=== PATIENT | male | born 1955 | race Caucasian/White ===

== ENCOUNTER 2020-12-17 12:17 | Outpatient (REF) | payer OTHER, SELFPAY ==
[2020-12-17 12:49] LABS: MANUAL DIFF FLAG NO
[2020-12-17 12:51] LABS: Basophils Absolute Auto 0.1 X10*3/uL (0.0-0.2); Basophils Percent Auto 0.9 % (0-2); Eosinophils Absolute Auto 0.5 X10*3/uL (0.0-0.4); Eosinophils Percent Auto 6.2 % (0-4); Hematocrit 41.4 % (42-52); Hemoglobin 13.4 g/dl (14.0-18.0); Imm Gran Abs Auto 0.04 X10*3/uL (0.00-0.03); Imm Gran Pct Auto 0.5 % (0.0-0.4); Lymphocytes Absolute Auto 2.3 X10*3/uL (1.2-4.9); Lymphocytes Percent Auto 26.7 % (20-40); Mean Corpuscular HGB Conc 32.4 g/dl (31.0-36.0); Mean Corpuscular Hemoglobin 29.8 pg (27.0-33.0); Mean Corpuscular Volume 92.2 fL (80-98); Mean Platelet Volume 10.5 fL (9.4-12.4); Monocytes Absolute Auto 0.6 X10*3/uL (0.1-1.2); Monocytes Percent Auto 6.4 % (2-11); Neutrophils Absolute Auto 5.1 X10*3/uL (2.0-8.3); Neutrophils Percent Auto 59.3 % (45-73); Platelet Count 321 X10*3/uL (160-400); Red Blood Count 4.49 X10*6/uL (4.60-5.80); Red Cell Distribution Width 12.7 % (11.0-16.0); White Blood Count 8.6 X10*3/uL (4.8-10.8)
[2020-12-17 13:43] LABS: Albumin Level 4.4 g/dL (3.5-5.0); Anion Gap 15 (12-20); Blood Urea Nitrogen 20 mg/dL (9-16); Calcium 9.4 mg/dL (8.4-10.2); Carbon Dioxide 26 mmol/L (22-29); Chloride 103 mmol/L (96-108); Estimated Glomerular Filt Rate 46; Magnesium 1.7 mg/dL (1.6-2.6); Phosphorus 3.4 mg/dL (2.7-4.5); Potassium 4.4 mmol/L (3.3-5.1); Sodium 140 mmol/L (135-145)
[2020-12-18 22:11] LABS: Prot Elec - Alpha1 0.3 g/dL (0.2-0.3); Prot Elec - Beta 1 0.5 g/dL (0.4-0.6); Prot Elec - Beta 2 0.4 g/dL (0.2-0.5); Prot Elec - Gamma 0.9 g/dL (0.8-1.7)
[2020-12-19 11:42] LABS: PEU-Protein Creat Ratio Rand 1.197 (0.022-0.128); PEU-Rand. Prot/Creat Ratio 1197 mg/g creat (22-128); PEU-Random Ur. Gamma Globulin 12 %; PEU-Random Urine A1 Globulin 4 %; PEU-Random Urine A2 Globulin 6 %; PEU-Random Urine Albumin 66 %; PEU-Random Urine Beta Globulin 12 %; PEU-Random Urine Creatinine 127 mg/dL (20-320); PEU-Random Urine Protein 152 mg/dL (5-25)
[2020-12-19 12:01] LABS: Calcium (PTHI) 9.9 mg/dL (8.6-10.3); PTHI 45 pg/mL (14-64)
== END 2020-12-17 12:18 | disposition home or self-care (01) ==
LOC: HO.LAB 12:17
PROVIDERS: PCP Family Medicine; Visit Provider Internal Medicine Hypertension Specialist
DX: I13.10 Hypertensive heart and chronic kidney disease without heart failure, with stage 1 through stage 4 chronic kidney disease, or unspecified chronic kidney disease (principal); N18.2 Chronic kidney disease, stage 2 (mild); E83.52 Hypercalcemia
CPT/HCPCS: 80051; 82040; 82310; 82565; 82570; 83735; 83970; 84100; 84155; 84156; 84165; 84166; 84520; 85025

== ENCOUNTER 2021-01-15 13:17 | Emergency (ER) | payer OTHER, SELFPAY ==
--- NOTE | ~2021-01-15 | XR_ITS ---
EXAMINATION: XR CHEST CLINICAL INFORMATION: Chest pain COMPARISON: None TECHNIQUE: Frontal view of the chest was obtained. FINDINGS: No significant abnormality is noted involving the heart, lungs, mediastinum, bony thorax or soft tissues. XR/XR chest 1V IMPRESSION: Unremarkable chest examination.
[2021-01-15 14:31] VITALS: BP 133/70; PULSE 64; RESP 14; TEMP 536.9; TEMP 998.5; O2SAT 97; BMI 37.1
--- NOTE | 2021-01-15 20:57 | ECG_ITS ---
Test Reason : ABD PAIN Blood Pressure : / mmHG Vent. Rate : 053 BPM Atrial Rate : 053 BPM P-R Int : 176 ms QRS Dur : 138 ms QT Int : 450 ms P-R-T Axes : 036 -12 050 degrees QTc Int : 422 ms Sinus bradycardia Left ventricular hypertrophy with QRS widening and repolarization abnormality Abnormal ECG When compared to the previous EKG of QRS has widened now. Referred By: Roslyn Rose Electronically Signed By:Hugo Robbins
--- NOTE | 2021-01-15 21:00 | ED_ITS ---
HPI - Abdominal Pain General Chief Complaint: Abdominal Pain Stated Complaint: EPIGATRIC PAIN Time Seen by Provider: 01/15/21 20:13 History of Present Illness HPI narrative: Patient is a 65-year-old male presents today with having abdominal pain in the epigastric area. The pain is dull in nature. It is burning. It has been ongoing for about a month is fairly constant. It is worse with eating. Patient denies any chest pain shortness of breath diaphoresis. No vomiting. No nausea. No diarrhea. No abdominal surgery in the past. Patient went to urgent care had an EKG done subsequently was sent to the emergency department for further evaluation. Denies any coughing congestion upper respiratory symptoms. Denies any change in diet. No recent NSAID use. Patient from home. Patient has a history of diabetes. No history of hypertension. No history of high cholesterol, smoking, mi. Related Data Previous Rx's Medication Instructions Recorded omeprazole magnesium [Prilosec OTC] 20 mg PO DAILY #14 tab 01/16/21 Allergies Allergy/AdvReac Type Severity Reaction Status Date / Time No Known Allergies Allergy Unverified 07/04/20 15:59 [No Known Allergies*] Review of Systems Review of Systems Constitutional: No Weight loss, No Fever, No Chills, No Night Sweats, No Fatigue, No Malaise ENT/Mouth: No Hearing loss, No Ear Pain, No Nasal Congestion, No Sinus Pain, No Hoarseness, No sore throat, No Rhinorrhea, No Swallowing Difficulty Eyes: No Eye Pain, No Swelling, No Redness, No Foreign Body, No Discharge, No Vision Changes Cardiovascular: No Chest Pain, No SOB, No Dyspnea on Exertion, No Orthopnea, No Edema, No Palpitations Respiratory: No Cough, No Sputum, No Wheezing, No Smoke Exposure, No Dyspnea Gastrointestinal: No Nausea, No Vomiting, No Diarrhea, No Constipation, positive abdominal Pain, No Hematochezia, No Melena Genitourinary: no irregular bleeding, No Dysuria, No Urinary Frequency, No Hematuria, No Urinary Incontinence, No Urgency, No Flank Pain, No Urinary Flow Changes, No Hesitancy Musculoskeletal: No joint pain, No Myalgias, No Joint Swelling Skin: No Skin Lesions, No rash Neuro: No Weakness, No Numbness, No Paresthesias, No Loss of Consciousness, No Dizziness, No Headache Psych: No Anxiety/Panic, No Depression, No SI/HI/AH/VH, No Social Issues, Heme/Lymph: No Bruising, No Bleeding,No Lymphadenopathy Endocrine: No Polyuria, No Polydipsia, No Temperature Intolerance Physical Exam Vital Signs: Vital Signs: Last Vital Signs Temp 998.5 F H 01/15/21 14:31 Pulse 56 01/15/21 23:14 Resp 16 01/15/21 23:14 BP 146/73 H 01/15/21 23:14 Pulse Ox 96 01/15/21 23:14 Body Mass Index 37.1 Appearance: Alert. Oriented X3. No acute distress. Eyes: Pupils equal, round and reactive to light. ENT: Pharynx normal. Neck: Normal inspection. Neck supple. No lymph nodes noted. No crepitus CVS: Normal heart rate and rhythm. Pulses normal. Normal S1 and S2 Respiratory: No respiratory distress. Breath sounds normal. No Wheezing. No rales Abdomen: Soft and nontender. No rigidity. No distention. good BS x4 Skin: Skin warm and dry. Normal skin color. Normal skin turgor. Extremities: No lower extremity edema. Neurovascular intact to all extremities. No Lacerations. No Rash Neuro: Oriented X 3. No motor deficit. No sensory deficit. Moving all extermities. No slurred speech MDM - Abdominal Pain MDM Narrative Medical decision making narrative: Patient had epigastric pain atypical for ACS. Creatinine is minimally elevated which is also chronic. Patient's liver function tests are normal. Less likely biliary. Lipase is normal no evidence for pancreatitis. Pain has been persistent. Likely secondary to gastritis. However patient's EKG showed a new left bundle-branch block. The EKG was c ompared to an old EKG from 2017. Patient's case discussed with cardiology. Will get 2 sets of cardiac enzymes. If they are negative will have patient follow up closely with Cardiology. Currently in stable condition. Will start patient on PPI. Differential Diagnosis Differential diagnosis: Likely abdominal pain, acute appendicitis, bowel perforation, constipation, diverticulitis, endometriosis, gastritis, pa ncreatitis, peptic ulcer disease, renal colic and small bowel obstruction Lab Data Result diagrams: 01/15/21 21:19 01/15/21 21:19 Labs: Lab Results 01/15/21 01/15/21 01/15/21 Range/Units 21:19 21:19 21:19 WBC 11.6 H (4.8-10.8) X10*3/uL RBC 4.43 L (4.60-5.80) X10*6/uL Hgb 13.4 L (14.0-18.0) g/dl Hct 41.2 L (42-52) % MCV 93.0 (80-98) fL MCH 30.2 (27.0-33.0) pg MCHC 32.5 (31.0-36.0) g/dl RDW 13.2 (11.0-16.0) % Plt Count 325 (160-400) X10*3/uL MPV 10.1 (9.4-12.4) fL Immature Gran % (Auto) 0.4 (0.0-0.4) % Neut % (Auto) 64.1 (45-73) % Lymph % (Auto) 25.5 (20-40) % [place] % (Auto) 6.2 (2-11) % Eos % (Auto) 3.3 (0-4) % Baso % (Auto) 0.5 (0-2) % Lymph # (Auto) 2.9 (1.2-4.9) X10*3/uL Brewster # (Auto) 0.7 (0.1-1.2) X10*3/uL Eos # (Auto) 0.4 (0.0-0.4) X10*3/uL Baso # (Auto) 0.1 (0.0-0.2) X10*3/uL Abs Immat Gran (auto) 0.05 H (0.00-0.03) X10*3/uL Absolute Neuts (auto) 7.4 (2.0-8.3) X10*3/uL Absolute Nucleated RBC 0.000 (0.0-0.012) X10*3/uL Nucleated RBC % (auto) 0.0 (0.0-0.2) /100WBC Hold Blue Top SEE NOTE Sodium 141 (135-145) mmol/L Potassium 4.1 (3.3-5.1) mmol/L Chloride 105 (96-108) mmol/L Carbon Dioxide 25 (22-29) mmol/L Anion Gap 15 (12-20) BUN 21 H (9-16) mg/dL Creatinine 1.43 H (0.5-1.4) mg/dL Estim Creat Clear Calc 57.5 Estimated GFR 49 Random Glucose 121 H (60-115) mg/dL Calcium 9.7 (8.4-10.2) mg/dL Total Bilirubin 0.5 (0.0-1.0) mg/dL AST 19 (5-37) U/L ALT 16 (0-40) U/L Alkaline Phosphatase 87 (39-117) U/L Troponin I High Sens (<3.5-35.0) ng/L Total Protein 7.9 (6.5-8.0) g/dL Albumin 4.8 (3.5-5.0) g/dL Lipase 50 (8-78) U/L Urine Color Urine Appearance Urine pH (5.0-8.0) Ur Specific [place] (1.005-1.025) Urine Protein (NEG-TRACE) MG/DL Urine Glucose (UA) (NEG) MG/DL Urine Ketones (NEG) MG/DL Urine Blood (NEG) Urine Nitrite (NEG) Ur Leukocyte Esterase (NEG) Urine RBC (0) /HPF Urine WBC (0-4) /HPF Ur Squamous Epith Cells /LPF Urine Bacteria /LPF Urine Mucus /LPF 01/15/21 01/15/21 01/15/21 Range/Units 21:19 22:42 23:14 WBC (4.8-10.8) X10*3/uL RBC (4.60-5.80) X10*6/uL Hgb (14.0-18.0) g/dl Hct (42-52) % MCV (80-98) fL MCH (27.0-33.0) pg MCHC (31.0-36.0) g/dl RDW (11.0-16.0) % Plt Count (160-400) X10*3/uL MPV (9.4-12.4) fL Immature Gran % (Auto) (0.0-0.4) % Neut % (Auto) (45-73) % Lymph % (Auto) (20-40) % [place] % (Auto) (2-11) % Eos % (Auto) (0-4) % Baso % (Auto) (0-2) % Lymph # (Auto) (1.2-4.9) X10*3/uL [place] # (Auto) (0.1-1.2) X10*3/uL Eos # (Auto) (0.0-0.4) X10*3/uL Baso # (Auto) (0.0-0.2) X10*3/uL Abs Immat Gran (auto) (0.00-0.03) X10*3/uL Absolute Neuts (auto) (2.0-8.3) X10*3/uL Absolute Nucleated RBC (0.0-0.012) X10*3/uL Nucleated RBC % (auto) (0.0-0.2) /100WBC Hold Blue Top Sodium (135-145) mmol/L Potassium (3.3-5.1) mmol/L Chloride (96-108) mmol/L Carbon Dioxide (22-29) mmol/L Anion Gap (12-20) BUN (9-16) mg/dL Creatinine (0.5-1.4) mg/dL Estim Creat Clear Calc Estimated GFR Random Glucose (60-115) mg/dL Calcium (8.4-10.2) mg/dL Total Bilirubin (0.0-1.0) mg/dL AST (5-37) U/L ALT (0-40) U/L Alkaline Phosphatase (39-117) U/L Troponin I High Sens 9.7 11.9 (<3.5-35.0) ng/L Total Protein (6.5-8.0) g/dL Albumin (3.5-5.0) g/dL Lipase (8-78) U/L Urine Color YELLOW Urine Appearance CLEAR Urine pH 5.5 (5.0-8.0) Ur Specific [place] >= 1.030 H (1.005-1.025) Urine Protein 2+ H (NEG-TRACE) MG/DL Urine Glucose (UA) NEG (NEG) MG/DL Urine Ketones NEG (NEG) MG/DL Urine Blood TRACE (NEG) Urine Nitrite NEG (NEG) Ur Leukocyte Esterase NEG (NEG) Urine RBC 0-2 (0) /HPF Urine WBC 0-2 (0-4) /HPF Ur Squamous Epith Cells 1+ /LPF Urine Bacteria NONE /LPF Urine Mucus TRACE /LPF ECG Data Interpretation: Heart rate is 70 with significant left bundle-branch block which is new. Discharge Plan Discharge Clinical Impression: Gastritis, Chest pain Patient Disposition: Home, Self-Care Instructions: Chest Pain (ED), Gastritis (ED) Prescriptions: New omeprazole magnesium [Prilosec OTC] 20 mg tablet,delayed release (DR/EC) 20 mg PO DAILY Qty: 14 RF: 0 Referrals: Winifred Herrera MD [Primary Care Provider] - 2 days PMF Past Medical History Attestation statement: The following information was validated with the patient. Medical History HTN (hypertension) IDDM (insulin dependent diabetes mellitus) Social History Social History Advance Directives: No Advance Directives Information Provided: No
[2021-01-15] MEDS: Magnesium Hydrox/Alum Hydrox 30 ML ORAL.SUSP PO (21:20)
[2021-01-15] MEDS: ondansetron HCL 4 MG/2 ML VIAL IVPUSH (21:21)
[2021-01-15] MEDS: PHENobarb/Hyoscy/Atropine/Scop 10 ML ELIXIR PO (21:21)
[2021-01-15] MEDS: 0.9 % Sodium Chloride 1,000 ML 999 ML IV (21:21)
[2021-01-15] MEDS: Lidocaine HCl Viscous 2 % 15 ML SOLUTION MUCOUS MEM (21:21)
[2021-01-15 21:29] LABS: MANUAL DIFF FLAG NO
[2021-01-15 21:31] LABS: Basophils Absolute Auto 0.1 X10*3/uL (0.0-0.2); Basophils Percent Auto 0.5 % (0-2); Eosinophils Absolute Auto 0.4 X10*3/uL (0.0-0.4); Eosinophils Percent Auto 3.3 % (0-4); Hematocrit 41.2 % (42-52); Hemoglobin 13.4 g/dl (14.0-18.0); Imm Gran Abs Auto 0.05 X10*3/uL (0.00-0.03); Imm Gran Pct Auto 0.4 % (0.0-0.4); Lymphocytes Absolute Auto 2.9 X10*3/uL (1.2-4.9); Lymphocytes Percent Auto 25.5 % (20-40); Mean Corpuscular HGB Conc 32.5 g/dl (31.0-36.0); Mean Corpuscular Hemoglobin 30.2 pg (27.0-33.0); Mean Platelet Volume 10.1 fL (9.4-12.4); Monocytes Absolute Auto 0.7 X10*3/uL (0.1-1.2); Monocytes Percent Auto 6.2 % (2-11); Neutrophils Absolute Auto 7.4 X10*3/uL (2.0-8.3); Neutrophils Percent Auto 64.1 % (45-73); Platelet Count 325 X10*3/uL (160-400); Red Blood Count 4.43 X10*6/uL (4.60-5.80); Red Cell Distribution Width 13.2 % (11.0-16.0); White Blood Count 11.6 X10*3/uL (4.8-10.8)
[2021-01-15 21:52] LABS: Alanine Aminotransferase 16 U/L (0-40); Albumin Level 4.8 g/dL (3.5-5.0); Alkaline Phosphatase 87 U/L (39-117); Anion Gap 15 (12-20); Aspartate Amino Transferase 19 U/L (5-37); Bilirubin Total 0.5 mg/dL (0.0-1.0); Blood Urea Nitrogen 21 mg/dL (9-16); Calcium 9.7 mg/dL (8.4-10.2); Carbon Dioxide 25 mmol/L (22-29); Chloride 105 mmol/L (96-108); Creatinine Clr Calc Pharmacy 57.5; Estimated Glomerular Filt Rate 49; Glucose Random 121 mg/dL (60-115); Lipase 50 U/L (8-78); Potassium 4.1 mmol/L (3.3-5.1); Sodium 141 mmol/L (135-145); Total Protein 7.9 g/dL (6.5-8.0)
[2021-01-15 21:55] LABS: Troponin-I High Sensitivity 9.7 ng/L (<3.5-35.0)
[2021-01-15 22:50] LABS: Glucose Urine UA NEG (NEG); Leukocyte Esterase Urine NEG (NEG); Nitrite Urine NEG (NEG); PH 5.5 (5.0-8.0); Specific Gravity - Urine >= 1.030 (1.005-1.025); Urine Blood TRACE (NEG); Urine Ketones NEG (NEG); Urine Protein 2+ MG/DL (NEG-TRACE)
[2021-01-15 22:51] LABS: Appearance Urine CLEAR; Color Urine YELLOW
[2021-01-15 22:57] LABS: Mucus Urine TRACE /LPF; RBC Urine 0-2 /HPF (0); Squamous Epithelial Cell Urine 1+ /LPF; WBC Urine 0-2 /HPF (0-4)
[2021-01-15 23:14] VITALS: BP 146/73; PULSE 56; RESP 16; O2SAT 96
--- NOTE | 2021-01-15 23:15 | PC.NURSE ---
This RN assuming care of this pt. Pt sitting upright n bed CAOx4, speaking full sentences, denies pain/discomfort. Repeat Troponin obtained and sent. VSS. Awaiting lab results. Pt resting in bed watching TV, continue to monitor.
[2021-01-16 01:06] LABS: Troponin-I High Sensitivity 11.3 ng/L (<3.5-35.0)
== END 2021-01-16 01:00 | disposition home or self-care (01) ==
PROVIDERS: Emergency Provider Emergency Medicine Emergency Medical Services; PCP Family Medicine
DX: K29.70 Gastritis, unspecified, without bleeding (principal); R10.13 Epigastric pain; I10 Essential (primary) hypertension; E11.9 Type 2 diabetes mellitus without complications; Z79.899 Other long term (current) drug therapy
CPT/HCPCS: 36415; 71045; 80053; 81001; 83690; 84484; 85025; 93005; 96365; 96375; 99284; J2405

== ENCOUNTER → 2021-05-29 09:43 | Outpatient (REF) | payer OTHER, SELFPAY ==
--- NOTE | ~2021-05-29 | NM_ITS ---
Lexiscan Myocardial perfusion study Indication: Left bundle branch block, abnormal EKG, assess for coronary disease and ischemia Technique: The patient was brought in for a Lexiscan perfusion study on 05/29/2021 and was injected 0.4 mg of Lexiscan intravenously. Within a minute of this injection 40 mCi of sestamibi was given intravenously. Images were obtained using the SPECT gamma camera interlaced with the gating device. Images were obtained in supine position. Resting perfusion study was performed on 06/02/2021. Patient was administered 40 mCi of sestamibi intravenously at rest. Images were then obtained in supine position. Total DLP 116mGy-cm. Images were processed with the software and compared side to side in short axis, horizontal long axis and vertical long axis views. Findings: Raw acquisition was reviewed. The stress perfusion study showed diminished tracer uptake along the basal to mid septum, inferior wall and inferior septum. No significant change with CT attenuation correction. The gated study shows mildly diminished LV systolic function with calculated LVEF of 49%. LV cavity is normal in size. The gated study shows diminished wall thickening and contractility in the basal to mid inferior wall and inferior septum. Resting study shows mildly improved tracer uptake in the above areas compared to stress acquisition. Gating at rest reveals LVEF 61%. Reduced contractility in the basal to mid septum, inferior septum. The findings are consistent with perfusion defect in the basal to mid septum, inferior septum and inferior wall with reversible and fixed components. NM/NM antonette perf SPECT rest & str Impression: 1. Myocardial perfusion imaging study shows possible ischemia in the basal to mid septum, inferior septum and inferior wall. Left bundle branch block may play some role as well. 2. Gated LVEF is 49% during stress and 61% during rest. Correlate with echocardiogram. 3. Transient ischemic dilatation not present. EKG component of the test reported separately.
--- NOTE | 2021-05-29 09:47 | CA_ITS ---
Acquisition Time: 2021-05-29 10:00:58 Total Exercise Time: 00:02:00 Test Indications: Abnormal ECG Medications: FLUOXETINE LIPITOR OMEPRAZOLE LISINOPRIL ASA METFORMIN AMLODIPINE Protocol: LEXISCAN Max HR: 087 BPM 56% of Pred: 154 BPM Max BP: 140/078 mmHG Max Work Load: 1.0 METS Pharmacological stress test with Lexiscan injecition, while sitting, without anginal symptoms, without arrythmia, with normotensive response to injection, with nondiagnostic EKG for ischemia. Nuclear images pending. Test reviewed with Dr Cai. Referred By: Chapo Napoles Overread By: KAREN MARTINEZ
== END ==
LOC: HO.CARD 09:43
PROVIDERS: Visit Provider Internal Medicine Cardiovascular Disease
DX: R94.31 Abnormal electrocardiogram [ECG] [EKG] (principal); I44.7 Left bundle-branch block, unspecified
CPT/HCPCS: 78452; 93017; A9500; J0280; J2785

== ENCOUNTER 2021-12-17 11:47 | Outpatient (REF) | payer MEDICARE, SELFPAY ==
--- NOTE | ~2021-12-17 | XR_ITS ---
EXAMINATION: XR BILATERAL KNEES CLINICAL INFORMATION: Pain in bilateral knees. COMPARISON: None TECHNIQUE: 3 views of each knee. FINDINGS: RIGHT KNEE: There is loss of medial compartment joint space. The lateral and patellofemoral compartment joint spaces are normal. There is mild superior patellar spurring. No loose bodies or bony erosive changes. There is small inferior patellar enthesophyte. The soft tissues are normal. There is moderate suprapatellar joint effusion seen. LEFT KNEE: There is loss of patellofemoral and medial compartment joint space. No visible acute fracture, dislocation or subluxation seen. There is moderate suprapatellar joint effusion. There is a small enthesophyte along the superior and lateral aspect of the patella. 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 There is a moderate enthesophyte along the superior and lateral left patella. No visible acute fracture or dislocation seen.
--- NOTE | ~2021-12-17 | XR_ITS ---
EXAMINATION: XR BILATERAL KNEES CLINICAL INFORMATION: Pain in bilateral knees. COMPARISON: None TECHNIQUE: 3 views of each knee. FINDINGS: RIGHT KNEE: There is loss of medial compartment joint space. The lateral and patellofemoral compartment joint spaces are normal. There is mild superior patellar spurring. No loose bodies or bony erosive changes. There is small inferior patellar enthesophyte. The soft tissues are normal. There is moderate suprapatellar joint effusion seen. LEFT KNEE: There is loss of patellofemoral and medial compartment joint space. No visible acute fracture, dislocation or subluxation seen. There is moderate suprapatellar joint effusion. There is a small enthesophyte along the superior and lateral aspect of the patella. 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 There is a moderate enthesophyte along the superior and lateral left patella. No visible acute fracture or dislocation seen.
== END 2021-12-17 11:48 | disposition home or self-care (01) ==
LOC: HO.XRAY 11:47
PROVIDERS: Visit Provider Family Medicine
DX: M25.561 Pain in right knee (principal); M25.562 Pain in left knee
CPT/HCPCS: 73562

== ENCOUNTER 2022-01-22 16:10 | Outpatient (REF) | payer MEDICARE, MEDICAID, SELFPAY ==
[2022-01-22 16:22] LABS: MANUAL DIFF FLAG NO
[2022-01-22 16:38] LABS: Basophils Absolute Auto 0.1 X10*3/uL (0.0-0.2); Basophils Percent Auto 0.6 % (0-2); Eosinophils Absolute Auto 0.6 X10*3/uL (0.0-0.4); Eosinophils Percent Auto 5.7 % (0-4); Hematocrit 40.3 % (42.0-52.0); Imm Gran Abs Auto 0.05 X10*3/uL (0.00-0.03); Imm Gran Pct Auto 0.5 % (0.0-0.4); Lymphocytes Absolute Auto 2.6 X10*3/uL (1.2-4.9); Lymphocytes Percent Auto 24.1 % (20-40); Mean Corpuscular HGB Conc 32.3 g/dl (31.0-36.0); Mean Corpuscular Hemoglobin 29.9 pg (27.0-33.0); Mean Corpuscular Volume 92.6 fL (80.0-98.0); Mean Platelet Volume 10.3 fL (9.4-12.4); Monocytes Percent Auto 9.4 % (2-11); Neutrophils Absolute Auto 6.4 x10*3/uL (2.0-8.3); Neutrophils Percent Auto 59.7 % (45-73); Platelet Count 333 X10*3/uL (160-400); Red Blood Count 4.35 X10*6/uL (4.60-5.80); White Blood Count 10.8 X10*3/uL (4.8-10.8)
[2022-01-22 17:02] LABS: Alanine Aminotransferase 20 U/L (0-40); Albumin Level 4.4 g/dL (3.5-5.0); Alkaline Phosphatase 84 U/L (39-117); Anion Gap 16 (12-20); Aspartate Amino Transferase 22 U/L (5-37); Bilirubin Total 0.4 mg/dL (0.0-1.0); Blood Urea Nitrogen 37 mg/dL (9-16); Calcium 10.1 mg/dL (8.4-10.2); Carbon Dioxide 26 mmol/L (22-29); Chloride 99 mmol/L (96-108); Estimated Glomerular Filt Rate 31; Glucose Random 263 mg/dL (60-115); Potassium 4.4 mmol/L (3.3-5.1); Sodium 137 mmol/L (135-145); Total Protein 7.5 g/dL (6.5-8.0)
[2022-01-22 17:03] LABS: Creatinine Urine 61.91 mg/dL; Protein/Creatinine Ratio, Ur 0.26 (<0.2); Total Protein Urine Random 16 mg/dL (<12)
== END 2022-01-22 16:11 | disposition home or self-care (01) ==
LOC: HO.LAB 16:10
PROVIDERS: PCP Family Medicine; Visit Provider Internal Medicine Hypertension Specialist
DX: N18.31 Chronic kidney disease, stage 3a (principal)
CPT/HCPCS: 36415; 80053; 84156; 85025

== ENCOUNTER 2023-03-31 15:22 | Outpatient (REF) | payer MEDICARE, MEDICAID, SELFPAY ==
--- NOTE | ~2023-03-31 | XR_ITS ---
EXAMINATION: XR WRIST, RIGHT CLINICAL INFORMATION: Persistent pain and swelling right wrist. COMPARISON: None TECHNIQUE: Right wrist is imaged in 4 views. FINDINGS: The carpal lunate appears deformed, mildly flattened and slightly rotated. There is subtle increased mineralization. The findings are suspicious for lunate osteonecrosis (Kienbock disease). The ulnar variance is neutral. There is no acute fracture or dislocation. Some mild narrowing is present at the triscaphe joint. There is extensive atherosclerotic calcification of the vasculature. 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 - Mild narrowing triscaphe joint. - Extensive atherosclerotic calcification vasculature. - No acute fracture or dislocation.
--- NOTE | ~2023-03-31 | XR_ITS ---
EXAMINATION: XR ANKLE, LEFT CLINICAL INFORMATION: Persistent pain and swelling left ankle. COMPARISON: None available. TECHNIQUE: Left ankle is imaged in 3 views. FINDINGS: There is no acute or healing fracture, dislocation, or destructive process. There is mild soft tissue swelling just distal to the malleoli, greater on the medial side. The ankle mortise is symmetric. The talar dome shows no osteochondral lesion. There is benign ossification along the distal lateral tibia in the intraosseous region. Minor spurring is present at the distal malleoli. There is moderate plantar calcaneal spur and borderline posterior calcaneal spur. The retrocalcaneal recess is preserved. The subtalar joint is not well visualized presumably related to positioning. No visible coalition on plain film. There are extensive atherosclerotic calcifications of the vasculature. XR/XR ankle LT min 3V IMPRESSION: -Mild soft tissue swelling, greater on medial side. -No fracture, dislocation, or destructive process. -Moderate plantar calcaneal spur. -Subtalar joint not well visualized presumably related to positioning. No visible coalition on plain film.
== END 2023-03-31 15:23 | disposition home or self-care (01) ==
LOC: HO.HHCX 15:22
PROVIDERS: Visit Provider Student in an Organized Health Care Education/Training Program
DX: M25.532 Pain in left wrist (principal); M25.432 Effusion, left wrist; M25.472 Effusion, left ankle
CPT/HCPCS: 73110; 73610

== ENCOUNTER → 2023-04-14 12:56 | Outpatient (BNVA) | payer MEDICARE, MEDICAID, SELFPAY | PROVIDERS: PCP Family Medicine; Visit Provider Nurse Practitioner Family | DX: G47.52 REM sleep behavior disorder (principal); R06.81 Apnea, not elsewhere classified; G47.19 Other hypersomnia; R06.83 Snoring; E66.9 Obesity, unspecified; Z68.35 Body mass index [BMI] 35.0-35.9, adult | CPT/HCPCS: 99202 ==

== ENCOUNTER → 2023-06-22 12:56 | Outpatient (BNVA) | payer MEDICARE, MEDICAID, SELFPAY | PROVIDERS: PCP Family Medicine; Visit Provider Orthopaedic Surgery ==

== ENCOUNTER 2023-07-13 11:56 | Outpatient (REF) | payer MEDICARE, MEDICAID, SELFPAY ==
[2023-07-13 13:20] LABS: Hemoglobin 15.8 g/dl (14.0-18.0); Mean Corpuscular HGB Conc 32.2 g/dl (31.0-36.0); Mean Corpuscular Hemoglobin 29.5 pg (27.0-33.0); Mean Corpuscular Volume 91.4 fL (80.0-98.0); Platelet Count 331 X10*3/uL (160-400); Red Blood Count 5.36 X10*6/uL (4.60-5.80); Red Cell Distribution Width 13.2 % (11.0-16.0); White Blood Count 8.3 X10*3/uL (4.8-10.8)
[2023-07-13 14:36] LABS: Creatinine Urine 70.29 mg/dL; Protein/Creatinine Ratio, Ur 0.36 (<0.2); Total Protein Urine Random 25 mg/dL (<12)
[2023-07-13 14:44] LABS: Anion Gap 14 (12-20); Blood Urea Nitrogen 31 mg/dL (9-16); Calcium 10.2 mg/dL (8.4-10.2); Carbon Dioxide 27 mmol/L (22-29); Chloride 104 mmol/L (96-108); Estimated Glomerular Filt Rate 39; Glucose Random 150 mg/dL (60-115); Potassium 4.1 mmol/L (3.3-5.1); Sodium 141 mmol/L (135-145)
[2023-07-15 16:19] LABS: Calcium (PTHI) 9.9 mg/dL (8.6-10.3); PTHI 19 pg/mL (16-77)
== END 2023-07-13 11:57 | disposition home or self-care (01) ==
LOC: HO.LAB 11:56
PROVIDERS: Visit Provider Internal Medicine Hypertension Specialist
DX: E11.22 Type 2 diabetes mellitus with diabetic chronic kidney disease (principal); N18.32 Chronic kidney disease, stage 3b
CPT/HCPCS: 36415; 80048; 82306; 82570; 83970; 84156; 85027

== ENCOUNTER 2023-08-16 16:15 | Outpatient (REF) | payer MEDICARE, MEDICAID, SELFPAY ==
[2023-08-16 17:11] LABS: Anion Gap 17 (12-20); Blood Urea Nitrogen 27 mg/dL (9-16); Calcium 10.4 mg/dL (8.4-10.2); Carbon Dioxide 23 mmol/L (22-29); Chloride 104 mmol/L (96-108); Estimated Glomerular Filt Rate 36; Potassium 4.1 mmol/L (3.3-5.1); Sodium 140 mmol/L (135-145)
[2023-08-16 17:46] LABS: Appearance Urine Clear; Color Urine Yellow; Glucose Urine UA >=1000 mg/dL (Negative); Leukocyte Esterase Urine Trace (Negative); Nitrite Urine Negative (Negative); PH 5.5 (5.0-9.0); Specific Gravity - Urine >= 1.030 (1.005-1.025); UMIC TRIGGER UA YES; Urine Blood Negative (Negative); Urine Ketones Negative (Negative); Urine Protein 30 (1+) mg/dL (Neg-Trace)
[2023-08-16 17:51] LABS: Bacteria Urine None Seen (None Seen); Hyaline Casts Urine 0-2 /LPF (0-2); RBC Urine 0-2 /HPF (0-2); Squamous Epithelial Cell Urine 0-2 /HPF (0-2); WBC Urine 0-5 /HPF (0-5)
[2023-08-16 18:31] LABS: Creatinine Urine 176.46 mg/dL; Microalbum/Creatinine Ratio Ur 165.4 ug/mg cr (<30); Protein/Creatinine Ratio, Ur 0.29 (<0.2); Total Protein Urine Random 51 mg/dL (<12)
== END 2023-08-16 16:16 | disposition home or self-care (01) ==
LOC: HO.LAB 16:15
PROVIDERS: Visit Provider Internal Medicine Nephrology
DX: E11.22 Type 2 diabetes mellitus with diabetic chronic kidney disease (principal); I12.9 Hypertensive chronic kidney disease with stage 1 through stage 4 chronic kidney disease, or unspecified chronic kidney disease; N18.32 Chronic kidney disease, stage 3b
CPT/HCPCS: 36415; 80051; 81001; 82043; 82310; 82565; 82570; 84156; 84520

== ENCOUNTER 2024-01-27 13:19 | Outpatient (REF) | payer MEDICARE, SELFPAY ==
[2024-01-27 13:39] LABS: MANUAL DIFF FLAG NO
[2024-01-27 13:52] LABS: Basophils Absolute Auto 0.1 X10*3/uL (0.0-0.2); Basophils Percent Auto 0.9 % (0-2); Eosinophils Absolute Auto 0.7 X10*3/uL (0.0-0.4); Eosinophils Percent Auto 8.4 % (0-4); Hematocrit 46.8 % (42.0-52.0); Hemoglobin 15.4 g/dl (14.0-18.0); Imm Gran Abs Auto 0.07 X10*3/uL (0.00-0.03); Imm Gran Pct Auto 0.8 % (0.0-0.4); Lymphocytes Absolute Auto 2.3 X10*3/uL (1.2-4.9); Lymphocytes Percent Auto 26.2 % (20-40); Mean Corpuscular HGB Conc 32.9 g/dl (31.0-36.0); Mean Corpuscular Volume 91.2 fL (80.0-98.0); Mean Platelet Volume 10.1 fL (9.4-12.4); Monocytes Absolute Auto 0.7 X10*3/uL (0.1-1.2); Monocytes Percent Auto 7.8 % (2-11); Neutrophils Absolute Auto 4.9 x10*3/uL (2.0-8.3); Neutrophils Percent Auto 55.9 % (45-73); Platelet Count 287 X10*3/uL (160-400); Red Blood Count 5.13 X10*6/uL (4.60-5.80); Red Cell Distribution Width 13.3 % (11.0-16.0); White Blood Count 8.7 X10*3/uL (4.8-10.8)
[2024-01-27 14:44] LABS: Parathyroid Hormone Intact 43.6 pg/mL (8.7-77.1)
[2024-01-27 14:47] LABS: Albumin Level 4.2 g/dL (3.5-5.0); Anion Gap 12 (12-20); Blood Urea Nitrogen 30 mg/dL (9-16); Calcium 9.8 mg/dL (8.4-10.2); Carbon Dioxide 24 mmol/L (22-29); Chloride 106 mmol/L (96-108); Estimated Glomerular Filt Rate 41; Magnesium 1.9 mg/dL (1.6-2.6); Potassium 4.2 mmol/L (3.3-5.1); Sodium 138 mmol/L (135-145)
[2024-01-27 14:56] LABS: Appearance Urine Clear; Color Urine Yellow; Glucose Urine UA >=1000 mg/dL (Negative); Leukocyte Esterase Urine Negative (Negative); Nitrite Urine Negative (Negative); Specific Gravity - Urine 1.025 (1.005-1.025); UMIC TRIGGER UA YES; Urine Blood Negative (Negative); Urine Ketones Negative (Negative); Urine Protein Trace mg/dL (Neg-Trace)
[2024-01-27 14:56] LABS: Vitamin D 25-OH Total 38.5 ng/mL (>30)
[2024-01-27 15:13] LABS: Bacteria Urine None Seen (None Seen); Hyaline Casts Urine 0-2 /LPF (0-2); RBC Urine 0-2 /HPF (0-2); Squamous Epithelial Cell Urine 0-2 /HPF (0-2); WBC Urine 0-5 /HPF (0-5)
[2024-01-27 15:39] LABS: Creatinine Urine 46.88 mg/dL; Microalbum/Creatinine Ratio Ur 243.1 ug/mg cr (<30); Protein/Creatinine Ratio, Ur 0.45 (<0.2); Total Protein Urine Random 21 mg/dL (<12)
== END 2024-01-27 13:20 | disposition home or self-care (01) ==
LOC: HO.LAB 13:19
PROVIDERS: Visit Provider Internal Medicine Nephrology
DX: E11.22 Type 2 diabetes mellitus with diabetic chronic kidney disease (principal); I10 Essential (primary) hypertension; N18.32 Chronic kidney disease, stage 3b
CPT/HCPCS: 36415; 80051; 81001; 82040; 82043; 82306; 82310; 82565; 82570; 83735; 83970; 84100; 84156; 84520; 85025

== ENCOUNTER 2024-07-26 10:12 | Outpatient (REF) | payer MEDICARE, SELFPAY ==
[2024-07-26 12:11] LABS: Estimated Average Glucose 194 mg/dL; Hemoglobin A1C 257.7512 umol/L; Hemoglobin A1c % 8.4 % (<6.0)
[2024-07-26 12:13] LABS: Alanine Aminotransferase 23 U/L (0-40); Albumin Level 4.2 g/dL (3.5-5.0); Alkaline Phosphatase 88 U/L (39-117); Anion Gap 10 (12-20); Aspartate Amino Transferase 27 U/L (5-37); Bilirubin Direct 0.2 mg/dL (0.0-0.5); Bilirubin Total 0.5 mg/dL (0.0-1.0); Blood Urea Nitrogen 27 mg/dL (9-16); Calcium 9.2 mg/dL (8.4-10.2); Carbon Dioxide 26 mmol/L (22-29); Chloride 110 mmol/L (96-108); Cholesterol 98 mg/dL (<200); Estimated Glomerular Filt Rate 48; Glucose Random 122 mg/dL (60-115); HDL Cholesterol 42 mg/dL (>40); LDL Cholesterol Calculated 42 mg/dL (<100); Sodium 142 mmol/L (135-145); Total Protein 7.4 g/dL (6.5-8.0); Triglycerides 74 mg/dL (<150)
[2024-07-26 12:13] LABS: Creatinine Urine 118.14 mg/dL
[2024-07-26 12:29] LABS: Microalbum/Creatinine Ratio Ur 528.1 ug/mg cr (<30)
== END 2024-07-26 10:13 | disposition home or self-care (01) ==
LOC: HO.HHCL 10:12
PROVIDERS: Visit Provider Family Medicine
DX: E11.22 Type 2 diabetes mellitus with diabetic chronic kidney disease (principal); N18.30 Chronic kidney disease, stage 3 unspecified; Z79.4 Long term (current) use of insulin
CPT/HCPCS: 36415; 80048; 80061; 80076; 82043; 82570; 83036

== ENCOUNTER 2025-01-03 14:20 | Outpatient (REF) | payer MEDICARE, SELFPAY ==
[2025-01-03 16:30] LABS: Anion Gap 11 (12-20); Blood Urea Nitrogen 28 mg/dL (9-16); Calcium 9.5 mg/dL (8.4-10.2); Carbon Dioxide 23 mmol/L (22-29); Chloride 110 mmol/L (96-108); Estimated Glomerular Filt Rate 49; Glucose Random 177 mg/dL (60-115); Potassium 4.2 mmol/L (3.3-5.1); Sodium 140 mmol/L (135-145)
--- OUTSIDE RECORDS SUMMARY | 2025-01-03 16:40 | XMS_ITS | Encounter Summary ---
Author Organization [employer] Address [address] [facility] [address] [place] [address] Care Team Providers Care Machine Tool Operator Name Role Phone Winifred Herrera MD Primary Care Provider Kyleigh Hyman PharmD Unavailable Maged Ricardo MD Unavailable [phone] Teodoro Chayo OD Unavailable [phone] Melvin Palma Unavailable Encounter Details Date Type Department Care Team (Late st Contact Info) Description 01/03/2025 Orders Only [facility] MEDICINE [address] [place], [place] [phone] Winifred Herrera MD [address] [place], [place] [phone] Social History Tobacco Use Types Packs/Day Years Used Date Smoking Tobacco: Never Passive Smoke Exposure: Never Smokeless Tobacco: Never Depression Answer Date Recorded Patient Health Questionnaire-9 Score 0 06/28/2024 Patient Health Questionnaire-9 Score 0 06/28/2024 Last PHQ-9: Questionnaire Data Not on file 0 06/28/2024 Housing Stability Answer Date Recorded What is your housing situation today? I have marcnella mehta 06/28/[address] you li ve. Do you have problems with any of the following? None of the above 06/28/2024 Food Insecurity Answer Date Recorded Within the past 12 months, y ou worried that your food would run out before you got money to buy more: Never True 06/28/2024 Within the past 12 months,th e food you bought just didn't last and you didn't have enough money to get more: Never True 08/2024 Transportation Answer Date Recorded In the past 12 months, has l ack of transportation kept you from medical appts, meetings, work or from getting things needed for daily living? No 06/28/2024 Utilities Answer Date Recorded In the past 12 months, has t he electric, gas, oil or water company threatened to shut off services in your home? No 06/28/2024 Depression Answer Date Recorded Patient Health Questionnaire-2 Score 0 06/28/2024 Internet Access Answer Date Recorded Internet Access Q1 Yes 06/28/2024 Internet Access Q2 Not on file 06/28/2024 Sex and Gender Information Value Date Recorded Sex Assigned at Male 08/17/2022 10:15 AM EDT Legal Sex Male 10:15 AM EDT Gender Identity Male 08/17/2022 10:15 AM EDT Sexual Orientation Straight 08/17/2022 10 :15 AM EDT documented as of this encounter Plan of Treatment Upcoming Encounters Date Type Department Care Team (Late st Contact Info) Description 02/02/2025 1:00 PM EDT Medication Management [facility] MEDICINE [address] [place] [address] RandysKyleigh Alvarenga, PharmD [address] [place] [address] documented as of this encounter Goals Goal Patient Goal Type Associated Problems Recent Progress Patient-Stated? Author Blood Pressure < 140/90 Blood Pressure 130/70(2024 10:32 AM EDT) No Randys-Darlin Masonsa, PharmD Hemoglobin A1c < 7 Result Component 8.2( 10:11 AM EDT) No RandysKyleigh Link, PharmD documented as of this encounter Procedures Procedure Name Priority Date/Time Associated Diagnosis Comments BASIC METABOLIC PANEL Routine 01/03/2025 2:23 PM EDT documented in this encounter Results * (ABNORMAL) Basic Metabolic Panel (01/03/2025 2:23 PM EDT) Sodium 140 135 - 145 mmol/L [facility] Potassium 4.2 3.3 - 5.1 mmol/L [facility] Chloride 110(H) 96 - 108 mmol/L [facility] Carbon Dioxide 23 22 - 29 mmol/L [facility] Anion Gap 11(L) 12 - 20 [facility] Urea Nitrogen (BUN) 28(H) 9 - 16 mg/dL [facility] Creatinine, Serum 1.42(H) 0.5 - 1.4 mg/dL [facility] Estimated Glomerular Filt Rate 49 [facility] Comment:Chronic Kidney Disea se: Estimated GFR < 60 mL/min/[id number] Kidney Disease: Estimated GFR < 15 mL/min/1.73m2 Glucose 177(H) 60 - 115 mg/dL [facility] Calcium 9.5 8.4 - 10.2 mg/dL [facility] 01/03/2025 2:23 PM EDT 01/03/2025 4:08 PM EDT Winifred Herrera MD LAB BLOOD ORDERABLES Final Result [facility] [address] [place] [phone] documented in this encounter Visit Diagnoses Not on filedocumented in this encounter Additional Health Concerns Assessment Noted Time PHQ-9 Depression Total Score: 0 06/28/20 24 3:55 PM EDT documented as of this encounter Care Teams Machine Tool Operator Relationship Specialty Start Date End Date Winifred Herrera MD [address] [place] [address] PCP - General Family Medicine 10/18/18 Kyleigh Hyman PharmD [address] [place] [address] Pharmacist Internal Medicine 02/15/23 Maged Ricardo MD [address] [facility] [address] [place] [phone] Nephrology 12/19/24 Chayo Valerio OD [address] [place] [id number] Optometry 12/19/24 Melvin Palma [address] [place] [address] Ophthalmology 01/01/25 documented as of this encounter
--- OUTSIDE RECORDS SUMMARY | 2025-01-03 16:40 | XMS_ITS | Encounter Summary ---
Author Organization [employer] Address [address] [facility] [address] [place] [address] Care Team Providers Care Fabrication Machine Operator Name Role Phone Winifred Herrera MD Primary Care Provider [phone] Kyleigh Hyman PharmD Unavailable Maged Ricardo MD Unavailable [phone] Chayo Valerio OD Unavailable Encounter Details Date Type Department Care Team (Late st Contact Info) Description 12/19/2024 Orders Only [facility] MEDICINE [address] [place] [address] Winifred Herrera MD [address] [place], [place] [phone] Social History Tobacco Use Types Packs/Day Years [...] Description 02/02/2025 1:00 PM EDT Medication Management [facility] MEDICINE [address] [place] [address] Kyleigh Hyman, PharmD [address] [place] [address] documented as of this encounter Goals Goal Patient Goal Type Associated Problems Recent Progress Patient-Stated? Author Blood Pressure < 140/90 Blood Pressure 130/70(2024 10:32 AM EDT) No Piers-Gambl e, Kyleigh, PharmD Hemoglobin A1c < 7 Result Component 8.2( 10:11 AM EDT) No Piers-Gambl e, Kyleigh, PharmD documented as of this encounter Visit Diagnoses Not on filedocumented in this encounter Additional Health Concerns Assessment Noted Time PHQ-9 Depression Total Score: 0 06/28/20 24 3:55 PM EDT documented as of this encounter Care Teams Fabrication Machine Operator Relationship Specialty Start Date End Date Winifred Herrera MD [address] [place] [address] PCP - General Family Medicine 10/18/18 RandysKyleigh Alvarenga, PharmD [address] [place] [address] Pharmacist Internal Medicine 02/15/23 Maged Ricardo MD [address] [facility] [address] [place] [address] Nephrology 12/19/24 Chayo Valerio OD [address] [place] [id number] Optometry 12/19/24 documented as of this encounter
--- OUTSIDE RECORDS SUMMARY | 2025-01-03 16:40 | XMS_ITS | Encounter Summary ---
Author Organization [employer] Address [address] [facility] [address] [place] [address] Care Team Providers Care Poultry Farmworker Name Role Phone SharonWinifred ni MD Primary Care Provider +- [phone] Kyleigh Hyman PharmD Unavailable Maged Ricardo MD Unavailable [phone] Teodoro Chayo OD Unavailable [phone] Encounter Details Date Type Department Care Team (Latest Contact Info) Description 12/27/2024 Travel Social History Tobacco Use Types Packs/Day Years [...] Description 02/02/2025 1:00 PM EDT Medication Management [facility] [address] [place] [address] [phone] Kyleigh Hyman, PharmD [address] [place] [phone] documented as of this encounter Goals Goal Patient Goal Type Associated Problems Recent Progress Patient-Stated? Author Blood Pressure < 140/90 Blood Pressure 130/70(2024 10:32 AM EDT) No Randys-Darlin Masonsa, PharmD Hemoglobin A1c < 7 Result Component 8.2( 10:11 AM EDT) No Randys-Kyleigh Mason, PharmD documented as of this encounter Visit Diagnoses Not on filedocumented in this encounter Additional Health Concerns Assessment Noted Time PHQ-9 Depression Total Score: 0 06/28/20 24 3:55 PM EDT documented as of this encounter Care Teams Poultry Farmworker Relationship Specialty Start Date End Date Winifred Herrera MD [address] [place] [address] [phone] PCP - General Family Medicine 10/18/18 Kyleigh Hyman, PharmD [address] [place] [phone] Pharmacist Internal Medicine 02/15/23 Maged Ricardo MD [address] [place] [address] Nephrology 12/19/24 Chayo Valerio OD [address] [place] [phone] Optometry 12/19/24 documented as of this encounter
--- OUTSIDE RECORDS SUMMARY | 2025-01-03 16:40 | XMS_ITS | Encounter Summary ---
Author Organization [employer] Address 75 [facility] 7t [place] [address] Care Team Providers Care Equipment Service Technician Name Role Phone Winifred Herrera MD Primary Care Provider [phone] Kyleigh Hyman PharmD Unavailable [phone]- [phone] Reason for Visit * Reason Comments Pre-visit Planning Pre-visit planning - LVM Encounter Details Date Type Department Care Team ([facility] st Contact Info) Description 12/15/2024 Patient Outreach [facility] [address] [place], [place] [phone] Winifred Herrera MD [address] [place], [place] [phone] Pre-visit Planning (Pre-visit planning - LVM ) Social History Tobacco Use Types Packs/Day Years Used Date Smoking Tobacco: Never Passive Smoke Exposure: Never Smokeless Tobacco: Never Depression Answer Date Recorded Patient Health Questionnaire-9 Score 0 06/28/2024 Patient Health Questionnaire-9 Score 0 06/28/2024 Last PHQ-9: Questionnaire Data Not on file 0 06/28/2024 Housing Stability Answer Date Recorded What is your housing situation today? I have marc mehta 06/28/[address] you [...] AM EDT documented as of this encounter Progress Notes * Renuka Moran - 12/15/2024 11:44 AM EST CUONG Ordaz placed outbound call to patient to complete pre-visit planning. No answer at this time. Patient name and were not confirmed. CC left voicemail requesting return call. Direct contact information provided. documented in this encounter Plan of Treatment Upcoming Encounters Date Type Department Care Team (Late st Contact Info) Description 02/02/2025 1:00 PM EDT Medication Management [facility] [address] [place] [address] Kyleigh yHman, PharmD [address] [place] [address] documented as of this encounter Goals Goal Patient Goal Type Associated Problems Recent Progress Patient-Stated? Author Blood Pressure < 140/90 Blood Pressure 130/70(2024 10:32 AM EDT) No Randys-Gambl e, Kyleigh, PharmD Hemoglobin A1c < 7 Result Component 8.2( 10:11 AM EDT) No RandysNellyl Kyleigh john, PharmD documented as of this encounter Visit Diagnoses Not on filedocumented in this encounter Additional Health Concerns Assessment Noted Time PHQ-9 Depression Total Score: 0 06/28/20 24 3:55 PM EDT documented as of this encounter Care Teams Equipment Service Technician Relationship Specialty Start Date End Date Winifred Herrera MD [address] [place] [address] PCP - General Family Medicine 10/18/18 Kyleigh Hyman, Fredy [address] [place] [address] Pharmacist Internal Medicine 02/15/23 documented as of this encounter
--- OUTSIDE RECORDS SUMMARY | 2025-01-03 16:40 | XMS_ITS | Encounter Summary ---
Author Organization [employer] Address 75 [facility] 7t [place] [address] Care Team Providers Care Counter Checker Name Role Phone Winifred Herrera MD Primary Care Provider Kyleigh Hyman PharmD Unavailable Maged Ricardo MD Unavailable Teodoro Chayo OD Unavailable Reason for Referral * Imaging (Routine) - Authorized Specialty Diagnoses / Procedures Referred By Contac t Referred To Contact Cardiology Diagnoses Decreased cardiac ejection fraction Procedures Transthoracic Echo (TTE) Complete Winifred Herrera MD [address] [place] [address] Phone: tel: fax: [address] Phone: tel: fax: Referral ID Status Reason Start Date Expiration Date Visits Requested Visits Authorized [id number] Authorized Perform Procedure 12/27/2024 12/27/2025 1 1 Reason for Visit * Reason Comments follow up A1c Encounter Details Date Type Department Care Team (Late st Contact Info) Description 12/27/2024 10:15 AM EDT Office Visit [facility] [address] [place], [place] [phone] Winifred Herrera MD [address] [place], [place] [phone] Other specified health status (Primary Dx); Type 2 diabetes mellitus with stage 3 chronic kidney disease, with long-term current use of insulin, unspecified whether stage 3a or 3b CKD (CMS/HCC); Primary hypertension; Recurrent major depressive episodes, moderate (CMS/HCC); Class 2 severe obesity due to excess calories with serious comorbidity and body mass index (BMI) of 38.0 to 38.9 in adult (CMS/HCC); Exercise counseling; Dietary counseling; Stage 3b chronic kidney disease (CMS/HCC); Encounter for immunization; Decreased cardiac ejection fraction Social History Tobacco Use Types Packs/Day Years [...] the past 12 months, has t he [employer], gas, oil or water [employer] threatened to shut off services in your [...] AM EDT documented as of this encounter Last Filed Vital Signs Vital Sign Reading Time Taken Comments Blood Pressure 130/70 12/27/2024 10:32 AM EDT Pulse 97 12/27/2024 10:07 AM EDT Temperature 36.2 ??C (97.1 ??F) 12/27/2024 10:07 AM E DT Respiratory Rate 20 12/27/2024 10:07 AM EDT Oxygen Saturation 98% 12/27/2024 10:07 AM EDT Inhaled Oxygen Concentration - - Weight 111 kg (245 lb) 12/27/2024 10:07 AM EDT Height 168.3 cm (5' 6.25 ) 12/27/2024 10:07 AM E DT Body Mass Index 39.25 12/27/2024 10:07 AM EDT documented in this encounter Progress Notes * Winifred Herrera MD - 12/27/2024 10:15 AM EDT Josefina Soliman is a 69 y.o. male with past medical history of hypertension, type 2 diabetes, Left bundle branch block, and CKD who presents to the office today for chronic medical conditions and comprehensive annual evaluation. No concerns today. Doing well. Denies suicidial or homacidial ideation. Date of Surgery: 02/16/2025 Surgical procedure being done: Cataract Surgery Type of anesthesia: MAC Lab needed: No EKG: No Surgeon's name: Dr. Melvin Palma MD Facility name: [facility] Surgeon's office number: [phone] Surgeon's office fax number: [phone] Contact name (person you spoke with): Rocio Last office note from surgeon requested: No Social History Tobacco: denied Drugs: none Alcohol: No Sexuality: Denies current sexual activity Suicide/Depression: The patient denies any present symptoms of depression or anxiety. Review of Systems Current Outpatient Medications: Alcohol Swabs (Alcohol Prep) 70 % pads, USE DIRECTED FIVE TIMES DAILY, Disp: 100 each, Rfl: 11 amLODIPine (Norvasc) 5 MG tablet, Take 1 tablet (5 mg) by mouth Once per day. Dose decreased 06/28/24, Disp: 30 tablet, Rfl: 11 atorvastatin (Lipitor) 40 MG tablet, TAKE 1 TABLET BY MOUTH AT BEDTIME, Disp: 90 tablet, Rfl: 3 Continuous Glucose Body And Fender Mechanic (FreeStyle Russell 3 Artemus) device, 1 each Once per day. Use as directedfor CGM, Disp: 1 each, Rfl: 0 Continuous Glucose Sensor (FreeStyle Russell 3 Plus Sensor) misc, Apply 1 every 15 days as directed for CGM, Disp: 2 each, Rfl: 11 D3 Super Strength 50 MCG (2000 UT) capsule, TAKE 1 CAPSULE BY MOUTH EVERY MORNING, Disp: 90 capsule, Rfl: 3 Diclofenac Sodium 1 % gel, APPLY TOPICALLY TO THE AFFECTED AREA(S) ONCE OR TWICE DAILY NEEDED FOR PAIN, Disp: 100 g, Rfl: 3 Dulaglutide (Trulicity) 1.5 MG/0.5ML solution auto-injector, Inject 1.5 mg under the skin 1 (one) time per week., Disp: 2 mL, Rfl: 3 empagliflozin (Jardiance) 25 MG, TAKE 1 TABLET BY MOUTH EVERY MORNING, Disp: 90 tablet, Rfl: 3 fluticasone (Flonase) 50 MCG/ACT nasal spray, USE 1-2 SPRAYS IN EACH NOSTRIL ONCE DAILY NEEDED, Disp: 16 g, Rfl: 11 glucose 4 g chewable tablet, Chew 4 tablets (16 g) if needed for low blood sugar., Disp: 50 tablet,Rfl: 11 glucose blood (FreeStyle Precision Jese Test) test strip, Use to test blood sugar 3 times daily in case of CGM failure or extremes of BG, Disp: 100 each, Rfl: 11 insulin glargine (Lantus SoloStar) 100 UNIT/ML pen, Inject 38 units subcutaneously once daily increased 06/28/24, Disp: 15 mL, Rfl: 3 insulin lispro (HumaLOG) 100 UNIT/ML injection, Inject subcutaneously twice daily 14 units before lunch and 16 units before dinner. Do not use if skipping meal., Disp: 15 mL, Rfl: 3 Lancets (OneTouch Delica Plus Ulwhfy89P) misc, TEST BLOOD SUGAR 3 OR 4 TIMES PER DAY, Disp: 100 each, Rfl: 11 lisinopril 40 MG tablet, TAKE 1 TABLET BY MOUTH EVERY MORNING, Disp: 90 tablet, Rfl: 3 PARoxetine (Paxil) 10 MG tablet, TAKE 1 TABLET BY MOUTH EVERY MORNING, Disp: 30 tablet, Rfl: 11 Pentips 32G X 4 MM misc, USE DIRECTED WITH LANTUS AND HUMALOG, Disp: 100 each, Rfl: 11 No Known Allergies Past Medical History: Diagnosis Date Diabetes mellitus ([facility]) Gastroesophageal reflux disease 06/27/2012 History of small bowel obstruction HLD (hyperlipidemia) Hypertension Hypertensive disorder 06/27/2012 -BP at goal -continue lisinopril 40 mg qd -decrease amlodipine to 5 mg qd. - Importance of low-sodium diet and regular moderate physical activity discussed. Hypertensive heart disease without heart failure 12/26/2020 LBBB (left bundle branch block) Left bundle branch block 10/16/2022 Noted incidentally during EKG. Not present in 2017 EKG. Pt is asymptomatic. Is now followed by cardiology -Echocardiogram had an EF 45-50% Obstructive sleep apnea of adult 12/16/2021 Distant Hx of Dx of TARA but has never tolerated C-PAP. Sleep medicine recommended sleep study 04/14/2023. TARA (obstructive sleep apnea) Recurrent major depressive episodes, moderate ([facility]) 10/16/2022 Stage 3a chronic kidney disease (CKD) ([facility]) Stage 3b chronic kidney disease ([facility]) 12/26/2020 Increasing Cr in setting of diabetes and HTN. His Cr was stable at 1.4 with EGFR of 50 on 01/05/2020. Highest Cr was 1.7 in 06/2019 Cr bumped to 2.19 12/15/2021 eGFR 30mL/min [place]/Cr ration 174 mcg/mg Cr 12/15/2021 (improved from 386mcg/mg Cr 2020 Seen by nephrology 04/05/2023. -continue linopril 40mg daily -congntinue jardiance 10mg daily -Avoid nephrotoxic agents including NSAIDS. -improve BS Type 2 diabetes mellitus with diabetic chronic kidney disease ([facility]) 10/18/2003 Re-enrolled in [facility] 07/14/24 Lab Results Component Value Date HGBA1C 8.4 (H) 07/26/2024 HGBA1C 10.0 (A) 06/28/2024 HGBA1C 9.2 (A) 02/22/2024 Lab Results Component Value Date MICROALBUR 624.0 07/26/2024 CREATININE 1.46 (H) 07/26/2024 -Clem/Arb: lisinopril 40mg -Statin the Past Surgical History: Procedure Laterality Date APPENDECTOMY Family History Problem Relation Name Age of Onset Diabetes Father's Brother Objective Visit Vitals BP 130/70 Pulse 97 Temp 97.1 ??F (36.2 ??C) (Temporal) Resp 20 Ht 5' 6.25 (1.683 m) Wt 245 lb (111 kg) SpO2 98% BMI 39.25 kg/m?? Smoking Status Never BSA 2.28 m?? Physical Exam Constitutional: Appearance: Normal appearance. HENT: Right Ear: Tympanic membrane normal. Left Ear: Tympanic membrane normal. Nose: Nose normal. Mouth/Throat: Pharynx: Oropharynx is clear. Comments: dentures Eyes: Extraocular Movements: Extraocular movements intact. Pupils: Pupils are equal, round, and reactive to light. Cardiovascular: Rate and Rhythm: Normal rate and regular rhythm. Pulses: Dorsalis pedis pulses are 2+ on the right side and 2+ on the left side. Heart sounds: Normal heart sounds. Pulmonary: Effort: Pulmonary effort is normal. Breath sounds: Normal breath sounds. No wheezing. Abdominal: General: Abdomen is flat. Palpations: Abdomen is soft. Tenderness: There is no abdominal tenderness. Musculoskeletal: General: Normal range of motion. Right foot: No deformity or Charcot foot. Left foot: No deformity or Charcot foot. Feet: Right foot: Protective Sensation: 5 sites tested. 5 sites sensed. Skin integrity: Skin integrity normal. Toenail Condition: Right toenails are normal. Left foot: Protective Sensation: 5 sites tested. 5 sites sensed. Skin integrity: Skin integrity normal. Toenail Condition: Left toenails are normal. Skin: General: Skin is warm and dry. Neurological: General: No focal deficit present. Mental Status: He is alert. Psychiatric: Mood and Affect: Mood normal. Behavior: Behavior normal. 69 y.o. male annual evaluation. Problem List Items Addressed This Visit Other specified health status - Primary Type 2 diabetes mellitus with diabetic chronic kidney disease (CMS/HCC) Re-enrolled in [facility] 07/14/24 Lab Results Component Value Date HGBA1C 8.2 (A) 12/27/2024 HGBA1C 8.0 (A) 12/15/2024 HGBA1C 8.4 (H) 07/26/2024 Lab Results Component Value Date MICROALBUR 624.0 07/26/2024 CREATININE 1.46 (H) 07/26/2024 -Clem/Arb: lisinopril 40mg -Statin therapy: atorvastatin 40mg -Diabetic eye exam: Seen by [facility] eye care last done 12/2021. Referral done 04/14/2023. -Diabetic foot exam: Done12/27/24 -Continue lifestyle modifications -metformin discontinued due to CKD in past -Lantus and Humalog titrated by CDTM Relevant Orders POCT glucose manually resulted (Completed) POCT glycosylated hemoglobin (Hgb A1c) (Completed) Hypertensive disorder -BP at goal -continue lisinopril 40 mg qd -decrease amlodipine to 5 mg qd. -Importance of low-sodium diet and regular moderate physical activity discussed. Recurrent major depressive episodes, moderate ([facility]) Denies suicidial or homacidial ideation. Therapist and psychiatrist offered. Stage 3b chronic kidney disease ([facility]) Lab Results Component Value Date CREATININE 1.46 (H) 07/26/2024 EGFR 48 07/26/2024 MICROALBCREU 528.1 (H) 07/26/2024 LDLCHOLCAL 42 07/26/2024 Increasing Cr in setting of diabetes and HTN. His Cr was stable at 1.4 with EGFR of 50 on 01/05/2020. Highest Cr was 1.7 in 06/2019 Cr bumped to 2.19 12/15/2021 eGFR 30mL/min [place]/Cr ration 174 mcg/mg Cr 12/15/2021 (improved from 386mcg/mg Cr 2020 Most recently: Seen Nephrology 07/10/24. -get repeat labs today to track K and renal func;; avoid NSAIDs, track renal func and Uprot; check PTH/vit D Other Visit Diagnoses Class 2 severe obesity due to excess calories with serious comorbidity and body mass index (BMI) of38.0 to 38.9 in adult ([facility]) Exercise counseling Dietary counseling Encounter for immunization Relevant Orders COVID-19 VACCINE (Pfizer) 4885-7440 12 yrs + (Completed) Decreased cardiac ejection fraction Relevant Orders Transthoracic Echo (TTE) Complete Annual Evaluation -Normal growth and development. -Anticipatory guidance discussed. -Preventative care / harm reduction discussed. Follow up in about 2 months (around 02/26/2025) for preop for eye surgery sheduled for march. Triston, Liss Marie, am serving as a scribe to document services personally performed by Dr. Massey, based on the patient's response to questions by provider and providers statements to me. documented in this encounter Miscellaneous Notes * Assessment & Plan Note - Winifred Herrera MD - 12/27/2024 1:20 PM EDT Associated Problem(s): Recurrent major depressive episodes, moderate (CMS/HCC) Denies suicidial or homacidial ideation. Therapist and psychiatrist offered. * Assessment & Plan Note - Winifred Herrera MD - 12/27/2024 1:19 PM EDT Associated Problem(s): Type 2 diabetes mellitus with diabetic chronic kidney disease (CMS/HCC) Re-enrolled in [facility] 07/14/24 Lab Results Component Value Date HGBA1C 8.2 (A) 12/27/2024 HGBA1C 8.0 (A) 12/15/2024 HGBA1C 8.4 (H) 07/26/2024 Lab Results Component Value Date MICROALBUR 624.0 07/26/2024 CREATININE 1.46 (H) 07/26/2024 -Clem/Arb: lisinopril 40mg -Statin therapy: atorvastatin 40mg -Diabetic eye exam: Seen by [facility] eye care last done 12/2021. Referral done 04/14/2023. -Diabetic foot exam: Done12/27/24 -Continue lifestyle modifications -metformin discontinued due to CKD in past -Lantus and Humalog titrated by CD * Assessment & Plan Note - Winifred Herrera MD - 12/27/2024 1:18 PM EDT Associated Problem(s): Stage 3b chronic kidney disease (CMS/HCC) Lab Results Component Value Date CREATININE 1.46 (H) 07/26/2024 EGFR 48 07/26/2024 MICROALBCREU 528.1 (H) 07/26/2024 LDLCHOLCAL 42 07/26/2024 Increasing Cr in setting of diabetes and HTN. His Cr was stable at 1.4 with EGFR of 50 on 01/05/2020. Highest Cr was 1.7 in 06/2019 Cr bumped to 2.19 12/15/2021 eGFR 30mL/min [place]/Cr ration 174 mcg/mg Cr 12/15/2021 (improved from 386mcg/mg Cr 2020 Most recently: Seen Nephrology 07/10/24. -get repeat labs today to track K and renal func;; avoid NSAIDs, track renal func and Uprot; check PTH/vit D * Assessment & Plan Note - Winifred Herrera MD - 12/27/2024 1:18 PM EDT Associated Problem(s): Hypertensive disorder -BP at goal -continue lisinopril 40 mg qd -decrease amlodipine to 5 mg qd. -Importance of low-sodium diet and regular moderate physical activity discussed. documented in this encounter Plan of Treatment Upcoming Encounters Date Type Department Care Team (Late st Contact Info) Description 02/02/2025 1:00 PM EDT Medication Management [facility] [address] [place] [address] Kyleigh Hyman PharmD [address] [place] [address] Scheduled Orders Name Type Priority Associated Diagnoses Order Schedule Transthoracic Echo (TTE) Complete Echocardiography Routine Decreased cardiac ejection fraction Expected: 12/27/2024 (Approximate), Expires: 12/27/2026 documented as of this encounter Goals Goal Patient Goal Type Associated Problems Recent Progress Patient-Stated? Author Blood Pressure < 140/90 Blood Pressure 130/70(2024 10:32 AM EDT) No Kyleigh Ramos, PharmD Hemoglobin A1c < 7 Result Component 8.2( 10:11 AM EDT) No Kyleigh Ramos PharmD documented as of this encounter Procedures Procedure Name Priority Date/Time Associated Diagnosis Comments POCT GLUCOSE Routine 12/27/2024 10:12 AM EDT Type 2 diabetes mellitus with stage 3 chronic kidney disease, with long-term current use of insulin, unspecified whether stage 3a or 3b CKD ([facility]) POCT GLYCOSYLATED HEMOGLOBIN (HGB A1C) Routine 12/27/2024 10:11 AM EDT Type 2 diabetes mellitus with stage 3 chronic kidney disease, with long-term current use of insulin, unspecified whether stage 3a or 3b CKD ([facility]) documented in this encounter Results * POCT glucose manually resulted (12/27/2024 10:12 AM EDT) Glucose Blood, POC 175 60 - 200 mg/dL QC Media Lot # [id number] Lot# Expiration Date 826,225 Blood Capillary blood specimen / Unknown 12/27/2024 10:12 AM EDT Winifred Herrera MD POINT OF CARE TEST ENTER/E DIT ORDERABLES Final Result * (ABNORMAL) POCT glycosylated hemoglobin (Hgb A1c) (12/27/2024 10:11 AM EDT) Hemoglobin A1C 8.2(A) 4.0 - 6.0 % QC Media Lot # [id number] Lot# Expiration Date ,210 Blood Capillary blood specimen / Unknown 12/27/2024 10:11 AM EDT us Winifred Herrera MD POINT OF CARE TEST ENTER/E DIT ORDERABLES Final Result documented in this encounter Visit Diagnoses Diagnosis Other specified health status- Primary Type 2 diabetes mellitus with stage 3 chronic kidney disease, with long-term current use of insulin, unspecified whether stage 3a or 3b CKD ([facility]/HCC) Primary hypertension Unspecified essential hypertension Recurrent major depressive episodes, moderate ([facility]) Major depressive disorder, recurrent episode, moderate Class 2 severe obesity due to excess calories with serious comorbidity and body mass index (BMI) of 38.0 to 38.9 in adult ([facility]) Exercise counseling Dietary counseling Dietary surveillance and counseling Stage 3b chronic kidney disease ([facility]) Encounter for immunization Decreased cardiac ejection fraction documented in this encounter Additional Health Concerns Assessment Noted Time PHQ-9 Depression Total Score: 0 06/28/20 24 3:55 PM EDT documented as of this encounter Care Teams Counter Checker Relationship Specialty Start Date End Date Winifred Herrera MD [address] [place] [address] PCP - General Family Medicine 10/18/18 Kyleigh Hyman, BradenD [address] [place] [address] Pharmacist Internal Medicine 02/15/23 Maged Ricardo MD [address] [facility] [address] [place] [phone] Nephrology 12/19/24 Chayo Valerio OD [address] [place] [address] [id number] Optometry 12/19/24 documented as of this encounter
--- OUTSIDE RECORDS SUMMARY | 2025-01-03 16:40 | XMS_ITS | Encounter Summary ---
Author Organization [employer] Address [address] [facility] 7t [place] [address] Care Team Providers Care Intelligence Applications Name Role Phone Winifred Herrera MD Primary Care Provider + [phone] Kyleigh Hyman PharmD Unavailable Maged Ricardo MD Unavailable [phone] Chayo Valerio OD Unavailable [phone] Melvin Palma Unavailable Reason for Visit * Reason Onset Date Comments Appointment Request 12/29/2024 Encounter Details Date Type Department Care Team (Late st Contact Info) Description 12/29/2024 Telephone [facility] [address] [place], [place] [phone] Winifred Herrera MD [address] [place], [place] [phone] Appointment Request Social History Tobacco Use Types Packs/Day Years [...] AM EDT documented as of this encounter Miscellaneous Notes * Telephone Encounter - Monie Qurioz - 01/01/2025 10:42 AM EDT Called Patient left vm no answer. Advised to call back to schedule pre op. * Telephone Encounter - Monie Quiroz - 12/29/2024 9:33 AM EDT Called Patient left vm, advised to call back and schedule Pre op. Patient needs pre op for upcomingsurgery in March. If Patient calls back please schedule. documented in this encounter Plan of Treatment Upcoming Encounters Date Type Department Care Team (Late st Contact Info) Description 02/02/2025 1:00 PM EDT Medication Management [facility] [address] [place], [place] [phone] Kyleigh Hyman, PharmD [address] [place] [address] documented as of this encounter Goals Goal Patient Goal Type Associated Problems Recent Progress Patient-Stated? Author Blood Pressure < 140/90 Blood Pressure 130/70(2024 10:32 AM EDT) No Kyleigh Ramos PharmD Hemoglobin A1c < 7 Result Component 8.2( 10:11 AM EDT) No Kyleigh Ramos PharmD documented as of this encounter Visit Diagnoses Not on filedocumented in this encounter Additional Health Concerns Assessment Noted Time PHQ-9 Depression Total Score: 0 06/28/20 24 3:55 PM EDT documented as of this encounter Care Teams Intelligence Applications Relationship Specialty Start Date End Date Winifred Herrera MD [address] [place] [address] PCP - General Family Medicine 10/18/18 Kyleigh Hyman PharmD [address] [place] [address] Pharmacist Internal Medicine 02/15/23 Maged Ricardo MD [address] [phone] Nephrology 12/19/24 Chayo Valerio OD [address] [place] [address] Optometry 12/19/24 Melvin Palma [address] [place] [address] Ophthalmology 01/01/25 documented as of this encounter
--- OUTSIDE RECORDS SUMMARY | 2025-01-03 16:40 | XMS_ITS | Encounter Summary ---
Author Organization [employer] Address [address] [facility] [address] 7[address] [place] [address] Care Team Providers Care Shellfish Processing Machine Tender Name Role Phone Sharon, Winifred ADAME Primary Care Provider +- [phone] Kyleigh Hyman PharmD Unavailable [phone] Encounter Details Date Type Department Care Team (Latest Contact Info) Description 12/15/2024 Travel Social History Tobacco Use Types Packs/Day [...] Description 02/02/2025 1:00 PM EDT Medication Management [facility] 230 [place] [address] RandysKyleigh Alvarenga, PharmD [address] [place] [address] documented as of this encounter Goals Goal Patient Goal Type Associated Problems Recent Progress Patient-Stated? Author Blood Pressure < 140/90 Blood Pressure 130/70(2024 10:32 AM EDT) No Randys-Darlin Masonsa, PharmD Hemoglobin A1c < 7 Result Component 8.2( 10:11 AM EDT) No Piers-Ronl e, Kyleigh, PharmD documented as of this encounter Visit Diagnoses Not on filedocumented in this encounter Additional Health Concerns Assessment Noted Time PHQ-9 Depression Total Score: 0 06/28/20 24 3:55 PM EDT documented as of this encounter Care Teams Shellfish Processing Machine Tender Relationship Specialty Start Date End Date Winifred Herrera MD [address] [place] [phone] PCP - General Family Medicine 10/18/18 RandysKyleigh Alvarenga, PharmD [address] [place] [address] Pharmacist Internal Medicine 02/15/23 documented as of this encounter
--- OUTSIDE RECORDS SUMMARY | 2025-01-03 16:40 | XMS_ITS | Encounter Summary ---
Author Organization [employer] Address [address] [facility] 7t [place] [address] Care Team Providers Care Loftsman Name Role Phone Winifred Herrera MD Primary Care Provider [phone] Kyleigh Hyman PharmD Unavailable [phone] Reason for Visit * Reason Onset Date Comments Med Refill 12/11/2024 Encounter Details Date Type Department Care Team (Late st Contact Info) Description 12/11/2024 Refill [facility] [address] [place], [place] [phone] Winifred Herrera MD [address] [place] [address] Type 2 diabetes mellitus with stage 3 chronic kidney disease, with long-term current use of insulin, unspecified whether stage 3a or 3b CKD (CMS/HCC) Social History Tobacco Use Types Packs/Day Years Used Date Smoking Tobacco: Never Passive Smoke Exposure: Never Smokeless Tobacco: Never Depression Answer Date Recorded Patient Health Questionnaire-9 Score 0 06/28/2024 Patient Health Questionnaire-9 Score 0 06/28/2024 Last PHQ-9: Questionnaire Data Not on file 0 06/28/2024 Housing Stability Answer Date Recorded What is your housing situation today? I have marc sing 06/28/[address] you li [...] Description 02/02/2025 1:00 PM EDT Medication Management [facility] 230 [place] [address] RandysKyleigh Alvarenga, PharmD [address] [place] [address] documented as of this encounter Goals Goal Patient Goal Type Associated Problems Recent Progress Patient-Stated? Author Blood Pressure < 140/90 Blood Pressure 130/70(2024 10:32 AM EDT) No Piers-Gambl alvaro, Kyleigh, PharmD Hemoglobin A1c < 7 Result Component 8.2( 10:11 AM EDT) No Piers-Gambl alvaro, Kyleigh, PharmD documented as of this encounter Visit Diagnoses Diagnosis Type 2 diabetes mellitus with stage 3 chronic kidney disease, with long-term current use of insulin, unspecified whether stage 3a or 3b CKD (CMS/HCC) documented in this encounter Additional Health Concerns Assessment Noted Time PHQ-9 Depression Total Score: 0 06/28/20 24 3:55 PM EDT documented as of this encounter Care Teams Loftsman Relationship Specialty Start Date End Date Winifred Herrera MD [address] [place] [address] PCP - General Family Medicine 10/18/18 Kyleigh Hyman, BradenD [address] [place] [address] Pharmacist Internal Medicine 02/15/23 documented as of this encounter
--- OUTSIDE RECORDS SUMMARY | 2025-01-03 16:40 | XMS_ITS | Encounter Summary ---
Author Organization [employer] Address [address] [facility] 7t [place] [address] Care Team Providers Care Manager Sql Name Role Phone Winifred Herrera MD Primary Care Provider [phone] Kyleigh Hyman PharmD Unavailable [phone] Maged Ricardo MD Unavailable Chayo Valerio OD Unavailable Reason for Visit * Reason Onset Date Comments pre-op 12/26/2024 chartprep 12/26/2024 Encounter Details Date Type Department Care Team (Late st Contact Info) Description 12/26/2024 Telephone [facility] [address] [place], [place] [phone] Winifred Herrera MD [address] [place], [place] [phone] pre-op; chartprep Social History Tobacco Use Types Packs/Day Years [...] encounter Miscellaneous Notes * Telephone Encounter - Renuka Rowe MA - 12/26/2024 1:27 PM EDT ..Chart Prep Labs: done Images: not applicable Vaccines due: Covid Due Referrals: Not Applicable Screenings: Not Applicable Overdue care gaps: A1C, Glucose, and Sbirt * Telephone Encounter - Lexx Edmonds - 12/26/2024 10:40 AM EDT Date of Surgery: 02/16/2025 Surgical procedure being done: Cataract Surgery Type of anesthesia: MAC Lab needed: No EKG: No Surgeon's name: Dr. Melvin Palma MD Facility name: [facility] Surgeon's office number: [phone] Surgeon's office fax number: [phone] Contact name (person you spoke with): Rocio Last office note from surgeon requested: No Send Message to Darlin Cherry and Jose Miranda documented in this encounter Plan of Treatment Upcoming Encounters Date Type Department Care Team (Late st Contact Info) Description 02/02/2025 1:00 PM EDT Medication Management [facility] [address] [place] [address] Kyleigh Hyman PharmD [address] [place] [address] documented as of this encounter Goals Goal [...] documented as of this encounter Care Teams Manager Sql Relationship Specialty Start Date End Date Winifred Herrera MD [address] [place] [address] PCP - General Family Medicine 10/18/18 Kyleigh Hyman PharmD [address] [place] [address] Pharmacist Internal Medicine 02/15/23 Maged Ricardo MD 100 [facility] 200 [place] [address] Nephrology 12/19/24 Chayo Valerio OD [address] [place] [address] Optometry 12/19/24 documented as of this encounter
--- OUTSIDE RECORDS SUMMARY | 2025-01-03 16:40 | XMS_ITS | Encounter Summary ---
Author Organization [employer] Address [address] [facility] 7t [place] [address] Care Team Providers Care Chief Investment Officer Name Role Phone Winifred Herrera MD Primary Care Provider [phone] Kyleigh Hyman PharmD Unavailable Maged Ricardo MD Unavailable TeodoroChayo julien OD Unavailable Reason for Visit * Reason Comments Med Refill Encounter Details Date Type Department Care Team (Late st Contact Info) Description 12/18/2024 Refill [facility] 230 [place], [place] [phone] Winifred Herrera MD 230 [place], [place] [phone] Type 2 diabetes mellitus with other diabetic kidney complication, with long-term current use of insulin ([facility]) Social History Tobacco Use Types Packs/Day Years [...] Description 02/02/2025 1:00 PM EDT Medication Management [facility] [address] [place] [phone] Kyleigh Hyman PharmD [address] [place] [address] documented as of this encounter Goals Goal Patient Goal Type Associated Problems Recent Progress Patient-Stated? Author Blood Pressure < 140/90 Blood Pressure 130/70(2024 10:32 AM EDT) No RandysKyleigh Link, PharmD Hemoglobin A1c < 7 Result Component 8.2( 10:11 AM EDT) No Kyleigh Ramos, PharmD documented as of this encounter Visit Diagnoses Diagnosis Type 2 diabetes mellitus with other diabetic kidney complication, with long-term current use of insulin ([facility]) documented in this encounter Additional Health Concerns Assessment Noted Time PHQ-9 Depression Total Score: 0 06/28/20 24 3:55 PM EDT documented as of this encounter Care Teams Chief Investment Officer Relationship Specialty Start Date End Date Winifred Herrera MD 230 [place] [address] PCP - General Family Medicine 10/18/18 Kyleigh Hyman PharmD 230 [place] [address] Pharmacist Internal Medicine 02/15/23 Maged Ricardo MD 100 [facility] 200 [place] [address] Nephrology 12/19/24 Chayo Valerio OD [address] [place] [phone] Optometry 12/19/24 documented as of this encounter
--- OUTSIDE RECORDS SUMMARY | 2025-01-03 16:40 | XMS_ITS | Encounter Summary ---
Author Organization [employer] Address [address] [facility] [address] 7[address] [place] [address] Care Team Providers Care Cane Pusher Name Role Phone SharonWinifred ni MD Primary Care Provider +- [phone] Kyleigh Hyman PharmD Unavailable Maged Ricardo MD Unavailable [phone] Teodoro Chayo OD Unavailable [phone] Encounter Details Date Type Department Care Team (Latest Contact Info) Description 12/22/2024 Travel Social History Tobacco Use Types Packs/Day [...] Description 02/02/2025 1:00 PM EDT Medication Management [facility] [address] [place] [phone] Kyleigh Hyman, PharmD [address] [place] [address] documented as of this encounter Goals Goal [...] documented as of this encounter Care Teams Cane Pusher Relationship Specialty Start Date End Date Winifred Herrera MD [address] [place] [phone] PCP - General Family Medicine 10/18/18 Kyleigh Hyman, PharmD [address] [place] [address] Pharmacist Internal Medicine 02/15/23 Maged Ricardo MD [address] [place] [address] Nephrology 12/19/24 Chayo Valerio OD [address] [place] [address] Optometry 12/19/24 documented as of this encounter
--- OUTSIDE RECORDS SUMMARY | 2025-01-03 16:40 | XMS_ITS | Clinical Summary ---
Author Organization [facility] Address [address] [facility] [address] [place] [address] Phone Care Team Providers Care Deputy Assessor Name Role Phone Winifred Herrera MD Primary Care Provider U navailable Allergies No known active allergies Medications atorvastatin (LIPITOR) 40 MG tablet Take 1 tablet by mouth 1 (one) time each day Active insulin aspart (NovoLOG FLEXPEN) 100 UNIT/ML injection Active insulin glargine (Lantus SoloStar) 100 UNIT/ML injection 38 Units Active lisinopril (PRINIVIL,ZESTR IL) 40 MG tablet Take 1 tablet by mouth 1 (one) time each day Active Acetaminophen Extra Strength 500 MG tablet Take 500 mg by mouth every 6 (six) hours if needed 12/17/2021 Active cholecalciferol (VITAMIN D-3) 50 MCG (1999 UT) capsule Take 2,000 Units by mouth 12/29/2021 Active Jardiance 10 MG tablet Take 1 tablet by mouth 12/31/2021 Active PARoxetine (PAXIL) 10 MG tablet Take 10 mg by mouth 12/17/2021 Active Insulin Lispro, 1 Unit Dial, 100 UNIT/ML solution pen-injector 10 units in the am and 14 units before dinner 02/12/2023 Active amLODIPine (NORVASC) 10 MG tablet TAKE 1 TABLET BY MOUTH EVERY EVENING 30 tablet 11 08/06/2023 Active Active Problems Problem Noted Date Diagnosed Date Stage 3b chronic kidney disease 01/03/2024 Stage 3b chronic kidney disease 08/16/2023 Type 2 diabetes mellitus wit h diabetic chronic kidney disease 08/16/2023 Patient encounter status 04/14/2023 023 Overview (08/16/2023): -next physical exam due after 07/28/2024 -eye care facilitated by [facility] next appointment in April 2023. -dental home is Last Assessment & Plan: -next physical exam due after 07/28/2024 -eye care facilitated by [facility] next appointment in April 2023. -dental home is Osteonecrosis 04/14/2023 08/16/2023 Overview (08/16/2023): Right wrist. Referred to orthopedics, pending date. Number given today 04/14/2023. Last Assessment & Plan: Right wrist. Referred to orthopedics, pending date. Number given today 04/14/2023. Dependent edema 03/02/2023 08/16/2023 Overview (08/16/2023): Encouraged to get labs today, if normal consider decreasing amlodipine. -Follow up CDTM as schdueled. Last Assessment & Plan: Encouraged to get labs today, if normal consider decreasing amlodipine. -Follow up CDTM as schdueled. Obstructive sleep apnea of adult 12/16/2021 08/16/2023 Overview (08/16/2023): Distant Hx of Dx of TARA but has never tolerated C-PAP. Sleep medicine recommended sleep study 04/14/2023. Last Assessment & Plan: Distant Hx of Dx of TARA but has never tolerated C-PAP. Sleep medicine recommended sleep study 04/14/2023. Chronic kidney disease stage 2 12/26/2020 Hypercalcemia 12/26/2020 Hypertensive disorder 12/26/2020 Hypertensive heart disease without heart failure 12/26/2020 Stage 3a chronic kidney disease 12/26/2020 08/16/2023 Overview (08/16/2023): Increasing Cr in setting of diabetes and HTN. His Cr was stable at 1.4 with EGFR of 50 on 01/05/2020. Highest Cr was 1.7 in 06/2019 Cr bumped to 2.19 12/15/2021 eGFR 30mL/min MA/Cr ration 174 mcg/mg Cr 12/15/2021 (improved from 386mcg/mg Cr 2020 Seen by nephrology 04/05/2023. -continue linopril 40mg daily -congntinue jardiance 10mg daily -Avoid nephrotoxic agents including NSAIDS. -improve BS and BP control Last Assessment & Plan: Increasing Cr in setting of diabetes and HTN. His Cr was stable at 1.4 with EGFR of 50 on 01/05/2020. Highest Cr was 1.7 in 06/2019 Cr bumped to 2.19 12/15/2021 eGFR 30mL/min MA/Cr ration 174 mcg/mg Cr 12/15/2021 (improved from 386mcg/mg Cr 2020 Seen by nephrology 04/05/2023. -continue linopril 40mg daily -congntinue jardiance 10mg daily -Avoid nephrotoxic agents including NSAIDS. -improve BS and BP control Type 2 diabetes mellitus 10/18/2003 Immunizations Name Administration Dates Next Due Hepatitis B 12/05/2014,09/03/2014,02/19/2014 Influenza Split 08/02/2013,06/27/2012 Influenza Split High Dose Pr eservative Free IM 10/26/2019 Influenza, Quadrivalent, Pre servative Free 08/29/2015 Influenza, Quadrivalent, Wit h Preservative 08/25/2018,10/01/2017,08/12/2016 Influenza, Unspecified 07/25/2021,2020,08/24/2014,07/01,07/16/2010,11/04/2006 Pfizer SARS-COV-2 04/14/2023 Pneumococcal Conjugate Pcv 20 03/08/2023 Pneumococcal Polysaccharide 09/03/2014, 7 Shingrix 06/09/2022,03/31/2022 Tdap 04/14/2023,06/27/2012,04/29/2007 Zoster 09/17/2014 Family History Relation Status Comments Father Unknown Mother Unknown Social History Tobacco Use Types Packs/Day Years Used Date Smoking Tobacco: Never Smokeless Tobacco: Never Tobacco Cessation:Counseling Given: Not Answered Sex and Gender Information Value Date Recorded Sex Assigned at Not on file Legal Sex Male 4:55 PM EST Gender Identity Not on file Sexual Orientation Not on file Last Filed Vital Signs Vital Sign Reading Time Taken Comments Blood Pressure 125/68 07/10/2024 2:06 PM EDT Pulse 74 07/10/2024 2:06 PM EDT Temperature - - Respiratory Rate - - Oxygen Saturation 98% 07/10/2024 2:06 PM EDT Inhaled Oxygen Concentration - - Weight 108 kg (237 lb 9.6 oz) 07/10/2024 2:06 PM EDT Height 167.6 cm (5' 6 ) 09/20/2020 12:00 PM EST Body Mass Index 38.35 09/20/2020 12:00 PM EST Plan of Treatment Upcoming Encounters Date Type Department Care Team (Late st Contact Info) Description 01/08/2025 2:15 PM EDT Office Visit [facility] [address] [place] [address] Maged Ricardo MD [address] [facility] [address] [place] [address] Health Maintenance Due Date Last Done Comments Colorectal Cancer Screening: Annual FOBT 2003 Colorectal Cancer Screening: Colonoscopy 2003 Colorectal Cancer Screening: Sigmoidoscopy 2003 Diabetes: Ophthalmology Exam 02/15/2023 Diabetes: Pedal Pulse Checked 02/15/2023 Diabetes: Sensory Foot Exam 02/15/2023 Diabetes: Visual Foot Exam 02/15/2023 Diabetes: Hemoglobin A1C 03/29/2025 025, 12/15/2024, 06/28/2024, Additional history exists Hepatitis B Vaccine Aged Out 12/05/2014, 09/03/2014, 02/19/2014 No longer eligible based on patient's age to complete this topic Pneumococcal Vaccine: 65+ Years Completed 03/08/2023, 09/03/2014, 11/04/2006 Influenza Vaccine Completed 06/28/2024, , 01/30/2021, Additional history exists Insurance [facility] Member Subscriber Plan / Payer ( fective 2021-Present) Name:Jourdan Macias Relation to Subscriber:Self Name:Macias Jourdan Payer ID:[id number] (NAIC) Group ID:Not on file Type:Not on file Address: [place] [id number] Care Teams Deputy Assessor Relationship Specialty Start Date End Date Cataño, Winifred Wilson MD PCP - General 10/28/20
--- OUTSIDE RECORDS SUMMARY | 2025-01-03 16:41 | XMS_ITS | Encounter Summary ---
Author Organization [employer] Address [address] [facility] 7t [place] [address] Care Team Providers Care Build Automation Engineer Name Role Phone Sharon, Winifred ADAME Primary Care Provider [phone] Kyleigh Hyman PharmD Unavailable [phone] Maged Ricardo MD Unavailable [phone] Teodoro, Chayo OD Unavailable [phone] Melvin Palma Unavailable Encounter Details Date Type Department Care Team (Late st Contact Info) Description 03/08/2023 Orders Only [facility] 230 [place], [place] [phone] Temitope Lo MD [address] [place], [place] [phone] Social History Tobacco Use Types Packs/Day Years Used Date Smoking Tobacco: Never Passive Smoke Exposure: Never Smokeless Tobacco: Never Depression Answer Date Recorded Patient Health Questionnaire-9 Score 0 02/10/2023 Depression Answer Date Recorded Patient Health Questionnaire-2 Score 0 02/10/2023 Sex and Gender Information Value Date Recorded Sex Assigned at Male 08/17/2022 10:15 AM EDT Legal Sex Male 10:15 AM EDT Gender Identity Male 08/17/2022 10:15 AM EDT Sexual Orientation Straight 08/17/2022 10 :15 AM EDT COVID-19 Exposure Response Date Recorded In the last 10 days, have yo u been in contact with someone who was confirmed or suspected to have Coronavirus/COVID-19? No / Unsure 03/08/2023 12:43 PM EDT documented as of this encounter Miscellaneous Notes * Result Encounter Note - Ruth Bland MD - 03/08/2023 5:00 PM EDT Referred to Ortho * Result Encounter Note - Ruth Bland MD - 03/08/2023 5:00 PM EDT Plantar spur seen documented in this encounter Plan of Treatment Upcoming Encounters Date Type Department Care Team (Late st Contact Info) Description 02/02/2025 1:00 PM EDT Medication Management [facility] 230 [place] [address] Kyleigh Hyman PharmD 230 [place] [address] documented as of this encounter Goals Goal Patient Goal Type Associated Problems Recent Progress Patient-Stated? Author Blood Pressure < 140/90 Blood Pressure 130/70(2024 10:32 AM EDT) No Kyleigh Ramos, PharmD Hemoglobin A1c < 7 Result Component 8.2( 10:11 AM EDT) No Kyleigh Ramos PharmD documented as of this encounter Procedures Procedure Name Priority Date/Time Associated Diagnosis Comments XR WRIST RT W SCAPHOID Routine 03/31/2023 3:44 PM EDT XR ANKLE 3+ VIEWS LEFT Routine 03/31/2023 3:44 PM EDT documented in this encounter Results * XR WRIST RT W SCAPHOID (03/31/2023 3:44 PM EDT) Anatomical Region Laterality Modality Abdomen Radiographic Tati ging 03/31/2023 3:44 PM EDT Narrative 03/31/2023 4:58 PM EDT ?[facility] [facility] ?[address] ?[place] [address] ?XRay Report ? Signed ? Patient: Macias,Jourdan ?MR#: [id number] ? : 1955 ?Acct:[id number] ? Age/Sex: 67 / M ?ADM Date: 03/31/23 ? Loc: HO.HHCX ? Attending Dr: Ruth Bland MD ? Ordering Physician: Ruth Bland MD ?? Date of Service: 03/31/23 ?? Procedure(s): XR wrist RT w scaphoid ?? Accession Number(s): [id number] ? cc: Ruth Bland MD ? EXAMINATION: ?? XR WRIST, RIGHT ? CLINICAL INFORMATION: ?? Persistent pain and swelling right wrist. ? COMPARISON: ?? None ? TECHNIQUE: ?? Right wrist is imaged in 4 views. ? FINDINGS: ?? The carpal lunate appears deformed, mildly flattened and slightly ?? rotated. There is subtle increased mineralization. The findings are ?? suspicious for lunate osteonecrosis (Kienbock disease). ? The ulnar variance is neutral. There is no acute fracture or ?? dislocation. Some mild narrowing is present at the triscaphe joint. ?? There is extensive atherosclerotic calcification of the vasculature. ? XR/XR wrist RT w scaphoid ?? IMPRESSION: ?? 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 ?? - Mild narrowing triscaphe joint. ?? - Extensive atherosclerotic calcification vasculature. ?? - No acute fracture or dislocation. ? Dictated By: ?Stepan Doyle MD ? Signed By: ?<Electronically signed by Stepan Doyle MD in OV> ?03/31/23 1655 ? DD/ 1544 ? TD/TT: ? Tree Topper: VILLEGAS ? Procedure Note Tawnya, Image - 04/14/[address] [address] XRay Report Signed Patient: Comfort Macias#: [id number] : 4Acct:[id number] Age/Sex: 67 / MADM Date: 03/31/23 Loc: HO.HHCX Attending Dr: Ruth Bland MD Ordering Physician: Ruth Bland MD Date of Service: 03/31/23 Procedure(s): XR wrist RT w scaphoid Accession Number(s): [id number] cc: Ruth Bland MD EXAMINATION: XR WRIST, RIGHT CLINICAL INFORMATION: Persistent pain and swelling right wrist. COMPARISON: None TECHNIQUE: Right wrist is imaged in 4 views. FINDINGS: The carpal lunate appears deformed, mildly flattened and slightly rotated. There is subtle increased mineralization. The findings are suspicious for lunate osteonecrosis (Kienbock disease). The ulnar variance is neutral. There is no acute fracture or dislocation. Some mild narrowing is present at the triscaphe joint. There is extensive atherosclerotic calcification of the vasculature. 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 - Mild narrowing triscaphe joint. - Extensive atherosclerotic calcification vasculature. - No acute fracture or dislocation. Dictated By: Stepan Doyle MD Signed By: <Electronically signed by Stepan Doyle MD in OV> 03/31/23 1655 DD/ 1544 TD/TT: Tree Topper: VILLEGAS [facility] External Provider IMG XR PROCEDURES Final Result * XR Ankle 3+ Views Left (03/31/2023 3:44 PM EDT) Anatomical Region Laterality Modality Lower Extremities, Ankle Left Radiogr aphic Imaging 03/31/2023 3:44 PM EDT Narrative 03/31/2023 4:51 PM EDT ?[facility] ?[address] ?[place] [address] ?XRay Report ? Signed ? Patient: Colleen,Jourdan ?MR#: [id number] ? : 1955 ?Acct:[id number] ? Age/Sex: 67 / M ?ADM Date: 06/14/23 ? Loc: HO.HHCX ? Attending Dr: Ruth Bland MD ? Ordering Physician: Ruth Bland MD ?? Date of Service: 03/31/23 ?? Procedure(s): XR ankle LT min 3V ?? Accession Number(s): [id number] ? cc: Ruth Bland MD ? EXAMINATION: ?? XR ANKLE, LEFT ? CLINICAL INFORMATION: ?? Persistent pain and swelling left ankle. ? COMPARISON: ?? None available. ? TECHNIQUE: ?? Left ankle is imaged in 3 views. ? FINDINGS: ?? There is no acute or healing fracture, dislocation, or destructive ?? process. There is mild soft tissue swelling just distal to the ?? malleoli, greater on the medial side. The ankle mortise is symmetric. ?? The talar dome shows no osteochondral lesion. ? There is benign ossification along the distal lateral tibia in the ?? intraosseous region. Minor spurring is present at the distal malleoli. ?? There is moderate plantar calcaneal spur and borderline posterior ?? calcaneal spur. The retrocalcaneal recess is preserved. ? The subtalar joint is not well visualized presumably related to ?? positioning. No visible coalition on plain film. ? There are extensive atherosclerotic calcifications of the vasculature. ? XR/XR ankle LT min 3V ?? IMPRESSION: ?? -Mild soft tissue swelling, greater on medial side. ?? -No fracture, dislocation, or destructive process. ?? -Moderate plantar calcaneal spur. ?? -Subtalar joint not well visualized presumably related to positioning. ?? No visible coalition on plain film. ? Dictated By: ?Stepan Doyle MD ? Signed By: ?<Electronically signed by Stepan Doyle MD in OV> ?03/31/23 1649 ? DD/ 1544 ? TD/TT: ? Tree Topper: VILLEGAS ? Procedure Note Tawnya, Image - 04/14/2023 [facility] [address] [place] [address] XRay Report Signed Patient: Comfort Macias#: [id number] : 4Acct:[id number] Age/Sex: 67 / MADM Date: 03/31/23 Loc: HO.HHCX Attending Dr: Ruth Bland MD Ordering Physician: Ruth Bland MD Date of Service: 03/31/23 Procedure(s): XR ankle LT min 3V Accession Number(s): [id number] cc: Ruth Bland MD EXAMINATION: XR ANKLE, LEFT CLINICAL INFORMATION: Persistent pain and swelling left ankle. COMPARISON: None available. TECHNIQUE: Left ankle is imaged in 3 views. FINDINGS: There is no acute or healing fracture, dislocation, or destructive process. There is mild soft tissue swelling just distal to the malleoli, greater on the medial side. The ankle mortise is symmetric. The talar dome shows no osteochondral lesion. There is benign ossification along the distal lateral tibia in the intraosseous region. Minor spurring is present at the distal malleoli. There is moderate plantar calcaneal spur and borderline posterior calcaneal spur. The retrocalcaneal recess is preserved. The subtalar joint is not well visualized presumably related to positioning. No visible coalition on plain film. There are extensive atherosclerotic calcifications of the vasculature. XR/XR ankle LT min 3V IMPRESSION: -Mild soft tissue swelling, greater on medial side. -No fracture, dislocation, or destructive process. -Moderate plantar calcaneal spur. -Subtalar joint not well visualized presumably related to positioning. No visible coalition on plain film. Dictated By: Stepan Doyle MD Signed By: <Electronically signed by Stepan Doyle MD in OV> 03/31/23 1649 DD/ 1544 TD/TT: Tree Topper: VILLEGAS [facility] External Provider IMG XR PROCEDURES Final Result documented in this encounter Visit Diagnoses Not on filedocumented in this encounter Additional Health Concerns Assessment Noted Time PHQ-9 Depression Total Score: 0 02/11/20 10:41 AM EDT documented as of this encounter Care Teams Build Automation Engineer Relationship Specialty Start Date End Date Winifred Herrera MD [address] [place] [address] PCP - General Family Medicine 10/18/18 Kyleigh Hyman PharmD [address] [place] [address] Pharmacist Internal Medicine 02/15/23 Maged Ricardo MD [address] [place] [address] Nephrology 12/19/24 Chayo Valerio OD [address] [place] [address] Optometry 12/19/24 Melvin Palma [address] [place] [address] Ophthalmology 01/01/25 documented as of this encounter
--- OUTSIDE RECORDS SUMMARY | 2025-01-03 16:41 | XMS_ITS | Encounter Summary ---
Author Organization [facility] Address [address] [facility] [address] [address] [facility] [address] [place] [address] Phone Care Team Providers Care Doper Name Role Phone Winifred Herrera MD Primary Care Provider U bellcarline Encounter Details Date Type Department Care Team (Late Contact Info) Description 03/17/2023 Telephone [facility] [address] [facility] [address] [place] [address] Susan Wolff Social History Tobacco Use Types Packs/Day Years Used Date Smoking Tobacco: Never Smokeless Tobacco: Never Sex and Gender Information Value Date Recorded Sex Assigned at Not on file Legal Sex Male 4:55 PM EST Gender Identity Not on file Sexual Orientation Not on file documented as of this encounter Miscellaneous Notes * Telephone Encounter - Susan Wolff - 03/17/2023 9:22 AM EDT [facility] called tot relay med changes on this mutual PT. D/C hydrochlorothiazide Insulin Lantus 28 units once a day Insulin Lispro 6 units lunch, 8 units for dinner documented in this encounter Plan of Treatment Upcoming Encounters Date Type Department Care Team (Late st Contact Info) Description 01/08/2025 2:15 PM EDT Office Visit [facility] [address] [place] [address] [place] [phone] Maged Ricardo MD [address] [facility] [address] [place] [address] documented as of this encounter Visit Diagnoses Not on filedocumented in this encounter Care Teams Doper Relationship Specialty Start Date End Date Winifred Herrera, MD PCP - General 10/28/20 documented as of this encounter
--- OUTSIDE RECORDS SUMMARY | 2025-01-03 16:41 | XMS_ITS | Encounter Summary ---
Author Organization [employer] Address [address] [facility] 7t [place] [address] Care Team Providers Care Mixer Dry Food Products Name Role Phone Winifred Herrera MD Primary Care Provider [phone] Kyleigh Hyman PharmD Unavailable Maged Ricardo MD Unavailable [phone] Chayo Valerio OD Unavailable Melvin Palma Unavailable Reason for Visit * Reason Onset Date Comments Glucose Device 02/12/2023 Appointment Confirmation 02/12/2023 Encounter Details Date Type Department Care Team (Late st Contact Info) Description 02/12/2023 Telephone [facility] [address] [place], [place] [phone] Winifred Herrera MD [address] [place], [place] [phone] Glucose Device; Appointment Confirmation Social History Tobacco Use Types Packs/Day Years Used Date Smoking Tobacco: Never Assessed Depression Answer Date Recorded Patient Health Questionnaire-9 [...] suspected to have Coronavirus/COVID-19? No / Unsure 02/12/2023 1:24 PM EDT documented as of this encounter Miscellaneous Notes * Telephone Encounter - Verónica Mckeon RN - 02/26/2023 1:29 PM EDT Telephone call to pt in regards to follow of bilateral leg swelling. Scheduled appt on 03/02 at 2:40p with Dr. Herrera. Advised pt to call back with any questions or concerns. Pt verbalizes understanding and agrees with plan. * Telephone Encounter - Tejal Kenny RN - 02/26/2023 10:47 AM EDT T/C placed to pt to book F/U with Sharon followup of bilateral leg swelling in [facility] 03/02. No answer, left V/M. Will retask to swapna kerr for second attempt * Telephone Encounter - Tejal Kenny RN - 02/26/2023 10:45 AM EDT ----- Message from Winifred Herrera MD sent at 02/23/2023 7:45 AM EDT ----- ----- Message ----- From: Jamilah Goddard RN Sent: 02/22/2023 4:49 PM EDT To: Winifred Herrera MD Please review message from [facility] provider. No available appts on the team for the next week. Please advise team nurses if pt can be scheduled with you on one of the days you are on [facility]. ----- Message ----- From: SUE Preciado Sent: 02/22/2023 3:42 PM EDT To: [facility] Team Nurses Please schedule followup of bilateral leg swelling with PCP in 1 week, ordered labs as well to assess secondary causes. Thank you * Telephone Encounter - Tejal Kenny RN - 02/23/2023 10:52 AM EDT ----- Message from Winifred Herrera MD sent at 02/23/2023 7:45 AM EDT ----- ----- Message ----- From: Jamilah Goddard RN Sent: 02/22/2023 4:49 PM EDT To: Winifred Herrera MD Please review message from [facility] provider. No available appts on the team for the next week. Please advise team nurses if pt can be scheduled with you on one of the days you are on [facility]. ----- Message ----- From: SUE Preciado Sent: 02/22/2023 3:42 PM EDT To: [facility] Team Nurses Please schedule followup of bilateral leg swelling with PCP in 1 week, ordered labs as well to assess secondary causes. Thank you * Telephone Encounter - Collins Lam - 02/12/2023 4:22 PM EDT Tc from pt requesting a new script for Continuous Blood Gluc Spectrographer (FreeStyle Russell 2 Huttig) device. Pt states that he lost previous one today after appt of CDTM. Please contact pt at [phone] documented in this encounter Plan of Treatment Upcoming Encounters Date Type Department Care Team (Late st Contact Info) Description 02/02/2025 1:00 PM EDT Medication Management [facility] [address] [place] [address] Kyleigh Hyman PharmD [address] [place] [address] documented as of this encounter Goals Goal Patient Goal Type Associated Problems Recent Progress Patient-Stated? Author Blood Pressure < 140/90 Blood Pressure 130/70(2024 10:32 AM EDT) No Kyleigh Ramos PharmD Hemoglobin A1c < 7 Result Component 8.2( 5 10:11 AM EDT) No Kyleigh Ramos PharmD documented as of this encounter Visit Diagnoses Diagnosis Type 2 diabetes mellitus with other specified complication, unspecified whether chcf insulin use ([facility]) documented in this encounter Additional Health Concerns Assessment Noted Time PHQ-9 Depression Total Score: 0 02/11/20 23 10:41 AM EDT documented as of this encounter Care Teams Mixer Dry Food Products Relationship Specialty Start Date End Date Winifred Herrera MD [address] [place] [address] PCP - General Family Medicine 10/18/18 Kyleigh Hyman PharmD [address] [place] [address] Pharmacist Internal Medicine 02/15/23 Maged Ricardo MD [address] [address] Nephrology 12/19/24 Chayo Valerio OD [address] [place] [address] Optometry 12/19/24 Melvin Palma [address] [place] [address] Ophthalmology 01/01/25 documented as of this encounter
--- OUTSIDE RECORDS SUMMARY | 2025-01-03 16:41 | XMS_ITS | Encounter Summary ---
Author Organization [employer] Address [address] [facility] 7t [place] [address] Care Team Providers Care Adzing And Boring Machine Feeder Name Role Phone Winifred Herrera MD Primary Care Provider + [phone] Kyleigh Hyman PharmD Unavailable [phone] Maged Ricardo MD Unavailable [phone] Teodoro Chayo OD Unavailable [phone] Melvin Palma Unavailable Encounter Details Date Type Department Care Team (Late st Contact Info) Description 09/17/2023 Abstract [facility] 230 [place], [place] [phone] Winifred Herrera MD [address] [place], [place] [phone] Social History Tobacco Use Types Packs/Day Years Used Date Smoking Tobacco: Never Passive Smoke Exposure: Never Smokeless Tobacco: Never Depression Answer Date Recorded Patient Health Questionnaire-9 Score 0 02/10/2023 Housing Stability Answer Date Recorded What is your housing situation today? I have marc mehta 08/05/[address] you li ve. Do you have problems with any of the following? None of the above 08/05/2023 Food Insecurity Answer Date Recorded Within the past 12 months, y ou worried that your food would run out before you got money to buy more: Never True 08/05/2023 Within the past 12 months,th e food you bought just didn't last and you didn't have enough money to get more: Never True Transportation Answer Date Recorded In the past 12 months, has l ack of transportation kept you from medical appts, meetings, work or from getting things needed for daily living? No 08/05/2023 Utilities Answer Date Recorded In the past 12 months, has t he electric, gas, oil or water company threatened to shut off services in your home? No 08/05/2023 Depression Answer Date Recorded Patient Health Questionnaire-2 [...] Description 02/02/2025 1:00 PM EDT Medication Management [facility] [address] [place] [address] Randys-Kyleigh Weiss, PharmD [address] [place] [address] documented as of this encounter Goals Goal Patient Goal Type Associated Problems Recent Progress Patient-Stated? Author Blood Pressure < 140/90 Blood Pressure 130/70(2024 10:32 AM EDT) No Piers-Gambl e, Kyleigh, PharmD Hemoglobin A1c < 7 Result Component 8.2( 10:11 AM EDT) No Piers-Gambl e, Kyleigh, PharmD documented as of this encounter Procedures Procedure Name Priority Date/Time Associated Diagnosis Comments HM DIABETES: URINE PROTEIN SCREENING Routine 08/16/2023 documented in this encounter Results * (ABNORMAL) Diabetes: Urine Protein Screening (08/16/2023) Microalbumin, Urine 292 Creatinine, Random Urine 176 Urine us Historical Provider HEALTH MAINTENANCE Final Result documented in this encounter Visit Diagnoses Not on filedocumented in this encounter Additional Health Concerns Assessment Noted Time PHQ-9 Depression Total Score: 0 02/11/20 23 10:41 AM EDT documented as of this encounter Care Teams Adzing And Boring Machine Feeder Relationship Specialty Start Date End Date Jenkins, Winifred, MD [address] [place] [address] PCP - General Family Medicine 10/18/18 Kyleigh Hyman PharmD [address] [place] [address] Pharmacist Internal Medicine 02/15/23 Maged Ricardo MD [address] [facility] [address] [place] [address] Nephrology 12/19/24 Chayo Valerio OD [address] [place] [address] Optometry 12/19/24 Melvin aPlma [address] [place] [address] Ophthalmology 01/01/25 documented as of this encounter
--- OUTSIDE RECORDS SUMMARY | 2025-01-03 16:41 | XMS_ITS | Encounter Summary ---
Author Organization [employer] Address [address] [facility] 7t [place] [address] Care Team Providers Care Dianeticist Name Role Phone Sharon, Winifred ADAME Primary Care Provider + [phone] Kyleigh Hyman PharmD Unavailable [phone] Maged Ricardo MD Unavailable [phone] Teodoro Chayo OD Unavailable [phone] Melvin Palma Unavailable Reason for Visit * Reason Comments Med Refill Encounter Details Date Type Department Care Team (Late st Contact Info) Description 07/07/2024 Refill [facility] 230 [place], [place] [phone] Kyleigh Hyman, PharmD 230 [place] [address] Social History Tobacco Use Types Packs/Day Years Used Date Smoking Tobacco: Never Passive Smoke Exposure: Never Smokeless Tobacco: Never Depression Answer Date Recorded Patient Health Questionnaire-9 Score 0 06/28/2024 Patient Health Questionnaire-9 Score 0 06/28/2024 Last PHQ-9: Questionnaire Data Not on file 0 06/28/2024 Housing Stability Answer Date Recorded What is your housing situation today? I have marc tyson 06/28/[address] you li [...] 1:00 PM EDT Medication Management [facility] [address] [place] [address] Piers-Weiss, Kyleigh, PharmD 230 [place] [address] documented as of this encounter Goals Goal [...] documented as of this encounter Care Teams Dianeticist Relationship Specialty Start Date End Date Winifred Herrera MD 230 [place] [address] PCP - General Family Medicine 10/18/18 Kyleigh Hyman PharmD 230 [place] [address] Pharmacist Internal Medicine 02/15/23 Maged Ricardo MD [address] [place] [address] Nephrology 12/19/24 Chayo Valerio OD [address] [place] [address] Optometry 12/19/24 Melvin Palma [address] [place] [address] Ophthalmology 01/01/25 documented as of this encounter
--- OUTSIDE RECORDS SUMMARY | 2025-01-03 16:41 | XMS_ITS | Clinical Summary ---
Author Organization [employer] Address [address] [facility] [facility] [address] [place] [address] Care Team Providers Care Brooch Maker Novelty Name Role Phone Sharon, Winifred ADAME Primary Care Provider + [phone] Kyleigh Hyman PharmD Unavailable [phone] Maged Ricardo MD Unavailable [phone] Chayo Valerio OD Unavailable [phone] Melvin Palma Unavailable Allergies No known active allergies Medications Diclofenac Sodium 1 % gelIndications: Chronic shoulder pain, unspecified laterality APPLY TOPICALLY TO THE AFFECTED AREA(S) ONCE OR TWICE DAILY NEEDED FOR PAIN 100 g 3 023 Active fluticasone (Flonase) 50 MCG/ACT nasal sprayIndication s:Seasonal allergies USE 1-2 SPRAYS IN EACH NOSTRIL ONCE DAILY NEEDED 16 g 11 024 Active Pentips 32G X 4 MM miscIndications :Type 2 diabetes mellitus with stage 3 chronic kidney disease, with long-term current use of insulin, unspecified whether stage 3a or 3b CKD (CMS/HCC) USE DIRECTED WITH LANTUS AND HUMALOG 100 each 11 024 Active Lancets (OneTouch Delica Plus [id number]) miscIndications :Type 2 diabetes mellitus with stage 3 chronic kidney disease, with long-term current use of insulin, unspecified whether stage 3a or 3b CKD (CMS/HCC) TEST BLOOD SUGAR 3 OR 4 TIMES PER DAY 100 each 024 Active Alcohol Swabs (Alcohol Prep) 70 % padsIndications :Type 2 diabetes mellitus with stage 3 chronic kidney disease, with long-term current use of insulin, unspecified whether stage 3a or 3b CKD ([facility]/HCC) USE DIRECTED FIVE TIMES DAILY 100 each 024 Active amLODIPine (Norvasc) 5 MG tabletIndicatio ns:Primary hypertension Take 1 tablet (5 mg) by mouth Once per day. Dose decreased 06/28/24 30 tablet 11 024 2024 Active lisinopril 40 MG tabletIndicatio ns:Primary hypertension TAKE 1 TABLET BY MOUTH EVERY MORNING 90 tablet 3 024 Active D3 Super Strength 50 MCG (1999 [place]) capsuleIndicati ons:Vitamin D deficiency TAKE 1 CAPSULE BY MOUTH EVERY MORNING 90 capsule 3 025 Active insulin lispro (HumaLOG) 100 UNIT/ML injectionIndica tions:Type 2 diabetes mellitus with stage 3 chronic kidney disease, with long-term current use of insulin, unspecified whether stage 3a or 3b CKD ([facility]) Inject subcutaneously twice daily 14 units before lunch and 16 units before dinner. Do not use if skipping meal. 15 mL 3 025 Active empagliflozin (Jardiance) 25 MGIndications:T ype 2 diabetes mellitus with stage 3 chronic kidney disease, with long-term current use of insulin, unspecified whether stage 3a or 3b CKD (CMS/HCC) TAKE 1 TABLET BY MOUTH EVERY MORNING 90 tablet 3 025 Active PARoxetine (Paxil) 10 MG tabletIndicatio ns:Depressive disorder TAKE 1 TABLET BY MOUTH EVERY MORNING 30 tablet 025 Active insulin glargine (Lantus SoloStar) 100 UNIT/ML penIndications: Type 2 diabetes mellitus with stage 3 chronic kidney disease, with long-term current use of insulin, unspecified whether stage 3a or 3b CKD ([facility]) Inject 38 units subcutaneously once daily increased 06/28/24 15 mL 3 025 Active Continuous Glucose Oil Dipper (FreeStyle Russell 3 [place]) device 1 each Once per day. Use as directed for CGM 1 each 025 Active Continuous Glucose Sensor (FreeStyle Russell 3 Plus Sensor) misc Apply 1 every 15 days as directed for CGM 2 each 025 Active glucose blood (FreeStyle Precision Jese Test) test strip Use to test blood sugar 3 times daily in case of CGM failure or extremes of BG 100 each 025 2025 Active atorvastatin (Lipitor) 40 MG tabletIndicatio ns:Type 2 diabetes mellitus with other diabetic kidney complication, with long-term current use of insulin ([facility]) TAKE 1 TABLET BY MOUTH AT BEDTIME 90 tablet 3 025 Active Dulaglutide (Trulicity) 1.5 MG/0.5ML solution auto-injectorIn dications:Type 2 diabetes mellitus with stage 3 chronic kidney disease, with long-term current use of insulin, unspecified whether stage 3a or 3b CKD ([facility]) Inject 1.5 mg under the skin 1 (one) time per week. 2 mL 025 Active glucose 4 g chewable tabletIndicatio ns:Type 2 diabetes mellitus with stage 3 chronic kidney disease, with long-term current use of insulin, unspecified whether stage 3a or 3b CKD ([facility]) Chew 4 tablets (16 g) if needed for low blood sugar. 50 tablet 025 2025 Active atorvastatin (Lipitor) 40 MG tabletIndicatio ns:Type 2 diabetes mellitus with other diabetic kidney complication, with long-term current use of insulin ([facility]) TAKE 1 TABLET BY MOUTH AT BEDTIME 90 tablet 2024 Discontinued insulin glargine (Lantus SoloStar) 100 UNIT/ML penIndications: Type 2 diabetes mellitus with stage 3 chronic kidney disease, with long-term current use of insulin, unspecified whether stage 3a or 3b CKD ([facility]) Inject 38 units subcutaneously once daily increased 06/28/24 15 mL 2024 Discontinued(R eorder (will not trigger notification to Pharmacy)) glucose blood (Accept SoftwareTouch Ultra) test stripIndication s:Type 2 diabetes mellitus with stage 3 chronic kidney disease, with long-term current use of insulin, unspecified whether stage 3a or 3b CKD (CMS/HCC) Check glucose bid 200 strip 024 2024 Discontinued(O ther) Dulaglutide (Trulicity) 0.75 MG/0.5ML solution auto-injectorIn dications:Type 2 diabetes mellitus with stage 3 chronic kidney disease, with long-term current use of insulin, unspecified whether stage 3a or 3b CKD (CMS/HCC) Inject 0.75 mg under the skin 1 (one) time per week. 2 mL 3 024 2024 Discontinued(R eorder (will not trigger notification to Pharmacy)) melatonin 3 MG tablet TAKE 1 TO 2 TABLETS BY MOUTH AT BEDTIME NEEDED FOR SLEEP 2024 Discontinued(M ed list cleanup (will not trigger notification to Pharmacy)) Continuous Glucose Sensor (Dexcom G7 Sensor) misc USE DIRECTED TO TEST BLOOD SUGAR, CHANGE EVERY 10 DAYS 024 2024 Discontinued(O ther) Dulaglutide (Trulicity) 0.75 MG/0.5ML solution auto-injectorIn dications:Type 2 diabetes mellitus with stage 3 chronic kidney disease, with long-term current use of insulin, unspecified whether stage 3a or 3b CKD (CMS/HCC) Inject 0.75 mg under the skin 1 (one) time per week. 2 mL 3 025 2024 Discontinued(D ose adjustment) Active Problems Patient Care Coordination No te Formatting of this note migh t be different from the original. Enrolled in [facility] DM and [facility] HTN clinic with Braden RuizD, [facility] Problem Noted Date Diagnosed Date Cardiac risk counseling 07/26/2024 Overview (07/26/2024): Calculated 07/26/24 The ASCVD Risk score (Selvin SMITH, et al., 2019) failed to calculate for the following reasons: The valid total cholesterol range is 130 to 320 mg/dL Lab Results Component Value Date LDLCHOL 39 01/25/2023 LDLCHOL 26 10/13/2021 -Atherosclerotic Cardiovascular Disease (ASCVD) Risk Calculator is intended for a person age 40-79 without ASCVD and with LDL-cholesterol < 190/mg/dl to assesses the chances of developing heart disease over the next 10 years. -ACC/AHA risk categories based on a person's estimated 10-year risk of CVD: ?Low - <5 percent ?Borderline risk - 5 to 7.4 percent ?Intermediate risk- 7.5 to 19.9 percent ?High risk- >=20 percent -Tobacco cessation: not applicable -Statin therapy: atorvastatin 40 -Importance of moderate physical activity and nutrition interventions discussed. Obesity, morbid 06/28/2024 Other specified health status 04/14/2023 Overview (01/01/2025): -next comprehensive annual evaluation due after 12/27/25 -eye care facilitated by [facility] and [facility], seen 12/2024 -has dentures -health care proxy 06/28/24 Assessment & Plan (06/28/2024 3:34 PM EDT): -next physical exam due after 07/28/2024 -eye care facilitated by [facility] next appointment in April 2023. -only has dentures. -health care proxy 06/28/24 Assessment & Plan (07/28/2023 3:38 PM EDT): -next physical exam due after 07/28/2024 -eye care facilitated by [facility] next appointment in April 2023. -dental home is Assessment & Plan (04/14/2023 4:09 PM EDT): -next physical exam due after -eye care facilitated by [facility] next appointment in April 2023. -dental home is Left bundle branch block 10/16/2022 Overview (12/27/2024): Noted incidentally during EKG. Not present in 2017 EKG. Pt is asymptomatic. Is now followed by cardiology -Echocardiogram had an EF 45-50% Assessment & Plan (07/28/2023 3:37 PM EDT): Noted incidentally during EKG. Not present in 2017 EKG. Pt is asymptomatic. Is now followed by cardiology -Echocardiogram had an EF 45-50% Assessment & Plan (04/14/2023 2:47 PM EDT): Noted incidentally during EKG. Not present in 2017 EKG. Pt is asymptomatic. Is now followed by cardiology -Echocardiogram had an EF 45-50% Assessment & Plan (02/09/2023 9:08 AM EDT): Noted incidentally during EKG. Not present in 2017 EKG. Pt is asymptomatic. Is now followed by cardiology -Echocardiogram had an EF 45-50% Recurrent major depressive episodes, moderate Overview (12/27/2024): Denies suicidial or homacidial ideation. Therapist and psychiatrist offered. Assessment & Plan (12/27/2024 1:20 PM EDT): Denies suicidial or homacidial ideation. Therapist and psychiatrist offered. Obstructive sleep apnea of adult 12/16/2021 Overview (04/14/2023): Distant Hx of Dx of TARA but has never tolerated C-PAP. Sleep medicine recommended sleep study 04/14/2023. Assessment & Plan (07/28/2023 3:37 PM EDT): Distant Hx of Dx of TARA but has never tolerated C-PAP. Sleep medicine recommended sleep study 04/14/2023. Assessment & Plan (04/14/2023 3:58 PM EDT): Distant Hx of Dx of TARA but has never tolerated C-PAP. Sleep medicine recommended sleep study 04/14/2023. Assessment & Plan (02/10/2023 10:48 AM EDT): Distant Hx of Dx of TARA but has never tolerated C-PAP. Hypertensive heart disease without heart failure 12/26/2020 Stage 3b chronic kidney disease 12/26/2020 Overview (12/27/2024): Lab Results Component Value Date CREATININE 1.46 [...] renal func and Uprot; check PTH/vit D Assessment & Plan (12/27/2024 1:18 PM EDT): Lab Results Component Value Date CREATININE 1.46 [...] renal func and Uprot; check PTH/vit D Assessment & Plan (07/28/2023 3:38 PM EDT): Increasing Cr in setting of diabetes and [...] including NSAIDS. -improve BS and BP control Assessment & Plan (04/14/2023 3:59 PM EDT): Increasing Cr in setting of diabetes and [...] including NSAIDS. -improve BS and BP control Assessment & Plan (02/09/2023 9:09 AM EDT): Increasing Cr in setting of diabetes and HTN. His Cr was stable at 1.4 with EGFR of 50 on 01/05/2020. Highest Cr was 1.7 in 06/2019 Cr bumped to 2.19 12/15/2021 eGFR 30mL/min MA/Cr ration 174 mcg/mg Cr 12/15/2021 (improved from 386mcg/mg Cr 2020 Referral back to nephrology 01/2022 -continue linopril 40mg daily -congntinue jardiance 10mg daily -Avoid nephrotoxic agents including NSAIDS. -improve BS and BP control Gastroesophageal reflux disease 06/27/2012 Hypertensive disorder 06/27/2012 Overview (08/11/2024): -BP at goal -continue lisinopril 40 mg qd -decrease amlodipine to 5 mg qd. -Importance of low-sodium diet and regular moderate physical activity discussed. Assessment & Plan (12/27/2024 1:18 PM EDT): -BP at goal -continue lisinopril 40 mg qd -decrease amlodipine to 5 mg qd. -Importance of low-sodium diet and regular moderate physical activity discussed. Assessment & Plan (06/28/2024 3:32 PM EDT): -BP at goal -continue lisinopril 40 mg qd -decrease amlodipine to 5 mg qd. -continue HCTZ 25 mg, monitor for hypercalcemia. -Importance of low-sodium diet and regular moderate physical activity discussed. Assessment & Plan (07/28/2023 3:37 PM EDT): - continue lisinopril 40 mg qd -continue amlodipine 10 mg qd. -continue HCTZ 25 mg, monitor for hypercalcemia. - Importance of low-sodium diet and regular moderate physical activity discussed. Assessment & Plan (04/14/2023 2:47 PM EDT): - continue lisinopril 40 mg qd -continue amlodipine 10 mg qd. -continue HCTZ 25 mg, monitor for hypercalcemia. - Importance of low-sodium diet and regular moderate physical activity discussed. Assessment & Plan (02/09/2023 9:07 AM EDT): - continue lisinopril 40 mg qd -continue amlodipine 10 mg qd. -continue HCTZ 25 mg, monitor for hypercalcemia. - Importance of low-sodium diet and regular moderate physical activity discussed. Type 2 diabetes mellitus wit h diabetic chronic kidney disease 10/18/2003 Overview (01/01/2025): Re-enrolled in [facility] 07/14/24 Lab Results Component Value Date HGBA1C 8.2 (A) 12/27/2024 HGBA1C 8.0 (A) 12/15/2024 HGBA1C 8.4 (H) 07/26/2024 Lab Results Component Value Date MICROALBUR 624.0 07/26/2024 CREATININE 1.46 (H) 07/26/2024 -Clem/Arb: lisinopril 40mg -Statin therapy: atorvastatin 40mg -Diabetic eye exam: with [facility] 12/31/24 -Diabetic foot exam: Done12/27/24 -Continue lifestyle modifications -metformin discontinued due to CKD in past -Lantus and Humalog titrated by CDTM -Jardiance increased to 25mg once daily by CDTM 08/11/24 -Trulicity increased to 1.5 mg weekly 02/23/24, Pt reports he stopped taking Trulicity approx. 2 months ago 06/28/24; requested retrial to [facility] and trulicity 0.75mg once weekly restarted 08/11/24 -SMBG via Dexcom G7 -Given lancets to test BGL 06/28/24 -Saw Collaborative Drug Therapy Managment Program with our BradenDDRU 12/22/24, Plan: - Increase trulicity to 1.5mg once weekly - Decrease lantus to 38 units once daily - Refill for glucose tablets provided - Continue focus on meal portions and healthy diet and lifestyle Assessment & Plan (12/27/2024 1:19 PM EDT): Re-enrolled in [facility] 07/14/24 Lab Results Component Value Date HGBA1C 8.2 (A) 12/27/2024 HGBA1C 8.0 (A) 12/15/2024 HGBA1C 8.4 (H) 07/26/2024 Lab Results Component Value Date MICROALBUR 624.0 07/26/2024 CREATININE 1.46 (H) 07/26/2024 -Clem/Arb: lisinopril 40mg -Statin therapy: atorvastatin 40mg -Diabetic eye exam: Seen by [facility] eye care last done 12/2021. Referral done 04/14/2023. -Diabetic foot exam: Done12/27/24 -Continue lifestyle modifications -metformin discontinued due to CKD in past -Lantus and Humalog titrated by [facility] Assessment & Plan (06/28/2024 3:44 PM EDT): Diabetes is not controlled, A1C worsened compared to last. Lab Results Component Value Date HGBA1C 10.0 (A) 06/28/2024 HGBA1C 9.2 (A) 02/22/2024 HGBA1C 10.3 (A) 07/28/2023 Lab Results Component Value Date MICROALBUR 9.4 12/15/2021 CREATININE 1.57 (H) 03/09/2023 -Clem/Arb: lisinopril 40mg -Statin therapy: atorvastatin 40mg -Diabetic eye exam: Seen by [facility] eye care last done 12/2021. Referral done 04/14/2023. -Diabetic foot exam: Done 06/28/24 -Continue lifestyle modifications -metformin discontinued due to CKD in past -Increase Lantus to 38 Units -Continue Humalog 12 units and continue 10 units before dinner 06/28/24 -Jardiance 10mg -Trulicity increased to 1.5 mg weekly 02/23/24, Pt reports he stopped taking Trulicity approx. 2 months ago 06/28/24 -Does not see a specialist or Collaborative Drug Therapy Managment Program with our DRU Daniel. -referred to Collabor[facility] Drug Therapy Managment Program with our DRU Daniel 06/28/24. -Had labs ordered that is re-ordered 06/28/24. -Given lancets to test BGL 06/28/24 Assessment & Plan (07/28/2023 3:51 PM EDT): Diabetes is controlled. -Resatrt CDTM Lab Results Component Value Date HGBA1C 11.4 (A) 02/22/2023 HGBA1C 12.3 (H) 01/25/2023 HGBA1C 9.5 (H) 03/19/2022 -No results found for: POCA1C - Lab Results Component Value Date MICROALBUR 9.4 12/15/2021 CREATININE 1.57 (H) 03/09/2023 -Changes: -Clem/Arb: lisinopril 40mg -Statin therapy: atorvastatin 40mg -Diabetic eye exam: Seen by [facility] eye care last done 12/2021. Referral done 04/14/2023. -Diabetic foot exam: Done 04/14/2023 -Continue lifestyle modifications -increased Lantus from 28 units to 32 units once a day -Humalog -Jardiance 10mg -did not toleat GLP-1 in the past Assessment & Plan (04/14/2023 3:56 PM EDT): Diabetes is not controlled but getting better. -CDTM reports doing well in CDTM Lab Results Component Value Date HGBA1C 11.4 (A) 02/22/2023 HGBA1C 12.3 (H) 01/25/2023 HGBA1C 9.5 (H) 03/19/2022 - Lab Results Component Value Date MICROALBUR 9.4 12/15/2021 CREATININE 1.57 (H) 03/09/2023 -Changes: -Clem/Arb: -Statin therapy: atorvastatin 40mg -Diabetic eye exam: Seen by [facility] eye care last done 12/2021. Referral done 04/14/2023. 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 Followed by orthopedics. Number given today 04/14/2023. Assessment & Plan (06/28/2024 3:44 PM EDT): Right wrist. Followed by orthopedics. Number given today 04/14/2023. Assessment & Plan (07/28/2023 3:39 PM EDT): Right wrist. Referred to orthopedics, pending date. Number given today 04/14/2023. Assessment & Plan (04/14/2023 4:05 PM EDT): Right wrist. Referred to orthopedics, pending date. Number given today 04/14/2023. Dependent edema 03/02/2023 06/28/2024 Overview (04/14/2023): Encouraged to get labs today, if normal consider decreasing amlodipine. -Follow up CDTM as schdueled. Assessment & Plan (07/28/2023 3:38 PM EDT): Encouraged to get labs today, if normal consider decreasing amlodipine. -Follow up CDTM as schdueled. Assessment & Plan (04/14/2023 3:46 PM EDT): Encouraged to get labs today, if normal consider decreasing amlodipine. -Follow up CDTM as schdueled. Assessment & Plan (03/02/2023 2:51 PM EDT): Encouraged to get labs today, if normal consider decreasing amlodipine. -Follow up me 6 weeks. -Follow up CDTM as schdueled. Daytime somnolence 02/10/2023 Overview (02/10/2023): Melatonin 1mg given. Assessment & Plan (02/10/2023 10:57 AM EDT): Melatonin 1mg given. Epigastric pain 10/16/2022 06/28/2024 Hypercalcemia 12/26/2020 06/28/2024 Shoulder pain 05/30/2014 12/27/2024 Depressive disorder 06/27/2012 02/11/20 23 Overview (02/09/2023): -Doing much better. -Given LBBB will given paroxetine 10mgd daily. Max dose 40 given renal insuffiency. Assessment & Plan (02/09/2023 9:08 AM EDT): -Doing much better. -Given LBBB will given paroxetine 10mgd daily. Max dose 40 given renal insuffiency. Obesity 06/27/2012 06/28/2024 Onychomycosis 06/27/2012 06/28/2024 Encounters Date Type Department Care Team Description 01/03/2025 Orders Only [facility] [address] [place] [id number] Winifred Herrera MD 12/29/[address] [address] Winifred Herrera MD Appointment Request 12/27/2024 10:15 AM EDT Office Visit [address] [address] Winifred Herrera MD Other specified health status (Primary Dx); Type 2 diabetes mellitus with stage 3 chronic kidney disease, with long-term current use of insulin, unspecified whether stage 3a or 3b CKD ([facility]/HCC); Primary hypertension; Recurrent major depressive episodes, moderate (CMS/HCC); Class 2 severe obesity due to excess calories with serious comorbidity and body mass index (BMI) of 38.0 to 38.9 in adult (CMS/HCC); Exercise counseling; Dietary counseling; Stage 3b chronic kidney disease (CMS/HCC); Encounter for immunization; Decreased cardiac ejection fraction 12/27/2024 Travel 12/26/[address] [address] Winifred Herrera MD pre-op; chartprep 12/22/2024 Travel 12/19/2024 Orders Only [facility] [address] [place] [address] Winifred Herrera MD 12/18/2024 Refill [facility] [address] [place] [address] Winifred Herrera MD Type 2 diabetes mellitus with other diabetic kidney complication, with long-term current use of insulin ([facility]) 12/15/2024 Travel 12/15/2024 Patient Outreach [facility] [address] [place] [address] Winifred Herrera MD Pre-visit Planning (Pre-visit planning - LVM ) 12/11/2024 Refill [facility] [address] [place] [address] Winifred Herrera MD Type 2 diabetes mellitus with stage 3 chronic kidney disease, with long-term current use of insulin, unspecified whether stage 3a or 3b CKD (CMS/HCC) 11/21/2024 Telephone [facility] [address] [place] [phone] Winifred Herrera MD Call Back Request 11/17/2024 Refill [facility] [address] [place] [address] Latoya Aparicio ANP Depressive disorder 11/06/2024 Refill [facility] [address] [place] [address] Kyleigh Hyman, PharmD Type 2 diabetes mellitus with stage 3 chronic kidney disease, with long-term current use of insulin, unspecified whether stage 3a or 3b CKD ([facility]) 10/27/2024 Telephone [facility] [address] [place] [address] Kyleigh Hyman, PharmD 10/26/2024 Telephone [facility] [address] [place] [address] Haroon Goddard MA December10/25/2024 Refill [facility] [address] [place] [address] Winifred Herrera MD Vitamin D deficiency from Last 3 Months Immunizations Name Administration Dates Next Due Hep B, adult 12/05/2014,09/03/2014,02/19/2014 Influenza High-dose Quadriva lent Preservative Free 07/25/2021,01/30/2021 Influenza injectable quadriv alent IIV4 with preservative 08/25/2018,10/01/2017,08/12/2016 Influenza injectable quadriv alent preservative free 08/29/2015 Influenza, High Dose Seasona l, Preservative Free 06/28/2024,10/26/2019 Influenza, IIV3, injectable 08/24/2014,0 07/01/2011,07/16/2010,11/04 Influenza, Split (incl. jeff fied surface antigen) 08/02/2013,06/27/2012 Influenza, Unspecified 07/25/2021,2020,08/24/2014,07/01,07/16/2010,11/04/2006 Pfizer Covid-19 Vaccine 12+ 12/27/2024 Pfizer Covid-19 Vaccine 12+ Bivalent 04/14/2023 Pneumococcal Conjugate PCV 20 03/08/2023 Pneumococcal Polysaccharide PPSV23 09/03/2014, RSV Bivalent 07/14/2024 Tdap 04/14/2023,06/27/2012,04/29/2007 Zoster, Recombinant 06/09/2022,,03/31/2022,03/31 Zoster, live 09/17/2014 Family History Medical History Relation Name Comments Diabetes Father's Brother Relation Name Status Comments Father's Brother Social History Tobacco Use Types Packs/Day Years Used Date Smoking Tobacco: Never Passive Smoke Exposure: Never Smokeless Tobacco: Never Tobacco Cessation:Counseling Given: Not Answered Depression Answer Date Recorded Patient Health Questionnaire-9 [...] Orientation Straight 08/17/2022 10 :15 AM EDT Last Filed Vital Signs Vital Sign Reading [...] Mass Index 39.25 12/27/2024 10:07 AM EDT Plan of Treatment Upcoming Encounters Date Type Department Care Team (Late st Contact Info) Description 02/02/2025 1:00 PM EDT Medication Management [facility] [address] [place] [address] Kyleigh Hyman, PharmD [address] [place] [address] Health Maintenance Due Date Last Done Comments CT Colonography 1954 FIT DNA/Cologuard 1955 FIT 1955 FOBT 1955 Sigmoidoscopy 1955 Diabetes: Hemoglobin A1C 03/29/2025 025, 12/15/2024, 07/26/2024, Additional history exists Depression Screening 06/28/2025 06/28/2024, 06/28/20 24 SDOH Screening 06/28/2025 06/28/2024 Lipid Panel 07/26/2025 07/26/2024, 01/16, 10/13/2021, Additional history exists Eye Exam 09/01/2025 09/01/2024, 08/18, 09/01/2024, Additional history exists Alcohol/Substance Use Screening 12/27/2025 12/27/2024 Diabetes: Foot Exam 12/27/2025 12/27/2024, 12/27/2024, 12/27/2024, Additional history exists Tobacco Screening 12/27/2025 12/27/2024 Colonoscopy 08/12/2027 08/12/2017 Colorectal Cancer Screening 08/12/2027 DTaP/Tdap/Td Vaccines (4 - Td or Tdap) 04/14/2033 04/14/2023, 06/27/2012, 04/29/2007 Hepatitis B Vaccines Completed 12/05/2014, 09/03/2014, 02/19/2014 Zoster Vaccines Completed 06/09/2022, 05/19, 03/31/2022, Additional history exists Hepatitis C Screening Completed 03/02/2023 Pneumococcal Vaccine: 50+ Years Completed 03/08/2023, 09/03/2014, 11/04/2006 Influenza Vaccine Completed 06/28/2024, , 07/25/2021, Additional history exists RSV Patients and Patients Aged 60 years or older Completed 07/14/2024 COVID-19 Vaccine Completed 12/27/2024, , 03/12/2022, Additional history exists HIB Vaccines Aged Out No longer eligi ble based on patient's age to complete this topic HPV Vaccines Aged Out No longer eligi ble based on patient's age to complete this topic Hepatitis A Vaccines Aged Out No long er eligible based on patient's age to complete this topic IPV Vaccines Aged Out No longer eligi ble based on patient's age to complete this topic Meningococcal Vaccine Aged Out No jackson angela eligible based on patient's age to complete this topic RSV under 20 months Aged Out No longe r eligible based on patient's age to complete this topic Rotavirus Vaccines Aged Out No longer eligible based on patient's age to complete this topic Goals Goal Patient Goal Type Associated Problems Recent Progress Patient-Stated? Author Blood Pressure < 140/90 Blood Pressure 130/70(2024 10:32 AM EDT) No Kyleigh Ramos PharmD Hemoglobin A1c < 7 Result Component 8.2( 10:11 AM EDT) No Kyleigh Ramos PharmD Procedures Procedure Name Priority Date/Time Associated Diagnosis Comments BASIC METABOLIC PANEL Routine 01/03/2025 2:23 PM EDT POCT GLUCOSE Routine 12/27/2024 10:12 AM EDT Type 2 diabetes mellitus with stage 3 chronic kidney disease, with long-term current use of insulin, unspecified whether stage 3a or 3b CKD ([facility]) POCT GLYCOSYLATED HEMOGLOBIN (HGB A1C) Routine 12/27/2024 10:11 AM EDT Type 2 diabetes mellitus with stage 3 chronic kidney disease, with long-term current use of insulin, unspecified whether stage 3a or 3b CKD (CMS/HCC) POCT GLYCATED HEMOGLOBIN, TOTAL Routine 12/15/2024 3:32 PM EST Type 2 diabetes mellitus with stage 3 chronic kidney disease, with long-term current use of insulin, unspecified whether stage 3a or 3b CKD (CMS/HCC) LIPID PANEL, STANDARD Routine 07/26/2024 10:13 AM EDT Type 2 diabetes mellitus with stage 3 chronic kidney disease, with long-term current use of insulin, unspecified whether stage 3a or 3b CKD (CMS/HCC) HEPATITIS C AB W/REFL TO HCV RNA, QN, PCR Routine 03/02/2023 3:17 PM EDT HM COLONOSCOPY Routine 08/12/2017 from Last 3 Months or Most Recently Relevant to Health Maintenance Results * (ABNORMAL) Basic Metabolic Panel (01/03/2025 2:23 PM EDT) Sodium 140 135 - 145 mmol/L [facility] Potassium 4.2 3.3 - 5.1 mmol/L [facility] Chloride 110(H) 96 - 108 mmol/L [facility] Carbon Dioxide 23 22 - 29 mmol/L [facility] Anion Gap 11(L) 12 - 20 [facility] Urea Nitrogen (BUN) 28(H) 9 - 16 mg/dL [facility] Creatinine, Serum 1.42(H) 0.5 - 1.4 mg/dL [facility] Estimated Glomerular Filt Rate 49 [facility] Comment:Chronic Kidney Disea se: Estimated GFR < 60 mL/min/1.93y0Smpvnj Kidney Disease: Estimated GFR < 15 mL/min/1.73m2 Glucose 177(H) 60 - 115 mg/dL [facility] Calcium 9.5 8.4 - 10.2 mg/dL [facility] 01/03/2025 2:23 PM EDT 01/03/2025 4:08 PM EDT us Winifred Herrera MD LAB BLOOD ORDERABLES Final Result [facility] [address] [place], [place] [phone] * POCT glucose manually resulted (12/27/2024 10:12 AM EDT) Glucose Blood, POC 175 60 - 200 mg/dL QC Media Lot # [id number] Lot# Expiration Date [id number] Blood Capillary blood specimen / Unknown 12/27/2024 10:12 AM EDT us Winifred Herrera MD POINT OF CARE TEST ENTER/E DIT ORDERABLES Final Result * (ABNORMAL) POCT glycosylated hemoglobin (Hgb A1c) (12/27/2024 10:11 AM EDT) Hemoglobin A1C 8.2(A) 4.0 - 6.0 % QC Media Lot # [id number] Lot# Expiration Date Blood Capillary blood specimen / Unknown 12/27/2024 10:11 AM EDT us Winifred Herrera MD POINT OF CARE TEST ENTER/E DIT ORDERABLES Final Result * (ABNORMAL) POCT A1C (12/15/2024 3:32 PM EST) Hemoglobin A1C 8.0(A) 4.0 - 6.0 % QC Media Lot # [id number] Lot# Expiration Date Blood 12/15/2024 3:32 PM EST us Winifred Herrera MD POINT OF CARE TEST ENTER/E DIT ORDERABLES Final Result * Lipid Panel, Standard (07/26/2024 10:13 AM EDT) Triglycerides 74 <150 mg/dL [facility] Comment:Desirable Triglyceri de: less than 150 mg/dLBorderline High Triglyceride 150-199 mg/dLHigh Triglyceride: 200-499 mg/dLVery High Triglyceride: greater than or equal to 5OO mg/dL Cholesterol 98 <200 mg/dL [facility] Comment:Desirable Cholestero l: less than 200 mg/dLBorderline High Cholesterol: 200-239 mg/dLHigh Cholesterol: greater than 239 mg/dL LDL Cholesterol Calculated 42 <100 mg/dL [facility] Comment:Desirable LDL: less than 100 mg/dLNear Optimal/Above Optimal LDL: 110- 129 mg/dLBorderline High LDL: 130-159 mg/dLHigh LDL: 160-189 mg/dLVery High LDL: greater than or equal to 190 mg/dL HDL Cholesterol 42 >40 mg/dL [facility] Comment:Desirable HDL: great er than 40 mg/dL Note: This HDL assay may give artificially low results in patients with liver disease. Blood Venous blood specimen / Unknown 07/26/2024 10:13 AM EDT 07/26/2024 11:34 AM EDT Winifred Herrera MD LAB BLOOD ORDERABLES Final Result Performing Organization Address City/[facility]/ZIP Co de Phone Number [facility] [address] [place] [phone] * Hepatitis C Antibody with Reflex to HCV, RNA, Quantitative, Real-Time PCR (03/02/2023 3:17 PM EDT) [facility] Hepatitis C Antibody NON-REACT PHILIPP NON-REACT PHILIPP [facility] [place] Index 0.16 <1.00 [facility] Comment: HCV antibody was non-reactive. There is no laboratory evidence of HCV infection. In most cases, no further action is required. However, if recent HCV exposure is suspected, a test for HCV RNA (test code 74397) is suggested. For additional information please refer to http://education.DebtFolio/faq/XOI95b1 (This link is being provided for informational/ educational purposes only.) 03/02/2023 3:17 PM EDT 03/02/2023 3:17 PM EDT Narrative [facility] - 03/03/2023 8:57 AM EDT FASTING:NO FASTING: NO Winifred Herrera MD LAB BLOOD ORDERABLES Final Result Performing Organization Address City/[facility]/ZIP Co de Phone Number [facility] [address], [place] [address] [facility] [place] [address] [place] [phone] * Hm Colonoscopy (08/12/2017) Colonoscopy hyperplastic plyp Dr. 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
--- OUTSIDE RECORDS SUMMARY | 2025-01-03 16:41 | XMS_ITS | Encounter Summary ---
Author Organization [employer] Address 75 [facility] 7t h Floor [place] [phone] Care Team Providers Care Stock Trader Name Role Phone Winifred Herrera MD Primary Care Provider [phone] Kyleigh Hyman PharmD Unavailable Maged Ricardo MD Unavailable [phone] Chayo Valerio OD Unavailable Melvin Palma Unavailable Encounter Details Date Type Department Care Team (Late st Contact Info) Description 11/02/2022 Abstract [facility] [address] [place] [address] Winifred Herrera MD [address] [place], [place] [phone] Social History Tobacco Use Types Packs/Day Years Used Date Smoking Tobacco: Never Assessed Sex and Gender Information Value Date Recorded Sex Assigned at Male 08/17/2022 10:15 AM EDT Legal Sex Male 10:15 AM EDT Gender Identity Male 08/17/2022 10:15 AM EDT Sexual Orientation Straight 08/17/2022 10 :15 AM EDT documented as of this encounter Plan of Treatment Upcoming Encounters Date Type Department Care Team (Late st Contact Info) Description 02/02/2025 1:00 PM EDT Medication Management [facility] [address] [place] [address] Kyleigh Hyman, PharmD [address] [place] [address] documented as of this encounter Procedures Procedure Name Priority Date/Time Associated Diagnosis Comments COLONOSCOPY Routine 08/12/2017 documented in this encounter Results * Colonoscopy (08/12/2017) Colonoscopy hyperplastic plyp Dr. Navarrete us Historical Provider HEALTH MAINTENANCE Final Result documented in this encounter Visit Diagnoses Not on filedocumented in this encounter Care Teams Stock Trader Relationship Specialty Start Date End Date Winifred Herrera MD [address] [place] [address] PCP - General Family Medicine 10/18/18 Kyleigh Hyman PharmD [address] [place] [address] Pharmacist Internal Medicine 02/15/23 Maged Ricardo MD 100 [facility] [place] [address] [address] Nephrology 12/19/24 Chayo Valerio OD [address] [place] [address] Optometry 12/19/24 Melvin Palma [address] [place] [address] Ophthalmology 01/01/25 documented as of this encounter
--- OUTSIDE RECORDS SUMMARY | 2025-01-03 16:41 | XMS_ITS | Encounter Summary ---
Author Organization [facility] Address [address] [facility] 200 [place] [address] Phone Care Team Providers Care Talent Acquisition Specialist Name Role Phone Winifred Herrera MD Primary Care Provider [facility] horn Encounter Details Date Type Department Care Team (Late st Contact Info) Description 01/08/2021 Orders Only [facility] [address] [facility] [address] [place] [address] ProviderJoe MD [address] [place] [phone] Social History Tobacco Use Types Packs/Day Years Used Date Smoking Tobacco: Never Smokeless Tobacco: Never Sex and Gender Information Value Date Recorded Sex Assigned at Not on file Legal Sex Male 4:55 PM EST Gender Identity Not on file Sexual Orientation Not on file documented as of this encounter Plan of Treatment Upcoming Encounters Date Type Department Care Team (Late st Contact Info) Description 01/08/2025 2:15 PM EDT Office Visit [facility] [address] [place] [phone] Maged Ricardo MD 1476 [facility] [address] [place] [phone] documented as of this encounter Procedures Procedure Name Priority Date/Time Associated Diagnosis Comments EXT RESULT ENTRY Routine 01/08/2021 documented in this encounter Results * EXT RESULT ENTRY (01/08/2021) us Historical Provider LAB BLOOD ORDERABLES Martha l Result documented in this encounter Visit Diagnoses Not on filedocumented in this encounter Care Teams Talent Acquisition Specialist Relationship Specialty Start Date End Date Sharon, Winifred Wilson MD PCP - General 10/28/20 documented as of this encounter
[2025-01-03 17:20] LABS: Creatinine Urine 79.71 mg/dL; Microalbum/Creatinine Ratio Ur 535.6 ug/mg cr (<30)
== END 2025-01-03 14:21 | disposition home or self-care (01) ==
LOC: HO.HHCL 14:20
PROVIDERS: Visit Provider Family Medicine
DX: E11.22 Type 2 diabetes mellitus with diabetic chronic kidney disease (principal); N18.30 Chronic kidney disease, stage 3 unspecified; Z79.4 Long term (current) use of insulin
CPT/HCPCS: 36415; 80048; 82043; 82570

== ENCOUNTER → 2025-01-16 13:53 | Outpatient (REF) | payer MEDICARE, SELFPAY ==
--- NOTE | 2025-01-16 13:56 | CA_ITS ---
Transthoracic Echocardiogram Patient (Last, First, Middle): Jourdan Macias, Gender: Male Date of : 1955 Age: 69 Procedure Date: 01/16/2025 Procedure Type: Transthoracic Echocardiogram Location: OP Height: 167.64 cm Weight: 107.96 kg BSA: 2.15 m2 Heart Rate: bpm BP: 110 / 68 mmHg Major Assembler: VIVIANE Referring MD: Winifred Herrera MD Symptoms: R93.1 ABN.FINDINGS ONF DIAGNOSTIC IMAGING OF HEART AND CORONARY Study Quality: Fair, contrast ECG Rhythm: Sinus Conclusions: - The left ventricular systolic function is mildly decreased. The visually estimated ejection fraction is between 45-50%. - No obvious valvular pathology seen on this study. Findings Left Ventricle Normal left ventricular cavity size. There is normal left ventricular wall thickness. The left ventricular systolic function is mildly decreased. The visually estimated ejection fraction is between 45-50%. Diastolic function is normal for age. Right Ventricle Normal right ventricular cavity size and systolic function. Atria Both atria are normal in size. Aortic Valve There is a normal trileaflet aortic valve. There is no aortic valve stenosis. There is no aortic valve regurgitation. Mitral Valve There is mild mitral annular calcification. There is no mitral valve regurgitation. There is no mitral valve stenosis. Pulmonic Valve The pulmonic valve is likely normal. Tricuspid Valve There is trace tricuspid valve regurgitation. Tricuspid regurgitation envelope is inadequate for calculation of right ventricular systolic pressure. Great Vessels The asc aorta is normal in size. Venous The inferior vena cava was not well visualized. Pericardium/Pleural There is no evidence of pericardial effusion. Prior Study Comparison No prior study available for comparison. Recommendations, Care & Conclusions No obvious valvular pathology seen on this study. Measurements 2D Linear Measurements IVSd: 0.95 0.6-0.9/0.6-1.0 cm LVIDd: 4.73 3.9-5.3/4.2-5.9 cm LVIDd Index: 2.20 2.4-3.2/2.2-3.1 cm/m2 LVIDs: 3.41 2.0-3.6 cm LVPWd: 0.93 0.7-1.1 cm LA Diam: 3.60 2.7-3.8/3.0-4.0 cm LAIDs Index: 1.67 1.5-2.3 cm/m2 LV Mass: 190.44 67-162/88-224 g LV Mass Index: 88.58 43-95/49-115 g/m2 LVOT Diam: 2.40 3.0+(-)1.3 cm 2D Systolic Function EF 4C: 52.30 >55% EF 2C: 60.10 >55% EF BiP: 57.20 >55% Mitral Valve MV Pk E: 0.56 MV PK A: 0.95 MV Decel Time: 357.00 E/A: 0.60 E'Lateral: 8.49 E'Medial: 6.09 E/E' Med: 9.10 E/E' Lat: 6.60 PHT: 104.00 MVA PHT: 2.12 Decel Carlton: 1.56 Aortic Valve AoV Pk Leroy: 1.32 AoV Mn Leroy: 0.82 AoV VTI: 0.24 AoV Pk Grad: 7.00 Aov Mn Grad: 3.00 LAXMI Cont.VTI: 3.17 LVOT LVOT Pk Leroy: 0.88 LVOT Mn Leroy: 0.60 LVOT VTI: 0.17 LVOT Pk Grad: 3.00 LVOT Mn Grad: 2.00 LVOT Diam: 2.40 LVOT Area: 4.52 Diastolic Function MV Pk E: 0.56 MV Pk A: 0.95 E/A: 0.60 E'Medial: 6.09 E/E' Med: 9.10 E' Laterial: 8.49 E/E' Lat: 6.60 Right Ventricle TAPSE (mm): 23.40 TVS' Leroy: 10.20 Tricuspid Valve TR Pk Leroy: 1.80 TR Pk Grad: 13.00 Great Vessels Aorta Sinus of Valsalva: 3.30 2.0-3.[address] Ridge: 2.58 1.7-3.4 cm Ao Asc: 3.50 2.1-3.4 cm Updated in Other Vendor System with Status of Final Bryant Rome MD electronically signed on 01/17/2025 3:27:26 PM with status of Final
--- OUTSIDE RECORDS SUMMARY | 2025-01-16 16:32 | XMS_ITS | Encounter Summary ---
Author Organization [facility] Address [address] [facility] 200 [place] [address] Phone Care Team Providers Care Director Child Name Role Phone Winifred Herrera MD Primary Care Provider [facility] horn Encounter Details Date Type Department Care Team (Late st Contact Info) Description 03/17/2023 Telephone [facility] [address] [facility] [address] [place] [address] Susan Wolff Social History Tobacco [...] Susan Wolff - 03/17/2023 9:22 AM EDT [facility] called tot relay med changes on this mutual PT. D/C hydrochlorothiazide Insulin Lantus 28 units once a day Insulin Lispro 6 units lunch, 8 units for dinner documented in this encounter Plan of Treatment Upcoming Encounters Date Type Department Care Team (Late st Contact Info) Description 02/05/2025 Orders Only [facility] [address] [place] [phone] Maged Ricardo MD 0983 [facility] [address] [place] [address] Stage 3b chronic kidney disease (HCC); Type 2 diabetes mellitus with diabetic chronic kidney disease (HCC); Hypertensive disorder 03/26/2025 3:30 PM EDT Office Visit [facility] [address] [place] [address] Maged Ricardo MD 7[address] [facility] [address] [place] [phone] documented as of this encounter Visit Diagnoses Not on filedocumented in this encounter Care Teams Director Child Relationship Specialty Start Date End Date Winifred Herrera MD PCP - General 10/28/20 documented as of this encounter
--- OUTSIDE RECORDS SUMMARY | 2025-01-16 16:32 | XMS_ITS | Encounter Summary ---
Author Organization [employer] Address 75 [facility] 7t [place] [address] Care Team Providers Care Managing Principal Name Role Phone Sharon, Winifred ADAME Primary Care Provider [phone] Kyleigh Hyman PharmD Unavailable Maged Ricardo MD Unavailable [phone] Teodoro, Chayo OD Unavailable [phone] Melvin Palma Unavailable Encounter Details Date Type Department Care Team (Late st Contact Info) Description 03/08/2023 Orders Only [facility] 230 [place], [place] [phone] Temitope Lo MD [address] [place], [place] [phone] Social History Tobacco Use Types Packs/Day Years [...] Care Team (Late st Contact Info) Description 01/18/2025 10:45 AM EDT Office Visit [facility] [address] [place] [address] Winifred Herrera MD [address] [place] [address] 02/02/2025 1:00 PM EDT Medication Management [facility] [address] [place] [address] Piers-Darlin Weisssa, PharmD [address] [place] [address] documented as of this encounter Goals Goal Patient Goal Type Associated Problems Recent Progress Patient-Stated? Author Blood Pressure < 140/90 Blood Pressure 130/70(2024 10:32 AM EDT) No Piers-Gambl e, Kyleigh, PharmD Hemoglobin A1c < 7 Result Component 8.2( 10:11 AM EDT) No Randys-Gambl e, Kyleigh, PharmD documented as of this [...] PM EDT Narrative 03/31/2023 4:58 PM EDT ?[facility] ?[address] ?[place] [address] ?XRay Report ? Signed ? Patient: Jourdan Macias ?MR#: [id number] ? : 1955 ?Acct:[id number] ? Age/Sex: 67 / M ?ADM Date: 03/31/23 ? Loc: HO.HHCX ? Attending Dr: Ruth Bland MD ? Ordering Physician: Ruth Bland MD ?? Date of Service: 03/31/23 ?? Procedure(s): XR wrist RT w scaphoid ?? Accession Number(s): [id number] ? cc: Ruth Bland MD ? EXAMINATION: [...] signed by Stepan Doyle MD in OV> ?03/31/235 ? DD/ 1544 ? TD/TT: ? Ironer Or Presser: VILLEGAS ? Procedure Note Tawnya, Adrian - 04/14/2023 [facility] [address] [facility] [place] [address] XRay Report Signed Patient: Jourdan MaciasMR#: [id number] : 4Acct:[id number] Age/Sex: 67 / MADM Date: 03/31/23 Loc: HO.HHCX Attending Dr: Ruth Bland MD Ordering Physician: Ruth Bland MD Date of Service: 03/31/23 Procedure(s): XR wrist RT w scaphoid Accession Number(s): [id number] cc: Ruth Bland MD EXAMINATION: XR WRIST, [...] in OV> 03/31/23 1655 DD/ 1544 TD/TT: Ironer Or Presser: VILLEGAS [facility] External Provider IMG XR PROCEDURES Final Result * XR Ankle 3+ Views Left (03/31/2023 3:44 PM EDT) Anatomical Region Laterality Modality Lower Extremities, Ankle Left Radiogr aphic Imaging 03/31/2023 3:44 PM EDT Narrative 03/31/2023 4:51 PM EDT ?[facility] ?[address] ?[place] [address] ?XRay Report ? Signed ? Patient: Macias,Jourdan ?MR#: [id number] ? : 1955 ?Acct:[id number] ? Age/Sex: 67 / M ?ADM Date: 06/14/23 ? Loc: HO.HHCX ? Attending Dr: Ruth Bland MD ? Ordering Physician: Ruth Bland MD ?? Date of Service: 03/31/23 ?? Procedure(s): XR ankle LT min 3V ?? Accession Number(s): [id number] ? cc: Ruth Bland MD ? EXAMINATION: [...] 1649 ? DD/ 1544 ? TD/TT: ? Ironer Or Presser: VILLEGAS ? Procedure Note Adrian Bowling - 04/14/2023 [facility] [address] [place] [address] XRay Report Signed Patient: Jourdan Macias#: [id number] : 4Acct:[id number] Age/Sex: 67 / MADM Date: 03/31/23 Loc: HO.HHCX Attending Dr: Ruth Bland MD Ordering Physician: Ruth Bland MD Date of Service: 03/31/23 Procedure(s): XR ankle LT min 3V Accession Number(s): [id number] cc: Ruth Bland MD EXAMINATION: XR ANKLE, [...] in OV> 03/31/23 1649 DD/ 1544 TD/TT: Ironer Or Presser: VILLEGAS [facility] External Provider IMG XR PROCEDURES Final Result documented in this encounter Visit Diagnoses Not on filedocumented in this encounter Additional Health Concerns Assessment Noted Time PHQ-9 Depression Total Score: 0 02/11/20 10:41 AM EDT documented as of this encounter Care Teams Managing Principal Relationship Specialty Start Date End Date Sharon, MD Winifred [address] [place] [address] PCP - General Family Medicine 10/18/18 Kyleigh Hyman PharmD [address] [place] [address] Pharmacist Internal Medicine 02/15/23 Maged Ricardo MD [address] [facility] 200 [place] [address] Nephrology 12/19/24 Chayo Valerio OD [address] [place] [address] Optometry 12/19/24 Melvin Palma [address] [place] [address] Ophthalmology 01/01/25 documented as of this encounter
--- OUTSIDE RECORDS SUMMARY | 2025-01-16 16:32 | XMS_ITS | Encounter Summary ---
Author Organization [facility] Address [address] [facility] [address] [facility] 200 [place] [address] Phone Care Team Providers Care Detention Sergeant Name Role Phone [place], Winifred Wilson MD Primary Care Provider [facility] [email or web address] Encounter Details Date Type Department Care Team (Late st Contact Info) Description 01/08/2021 Orders Only [facility] [address] [facility] [facility] 200 [place] [address] ProviderJoe MD [address] [place] [address] Social History Tobacco Use Types Packs/Day Years [...] Only [facility] [address] [place] [phone] Maged Ricardo MD [address] [address] Stage 3b chronic kidney disease (HCC); Type 2 diabetes mellitus with diabetic chronic kidney disease (HCC); Hypertensive disorder 03/26/2025 3:30 PM EDT Office Visit [facility] [address] [place] [phone] Maged Ricardo MD [address] [address] documented as of this encounter Procedures Procedure Name Priority Date/Time Associated Diagnosis Comments EXT RESULT ENTRY Routine 01/08/2021 documented in this encounter Results * EXT RESULT ENTRY (01/08/2021) us Historical Provider LAB BLOOD ORDERABLES Martha l Result documented in this encounter Visit Diagnoses Not on filedocumented in this encounter Care Teams Detention Sergeant Relationship Specialty Start Date End Date Sharon, Winifred Wilson MD PCP - General 10/28/20 documented as of this encounter
--- OUTSIDE RECORDS SUMMARY | 2025-01-16 16:32 | XMS_ITS | Encounter Summary ---
Author Organization [employer] Address [address] [facility] 7t [place] [address] Care Team Providers Care Enrollment Services Vice President Name Role Phone Winifred Herrera MD Primary Care Provider Kyleigh Hyman PharmD Unavailable Maged Ricardo MD Unavailable [phone] Chayo Valerio OD Unavailable [phone] Melvin Palma Unavailable Reason for Visit * Reason Onset Date Comments pre-op 12/26/2024 chartprep 12/26/2024 Encounter Details Date Type Department Care Team (Late st Contact Info) Description 12/26/2024 Telephone [facility] MEDICINE [address] [place], [place] [phone] Winifred Herrera MD [address] [place], [place] [phone] pre-op; chartprep Social History Tobacco Use Types [...] encounter Miscellaneous Notes * Telephone Encounter - Jose Miranda - 01/16/2025 1:42 PM EDT TC placed to pt agreed to pre-op on 01/[address] Sharon Yanes Detailed Vm with facility * Telephone Encounter - Renuka Roew MA - 12/26/2024 1:27 PM EDT ..Chart [...] name: Dr. Melvin Palma MD Facility name: [facility] Surgeon's office number: [phone] Surgeon's office fax number: [phone] Contact name (person you spoke with): Rocio Last office note from surgeon requested: No Send Message to Darlin Cherry and Jose Miranda documented in this encounter Plan of Treatment Upcoming Encounters Date Type Department Care Team (Late st Contact Info) Description 01/18/2025 10:45 AM EDT Office Visit [facility] MEDICINE [address] [place] [phone] Winifred Herrera MD [address] [place] [phone] 02/02/2025 1:00 PM EDT Medication Management [facility] [address] [place] [phone] Kyleigh Hyman PharmD [address] [place] [phone] documented as of this encounter Goals Goal Patient Goal Type Associated Problems Recent Progress Patient-Stated? Author Blood Pressure < 140/90 Blood Pressure 130/70(2024 10:32 AM EDT) No Ranyds-Gambl e, Kyleigh, PharmD Hemoglobin A1c < 7 Result Component 8.2( 10:11 AM EDT) No Randys-Kyleigh Mason, PharmD documented as of this encounter Visit Diagnoses Not on filedocumented in this encounter Additional Health Concerns Assessment Noted Time PHQ-9 Depression Total Score: 0 06/28/20 24 3:55 PM EDT documented as of this encounter Care Teams Enrollment Services Vice President Relationship Specialty Start Date End Date Winifred Herrera MD [address] [place] [address] [phone] PCP - General Family Medicine 10/18/18 Kyleigh Hyman, PharmD [address] [place] [address] Pharmacist Internal Medicine 02/15/23 Maged Ricardo MD [address] [place] [address] Nephrology 12/19/24 Chayo Valerio OD [address] [place] [address] Optometry 12/19/24 Melvin Palma [address] [place] [address] Ophthalmology 01/01/25 documented as of this encounter
--- OUTSIDE RECORDS SUMMARY | 2025-01-16 16:32 | XMS_ITS | Encounter Summary ---
Author Organization [employer] Address [address] [facility] [address] [place] [address] Care Team Providers Care Photogrammetric Engineer Name Role Phone Winifred Herrera MD Primary Care Provider [phone] Kyleigh Hyman PharmD Unavailable [phone] Maged Ricardo MD Unavailable [phone] Chayo Valerio OD Unavailable Melvin Palma Unavailable Reason for Visit * Reason Onset Date Comments Glucose Device 02/12/2023 Appointment Confirmation 02/12/2023 Encounter Details Date Type Department Care Team (Late st Contact Info) Description 02/12/2023 Telephone [facility] MEDICINE [address] [place], [place] [phone] Winifred Herrera MD [address] [place], [place] [phone] Glucose Device; Appointment Confirmation Social History Tobacco [...] Sharon followup of bilateral leg swelling in [facility] 03/02. No answer, left V/M. Will retask to swapna kerr for second attempt * Telephone Encounter - Tejal Kenny RN - 02/26/2023 10:45 AM EDT ----- Message from Winifred Herrera MD sent at 02/23/2023 7:45 AM EDT ----- ----- Message ----- From: Jamilah Goddard RN Sent: 02/22/2023 4:49 PM EDT To: Winifred Herrera MD Please review message from [facility] provider. No available appts on the team for the next week. Please advise team nurses if pt can be scheduled with you on one of the days you are on [facility]. ----- Message ----- From: SUE Preciado Sent: 02/22/2023 3:42 PM EDT To: [place] [facility] Team Nurses Please schedule followup [...] Winifred Herrera MD Please review message from [facility] provider. No available appts on the team for the next week. Please advise team nurses if pt can be scheduled with you on one of the days you are on [facility]. ----- Message ----- From: SUE Preciado Sent: 02/22/2023 3:42 PM EDT To: [facility] [facility] [place] Team Nurses Please schedule followup of bilateral leg swelling with PCP in 1 week, ordered labs as well to assess secondary causes. Thank you * Telephone Encounter - Collins Lam - 02/12/2023 4:22 PM EDT Tc from pt requesting a new script for Continuous Blood Gluc Compilation Clerk (FreeStyle [place] [address] [place]) device. Pt states that he lost previous one today after appt of CD[facility]. Please contact pt at [phone] documented in this encounter Plan of Treatment Upcoming Encounters Date Type Department Care Team (Late st Contact Info) Description 01/18/2025 10:45 AM EDT Office Visit [address] [address] Winifred Herrera MD [address] [place] [phone] 02/02/2025 1:00 PM EDT Medication Management [address] [address] Kyleigh Hyman, PharmD [address] [place] [address] documented as of this encounter Goals Goal Patient Goal Type Associated Problems Recent Progress Patient-Stated? Author Blood Pressure < 140/90 Blood Pressure 130/70(2024 10:32 AM EDT) No Kyleigh Ramos PharmD Hemoglobin A1c < 7 Result Component 8.2( 10:11 AM EDT) No Kyleigh Ramos PharmD documented as of this encounter Visit Diagnoses Diagnosis Type 2 diabetes mellitus with other specified complication, unspecified whether terminal clerk insulin use ([facility]) documented in this encounter Additional Health Concerns Assessment Noted Time PHQ-9 Depression Total Score: 0 02/11/20 10:41 AM EDT documented as of this encounter Care Teams Photogrammetric Engineer Relationship Specialty Start Date End Date Winifred Herrera MD [address] [place] [address] PCP - General Family Medicine 10/18/18 Kyleigh Hyman, PharmD [address] [place] [address] Pharmacist Internal Medicine 02/15/23 Maged Ricardo MD [address] [facility] [address] [facility] [address] [place] [address] Nephrology 12/19/24 Chayo Valerio OD [address] [place] [phone] Optometry 12/19/24 Melvin Palma [address] [place] [address] Ophthalmology 01/01/25 documented as of this encounter
--- OUTSIDE RECORDS SUMMARY | 2025-01-16 16:32 | XMS_ITS | Clinical Summary ---
Author Organization [facility] Address [address] [place] [address] [place] [address] Phone Care Team Providers Care Change Control Analyst Name Role Phone Winifred Herrera MD Primary [...] EVERY EVENING 30 tablet 11 08/06/2023 Active Finerenone (Kerendia) 10 MG tablet Take 10 mg by mouth 1 (one) time each day 90 tablet 01/08/2025 5 Active Active Problems Problem Noted Date Diagnosed Date Stage 3b chronic kidney disease 01/03/2024 Stage 3b chronic kidney disease 08/16/2023 Type 2 diabetes mellitus wit h diabetic chronic kidney disease 08/16/2023 Patient encounter status 04/14/2023 023 Overview (08/16/2023): -next physical exam due after 07/28/2024 -eye care facilitated by [facility] next appointment in April 2023. -dental home is Last Assessment & Plan: -next physical exam due after 07/28/2024 -eye care facilitated by [facility] next appointment in April 2023. -dental [...] BP control Type 2 diabetes mellitus 10/18/2003 Encounters Date Type Department Care Team Description 01/08/2025 2:15 PM EDT Office Visit [facility] [address] [place] [address] Maged Ricardo MD Stage 3b chronic kidney disease (HCC) (Primary Dx); Type 2 diabetes mellitus with diabetic chronic kidney disease (HCC); Hypertensive disorder from Last 3 Months Immunizations Name Administration Dates Next Due Hepatitis [...] Sign Reading Time Taken Comments Blood Pressure 140/82 01/08/2025 2:18 PM EDT Pulse 78 01/08/2025 2:18 PM EDT Temperature - - Respiratory Rate - - Oxygen Saturation 99% 01/08/2025 2:18 PM EDT Inhaled Oxygen Concentration - - Weight 110 kg (243 lb) 01/08/2025 2:18 PM EDT Height 167.6 cm (5' 6 ) 09/20/2020 12:00 PM EST Body Mass Index 39.22 09/20/2020 12:00 PM EST Plan of Treatment Upcoming Encounters Date Type Department Care Team (Late st Contact Info) Description 02/05/2025 Orders Only [facility] [address] [place] [address] Maged Ricardo MD [address] [facility] [address] [place] [address] Stage 3b chronic kidney disease (HCC); Type 2 diabetes mellitus with diabetic chronic kidney disease (HCC); Hypertensive disorder 03/26/2025 3:30 PM EDT Office Visit [facility] [address] [place] [address] Maged Ricardo MD [address] [address] Health Maintenance Due Date Last Done Comments [...] 06/28/2024, , 01/30/2021, Additional history exists Insurance [facility] Care Teams Change Control Analyst Relationship Specialty Start Date End Date [place], Winifred Wilson MD PCP - General 10/28/20
--- OUTSIDE RECORDS SUMMARY | 2025-01-16 16:32 | XMS_ITS | Clinical Summary ---
Author Organization [employer] Address [address] [facility] 7t [place] [address] Care Team Providers Care Food Trades Assistants Name Role Phone Sharon, Winifred ADAME Primary Care Provider + [phone] Kyleigh Hyman PharmD Unavailable [phone] Maged Ricardo MD Unavailable [phone] Chayo Valerio OD Unavailable [phone] Melvin Palma Unavailable Allergies No known [...] 11 024 Active Lancets (OneTouch Delica Plus [id number]) miscIndications :Type 2 diabetes mellitus with stage [...] unspecified whether stage 3a or 3b CKD ([facility]/HCC) USE DIRECTED FIVE TIMES DAILY 100 each [...] unspecified whether stage 3a or 3b CKD ([facility]) Inject subcutaneously twice daily 14 units before [...] unspecified whether stage 3a or 3b CKD (CMS/[facility]) Inject 38 units subcutaneously once daily increased 06/28/24 15 mL 3 025 Active Continuous Glucose Driver License Reviewing Officer (FreeStyle Russell 3 Presho) device 1 each Once per day. Use [...] failure or extremes of BG 100 each 11 025 2025 Active atorvastatin (Lipitor) 40 MG tabletIndicatio ns:Type 2 diabetes mellitus with other diabetic kidney complication, with long-term current use of insulin (CMS/HCC) TAKE 1 TABLET BY MOUTH AT BEDTIME 90 tablet 3 025 Active Dulaglutide (Trulicity) 1.5 MG/0.5ML solution auto-injectorIn dications:Type 2 diabetes mellitus with stage 3 chronic kidney disease, with long-term current use of insulin, unspecified whether stage 3a or 3b CKD (CMS/HCC) Inject 1.5 mg under the skin 1 (one) time per week. 2 mL 3 025 Active glucose 4 g chewable tabletIndicatio ns:Type 2 diabetes mellitus with stage 3 chronic kidney disease, with long-term current use of insulin, unspecified whether stage 3a or 3b CKD (CMS/HCC) Chew 4 tablets (16 g) if needed for low blood sugar. 50 tablet 11 025 2025 Active atorvastatin (Lipitor) 40 MG tabletIndicatio ns:Type 2 diabetes mellitus with other diabetic kidney complication, with long-term current use of insulin (CMS/HCC) TAKE 1 TABLET BY MOUTH AT BEDTIME 90 tablet 3 024 2024 Discontinued melatonin 3 MG tablet TAKE 1 TO 2 TABLETS BY MOUTH AT BEDTIME NEEDED FOR SLEEP 024 2024 Discontinued(M ed list cleanup (will not trigger notification to Pharmacy)) Dulaglutide (Trulicity) 0.75 MG/0.5ML solution auto-injectorIn dications:Type [...] be different from the original. Enrolled in [facility] DM and [facility] HTN clinic with Kyliegh Hyman, BradenD, [facility] Problem Noted Date Diagnosed Date Cardiac risk [...] due after 12/27/25 -eye care facilitated by [facility] and Eye and [facility], seen 12/2024 -has dentures -health care proxy 06/28/24 Assessment & Plan (06/28/2024 3:34 PM EDT): -next physical exam due after 07/28/2024 -eye care facilitated by [facility] next appointment in April 2023. -only has dentures. -health care proxy 06/28/24 Assessment & Plan (07/28/2023 3:38 PM EDT): -next physical exam due after 07/28/2024 -eye care facilitated by [facility] next appointment in April 2023. -dental home is Assessment & Plan (04/14/2023 4:09 PM EDT): -next physical exam due after -eye care facilitated by [facility] next appointment in April 2023. -dental [...] kidney disease 10/18/2003 Overview (01/01/2025): Re-enrolled in [facility] 07/14/24 Lab Results Component Value Date HGBA1C [...] 2 months ago 06/28/24; requested retrial to CD RP and trulicity 0.75mg once weekly restarted 08/11/24 -SMBG via Dexcom G7 -Given lancets to test BGL 06/28/24 -Saw [facility] Program with our PharmD, DRU 12/22/24, Plan: - Increase trulicity to 1.5mg once weekly - Decrease lantus to 38 units once daily - Refill for glucose tablets provided - Continue focus on meal portions and healthy diet and lifestyle Assessment & Plan (12/27/2024 1:19 PM EDT): Re-enrolled in [facility] 07/14/24 Lab Results Component Value Date HGBA1C 8.2 (A) 12/27/2024 HGBA1C 8.0 (A) 12/15/2024 HGBA1C 8.4 (H) 07/26/2024 Lab Results Component Value Date MICROALBUR 624.0 07/26/2024 CREATININE 1.46 (H) 07/26/2024 -Clem/Arb: lisinopril 40mg -Statin therapy: atorvastatin 40mg -Diabetic eye exam: Seen by [facility] eye care last done 12/2021. Referral done 04/14/2023. -Diabetic foot exam: Done12/27/24 -Continue lifestyle modifications -metformin discontinued due to CKD in past -Lantus and Humalog titrated by CD Assessment & Plan (06/28/2024 3:44 PM EDT): Diabetes is not controlled, A1C worsened compared to last. Lab Results Component Value Date HGBA1C 10.0 (A) 06/28/2024 HGBA1C 9.2 (A) 02/22/2024 HGBA1C 10.3 (A) 07/28/2023 Lab Results Component Value Date MICROALBUR 9.4 12/15/2021 CREATININE 1.57 (H) 03/09/2023 -Clem/Arb: lisinopril 40mg -Statin therapy: atorvastatin 40mg -Diabetic eye exam: Seen by [facility] eye care last done 12/2021. Referral done [...] atorvastatin 40mg -Diabetic eye exam: Seen by [facility] eye care last done 12/2021. Referral done [...] atorvastatin 40mg -Diabetic eye exam: Seen by [facility] eye care last done 12/2021. Referral done [...] up CDTM as schdueled. Daytime somnolence 02/10/2023 3 Overview (02/10/2023): Melatonin 1mg given. Assessment & [...] Encounters Date Type Department Care Team Description 01/15/[address] [facility] MEDICINE [address] [place] [phone] Winifred Herrera MD Pre-op Exam 01/03/2025 Orders Only [facility] MEDICINE [address] [place] [phone] Winifred Herrera MD 12/29/[address] [address] Winifred Herrera MD Appointment Request 12/27/2024 10:15 AM EDT Office Visit [address] [address] Winifred Herrera MD Other specified health status (Primary Dx); Type 2 diabetes mellitus with stage 3 chronic kidney disease, with long-term current use of insulin, unspecified whether stage 3a or 3b CKD (CMS/HCC); Primary hypertension; Recurrent major depressive episodes, moderate (CMS/[facility]); Class 2 severe obesity due to excess calories with serious comorbidity and body mass index (BMI) of 38.0 to 38.9 in adult ([facility]); Exercise counseling; Dietary counseling; Stage 3b chronic kidney disease (CMS/[facility]); Encounter for immunization; Decreased cardiac ejection fraction 12/27/2024 Travel 12/26/[address] [address] Winifred Herrera MD pre-op; chartprep 12/22/2024 Travel 12/19/2024 Orders Only [address] [address] Winifred Herrera MD 12/18/[address] [address] Winifred Herrera MD Type 2 diabetes mellitus with other diabetic kidney complication, with long-term current use of insulin ([facility]) 12/15/2024 Travel 12/15/2024 Patient Outreach [address] [address] Winifred Herrera MD Pre-visit Planning (Pre-visit planning - LVM ) 12/11/2024 Refill [facility] [address] [place] [address] Winifred Herrera MD Type 2 diabetes mellitus with stage 3 chronic kidney disease, with long-term current use of insulin, unspecified whether stage 3a or 3b CKD (CMS/HCC) 11/21/[address] [address] Winifred Herrera MD Call Back Request 11/17/[address] [facility] MEDICINE [address] [place], [place] [phone] Latoya Aparicio ANP Depressive disorder 11/06/[address] [facility] MED[facility]INE [address] [place] [address] Kyleigh Hyman, PharmD Type 2 diabetes mellitus with stage 3 chronic kidney disease, with long-term current use of insulin, unspecified whether stage 3a or 3b CKD ([facility]) 10/27/[address] [facility] MEDICINE [address] [place], [place] [phone] Kyleigh Hyman, PharmD 10/26/[address] [facility] MEDICINE [address] [place] [address] Haroon Goddard MA December recall 10/25/[address] [facility] MED[facility]INE [address] [place], [place] [phone] Winifred Herrera MD Vitamin D deficiency from [...] 01/18/2025 10:45 AM EDT Office Visit [facility] MEDICINE [address] [place] [address] Winifred Herrera MD [address] [place] [address] 02/02/2025 1:00 PM EDT Medication Management [facility] MEDICINE [address] [place] [phone] Kyleigh Hyman, PharmD [address] [place] [address] Health Maintenance Due Date Last Done Comments CT Colonography 1954 FIT DNA/Cologuard 1954 FIT 1954 FOBT 1955 Sigmoidoscopy 1954 Diabetes: Hemoglobin A1C 03/29/2025 025, 12/15/2024, 07/26/2024, Additional history exists Depression Screening 06/28/2025 06/28/2024, 06/28/20 24 SDOH Screening 06/28/2025 06/28/2024 Lipid Panel 07/26/2025 07/26/2024, 04/1 , 10/13/2021, Additional history exists Eye Exam 09/01/2025 [...] Procedure Name Priority Date/Time Associated Diagnosis Comments ALBUMIN, RANDOM URINE W/CREATININE Routine 01/03/2025 2:23 PM EDT BASIC METABOLIC PANEL Routine 01/03/2025 2:23 PM EDT POCT GLUCOSE Routine 12/27/2024 10:12 AM EDT Type 2 diabetes mellitus with stage 3 chronic kidney disease, with long-term current use of insulin, unspecified whether stage 3a or 3b CKD (CMS/HCC) POCT GLYCOSYLATED HEMOGLOBIN (HGB A1C) Routine 12/27/2024 [...] Relevant to Health Maintenance Results * (ABNORMAL) Albumin, Random Urine W/Creatinine (01/03/2025 2:23 PM EDT) Creatinine, Urine 79.71 mg/dL [facility] Microalbumin Urine 427.0 mg/L [facility] Microalbum Creatinine Ratio Ur 535.6(H) <30 ug/mg cr [facility] Comment:Albumin/Creatinine R atio Reference Ranges: Normal: < 30 ug/mg creatinine Microalbuminuria: 30 - 300 ug/mg creatinineClinical Albuminuria: > 300 ug/mg creatinine 01/03/2025 2:23 PM EDT 01/03/2025 4:18 PM EDT Winifred Herrera MD LAB URINE ORDERABLES Final Result Performing Organization Address [facility] de Phone Number [facility] [address] [place] [phone] * (ABNORMAL) Basic Metabolic Panel (01/03/2025 2:23 PM EDT) Sodium 140 135 - 145 mmol/L [facility] Potassium 4.2 3.3 - 5.1 mmol/L [facility] Chloride 110(H) 96 - 108 mmol/L [facility] Carbon Dioxide 23 22 - 29 mmol/L [facility] Anion Gap 11(L) 12 - 20 [facility] Urea Nitrogen (BUN) 28(H) 9 - 16 mg/dL [facility] Creatinine, Serum 1.42(H) 0.5 - 1.4 mg/dL [facility] Estimated Glomerular Filt Rate 49 [facility] Comment:Chronic Kidney Disea se: Estimated GFR < 60 mL/min/1.68t2Cvelwh Kidney Disease: Estimated GFR < 15 mL/min/1.73m2 Glucose 177(H) 60 - 115 mg/dL [facility] Calcium 9.5 8.4 - 10.2 mg/dL [facility] 01/03/2025 2:23 PM EDT 01/03/2025 4:08 PM EDT Winifred Herrera MD LAB BLOOD ORDERABLES Final Result Performing Organization Address [facility] Co de Phone Number [facility] [address] [place] [phone] * POCT glucose manually resulted (12/27/2024 10:12 AM EDT) Glucose Blood, POC 175 60 - 200 mg/dL QC Media Lot # [id number] Lot# Expiration Date [id number] Blood Capillary blood specimen / Unknown 12/27/2024 10:12 AM EDT Winifred Herrera MD POINT OF CARE TEST ENTER/E DIT ORDERABLES Final Result * (ABNORMAL) POCT glycosylated hemoglobin (Hgb A1c) (12/27/2024 10:11 AM EDT) Pathologist [facility] Hemoglobin A1C 8.2(A) 4.0 - 6.0 % QC Media Lot # [id number] Lot# Expiration Date Blood Capillary blood specimen / Unknown 12/27/2024 10:11 AM EDT Winifred Herrera MD POINT OF CARE TEST ENTER/E DIT ORDERABLES Final Result * (ABNORMAL) POCT A1C (12/15/2024 3:32 PM EST) Pathologist [facility] Hemoglobin A1C 8.0(A) 4.0 - 6.0 % QC Media Lot # [id number] Lot# Expiration Date Blood 12/15/2024 3:32 PM EST Winifred Herrera MD POINT OF CARE TEST ENTER/E DIT ORDERABLES Final Result * Lipid Panel, Standard (07/26/2024 10:13 AM EDT) Triglycerides 74 <150 mg/dL [facility] Comment:Desirable Triglyceri de: less than 150 mg/dLBorderline High Triglyceride 150-199 mg/dLHigh Triglyceride: 200-499 mg/dLVery High Triglyceride: greater than or equal to 5OO mg/dL Cholesterol 98 <200 mg/dL [facility] Comment:Desirable Cholestero l: less than 200 mg/dLBorderline High Cholesterol: 200-239 mg/dLHigh Cholesterol: greater than 239 mg/dL LDL Cholesterol Calculated 42 <100 mg/dL [facility] Comment:Desirable LDL: less than 100 mg/dLNear Optimal/Above Optimal LDL: 110- 129 mg/dLBorderline High LDL: 130-159 mg/dLHigh LDL: 160-189 mg/dLVery High LDL: greater than or equal to 190 mg/dL HDL Cholesterol 42 >40 mg/dL [facility] Comment:Desirable HDL: great er than 40 mg/dL Note: This HDL assay may give artificially low results in patients with liver disease. Blood Venous blood specimen / Unknown 07/26/2024 10:13 AM EDT 07/26/2024 11:34 AM EDT Winifred Herrera MD LAB BLOOD ORDERABLES Final Result Performing Organization Address City/[facility]/ZIP Co de Phone Number [facility] [address] [place] [phone] * Hepatitis C Antibody with Reflex to HCV, RNA, Quantitative, Real-Time PCR (03/02/2023 3:17 PM EDT) Hepatitis C Antibody NON-REACT PHILIPP NON-REACT PHILIPP [employer] [facility]Lynx[facility] Solutionst Index 0.16 <1.00 [employer] [place] [facility] Comment: HCV antibody was non-reactive. There is no laboratory evidence of HCV infection. In most cases, no further action is required. However, if recent HCV exposure is suspected, a test for HCV RNA (test code 55372) is suggested. For additional information please refer to http://education.TicketForEvent.Aseptia/faq/FQI30r3 (This link is being provided for informational/ educational purposes only.) 03/02/2023 3:17 PM EDT 03/02/2023 3:17 PM EDT Narrative [facility] - 03/03/2023 8:57 AM EDT FASTING:NO FASTING: NO Winifred Herrera MD LAB BLOOD ORDERABLES Final Result [facility] [address] [facility], [place] [address] [employer] [place] [facility] [address] [place] [address] * Hm Colonoscopy (08/12/2017) Colonoscopy hyperplastic plyp Dr. Navarrete us Historical Provider MD HEALTH MAINTENANCE Final Result from Last 3 Months or Most Recently Relevant to Health Maintenance Insurance [facility] STANDARD * Guarantor: Jourdan Macias Account Type Relation to Patient Date of Phone Billing Address Personal/Family Self [address] [place] Advance Directives Documents on File Type Date Recorded Patient Night Filler Expl anation Advance Directives and Living Will 06/28/2024 Health Care Proxy 06/28/24 Care Teams Food Trades Assistants Relationship Specialty Start Date End Date Winifred Herrera MD [address] [place] [address] PCP - General Family Medicine 10/18/18 Kyleigh Hyman, BradenD [address] [place] [address] Pharmacist Internal Medicine 02/15/23 Maged Ricardo MD [address] [facility] [address] [phone] Nephrology 12/19/24 Chayo Valerio OD [address] [place] [address] Optometry 12/19/24 Melvin Palma [address] [place] [address] Ophthalmology 01/01/25
--- OUTSIDE RECORDS SUMMARY | 2025-01-16 16:32 | XMS_ITS | Encounter Summary ---
Author Organization [employer] Address [address] [facility] 7t [place] [address] Care Team Providers Care Air Traffic Control Equipment Repairer Name Role Phone Winifred Herrera MD Primary Care Provider + [phone] Kyleigh Hyman PharmD Unavailable Maged Ricardo MD Unavailable [phone] Chayo Valerio OD Unavailable [phone] Melvin Palma Unavailable Reason for Visit * Reason Onset Date Comments Pre-op Exam 01/15/2025 Encounter Details Date Type Department Care Team (Late st Contact Info) Description 01/15/2025 Telephone [facility] MEDICINE [address] [place], [place] [phone] Winifred Herrera MD [address] [place], [place] [phone] Pre-op Exam Social History Tobacco Use Types Packs/Day Years [...] Telephone Encounter - Jose Miranda - 01/16/2025 1:43 PM EDT Tc placed to pt agreed to pre-op on 01/[address] Herrera Detailed VM left to Facility * Telephone Encounter - Malinda Urbano - 01/15/2025 8:17 AM EDT Date of Surgery: Left Eye February 16, Right Eye March 02 Surgical procedure being done: Cataract Type of anesthesia: Topical Lab needed: No EKG: No Surgeon's name: Melvin Louie Facility name: [facility] Surgeon's office number: [phone] Ext [phone] Surgeon's office fax number: [phone] Contact name (person you spoke with): [place] Last office note from surgeon requested: Yes Send Message to Darlin Miranda documented in this encounter Plan of Treatment Upcoming Encounters Date Type Department Care Team (Late st Contact Info) Description 01/18/2025 10:45 AM EDT Office Visit [facility] MEDICINE [address] [place] [address] Winifred Herrera MD [address] [place] [address] 02/02/2025 1:00 PM EDT Medication Management [facility] [address] [place] [address] Kyleigh Hyman, PharmD [address] [place] [address] documented as of this encounter Goals Goal [...] documented as of this encounter Care Teams Air Traffic Control Equipment Repairer Relationship Specialty Start Date End Date Winifred Herrera MD [address] [place] [address] PCP - General Family Medicine 10/18/18 Kyleigh Hyman, PharmD [address] [place] [address] Pharmacist Internal Medicine 02/15/23 Maged Ricardo MD 100 [facility] [address] [place] [address] Nephrology 12/19/24 Chayo Valerio OD [address] [place] [address] Optometry 12/19/24 Melvin Palma [address] [place] [address] Ophthalmology 01/01/25 documented as of this encounter
--- OUTSIDE RECORDS SUMMARY | 2025-01-16 16:32 | XMS_ITS | Encounter Summary ---
Author Organization [employer] Address [address] [facility] 7t [place] [address] Care Team Providers Care Boomswing Operator Name Role Phone Winifred Herrera MD Primary Care Provider + [phone] Kyleigh Hyman PharmD Unavailable [phone] Maged Ricardo MD Unavailable [phone] Teodoro Chayo OD Unavailable [phone] Melvin Palma Unavailable Encounter Details Date Type Department Care Team (Late st Contact Info) Description 09/17/2023 Abstract [facility] MEDICINE [address] [place], [place] [phone] Winifred Herrera MD [address] [place], [place] [phone] Social History Tobacco Use Types Packs/Day Years [...] Description 01/18/2025 10:45 AM EDT Office Visit [facility] MEDICINE [address] [place] [phone] Winifred Herrera MD [address] [place] [address] 02/02/2025 1:00 PM EDT Medication Management [facility] MEDICINE [address] [place] [address] Kyleigh Hyman PharmD [address] [place] [phone] documented as of this encounter Goals Goal Patient Goal Type Associated Problems Recent Progress Patient-Stated? Author Blood Pressure < 140/90 Blood Pressure 130/70(2024 10:32 AM EDT) No Kyleigh Ramos, PharmD Hemoglobin A1c < 7 Result Component 8.2( 10:11 AM EDT) No Kyleigh Ramos, PharmD documented as of this encounter Procedures [...] documented as of this encounter Care Teams Boomswing Operator Relationship Specialty Start Date End Date Winifred Herrera MD [address] [place] [address] PCP - General Family Medicine 10/18/18 Kyleigh Hyman, BradenD [address] [place] [address] Pharmacist Internal Medicine 02/15/23 Maged Ricardo MD 100 [facility] 200 [place] [address] Nephrology 12/19/24 Chayo Valerio OD [address] [place] [address] Optometry 12/19/24 Melvin Palma [address] [place] [address] Ophthalmology 01/01/25 documented as of this encounter
--- OUTSIDE RECORDS SUMMARY | 2025-01-16 16:32 | XMS_ITS | Encounter Summary ---
Author Organization [employer] Address [address] [facility] 7t [place] [address] Care Team Providers Care Forging Machine Hand Name Role Phone Winifred Herrera MD Primary Care Provider [phone] Kyleigh Hyman PharmD Unavailable Maged Ricardo MD Unavailable Chayo Valerio OD Unavailable Melvin Palma Unavailable Encounter Details Date Type Department Care Team (Late st Contact Info) Description 11/02/2022 Abstract [facility] MEDICINE [address] [place] [phone] Winifred Herrera MD [address] [place] [address] [phone] Social History Tobacco Use Types Packs/Day Years [...] Description 01/18/2025 10:45 AM EDT Office Visit [facility]INE [address] [place] [phone] Winifred Herrera MD [address] [place] [address] 02/02/2025 1:00 PM EDT Medication Management [facility] [address] [place] [address] Kyleigh Hyman PharmD [address] [place] [address] documented as of this encounter Procedures Procedure Name Priority Date/Time Associated Diagnosis Comments COLONOSCOPY Routine 08/12/2017 documented in this encounter Results * Hm Colonoscopy (08/12/2017) Colonoscopy hyperplastic plyp Dr. Navarrete us Historical Provider HEALTH MAINTENANCE Final Result documented in this encounter Visit Diagnoses Not on filedocumented in this encounter Care Teams Forging Machine Hand Relationship Specialty Start Date End Date Winifred Herrera MD [address] [place] [address] PCP - General Family Medicine 10/18/18 Kyleigh Hyman PharmD [address] [place] [address] Pharmacist Internal Medicine 02/15/23 Maged Ricardo MD [address] [phone] Nephrology 12/19/24 Chayo Valerio OD [address] [place] [address] Optometry 12/19/24 Melvin Palma [address] [place] [address] Ophthalmology 01/01/25 documented as of this encounter
--- OUTSIDE RECORDS SUMMARY | 2025-01-16 16:32 | XMS_ITS | Encounter Summary ---
Author Organization [employer] Address [address] [place] [address] Care Team Providers Care Central Office Trouble Shooter Name Role Phone Solen, Winifred ADAME Primary Care Provider + [phone] Kyleigh Hyman PharmD Unavailable [phone] Maged Ricardo MD Unavailable [phone] Teodoro Chayo OD Unavailable [phone] Melvin Palma Unavailable Reason for Visit * Reason Comments Med Refill Encounter Details Date Type Department Care Team (Late st Contact Info) Description 07/07/2024 Refill [facility] [address] [place], [place] [phone] Kyleigh Hyman, PharmD [address] [place] [address] Social History Tobacco Use Types Packs/Day Years [...] Description 01/18/2025 10:45 AM EDT Office Visit [facility] [address] [place] [phone] Winifred Herrera MD [address] [place] [phone] 02/02/2025 1:00 PM EDT Medication Management [facility] [address] [place] [phone] Kyleigh Hyman PharmD [address] [place] [phone] documented as of this encounter Goals Goal Patient Goal Type Associated Problems Recent Progress Patient-Stated? Author Blood Pressure < 140/90 Blood Pressure 130/70(2024 10:32 AM EDT) No Randys-Kip john, Kyleigh, PharmD Hemoglobin A1c < 7 Result Component 8.2( 10:11 AM EDT) No Randys-Ronl Kyleigh john, PharmD documented as of this encounter Visit Diagnoses Not on filedocumented in this encounter Additional Health Concerns Assessment Noted Time PHQ-9 Depression Total Score: 0 06/28/20 24 3:55 PM EDT documented as of this encounter Care Teams Central Office Trouble Shooter Relationship Specialty Start Date End Date Winifred Herrera MD [address] [place] [address] PCP - General Family Medicine 10/18/18 Kyleigh Hyman, BradenD [address] [place] [address] Pharmacist Internal Medicine 02/15/23 Maged Ricardo MD [address] [phone] Nephrology 12/19/24 Chayo Valerio OD [address] [place] [phone] Optometry 12/19/24 Melvin Palma [address] [place] [address] Ophthalmology 01/01/25 documented as of this encounter
== END ==
LOC: HO.CARD 13:53
PROVIDERS: PCP Family Medicine; Visit Provider Family Medicine
DX: R93.1 Abnormal findings on diagnostic imaging of heart and coronary circulation (principal)
CPT/HCPCS: 93306; Q9957

== ENCOUNTER → 2025-01-16 13:56 | Outpatient (BNV) | payer MEDICARE, SELFPAY | PROVIDERS: PCP Family Medicine; Visit Provider Internal Medicine | DX: I34.81 Nonrheumatic mitral (valve) annulus calcification (principal) | CPT/HCPCS: 93306 ==

== ENCOUNTER 2025-03-06 15:03 | Outpatient (REF) | payer MEDICARE, SELFPAY ==
--- OUTSIDE RECORDS SUMMARY | 2025-03-06 16:09 | XMS_ITS | Clinical Summary ---
Author Organization [facility] Address [address] [place] [address] [place] [address] Phone Care Team Providers Care Disbursing Officer Name Role Phone Winifred Herrera MD [...] (one) time each day 90 tablet 01/08/2025 Active Dulaglutide (Trulicity) 3 MG/0.5ML solution auto-injector Inject 3 mg under the skin once a week 02/02/2025 Active Active Problems Problem Noted Date Diagnosed Date Stage 3b chronic kidney disease 01/03/2024 Stage 3b chronic kidney disease 08/16/2023 Type 2 diabetes mellitus wit h diabetic chronic kidney disease 08/16/2023 Patient encounter status 04/14/2023 023 Overview (08/16/2023): -next physical exam due after 07/28/2024 -eye care facilitated by [facility] next appointment in April 2023. -dental home is Last Assessment & Plan: -next physical exam due after 07/28/2024 -eye care facilitated by [facility] next appointment in April 2023. [...] Encounters Date Type Department Care Team Description 02/12/2025 Orders Only [facility] [address] [place] [address] [address] [place] [address] Barb Smith MA 02/05/2025 Orders Only [facility] [address] [place] [address] Maged Ricardo MD Stage 3b chronic kidney disease (HCC); Type 2 diabetes mellitus with diabetic chronic kidney disease (HCC); Hypertensive disorder 01/08/2025 2:15 PM EDT Office Visit [facility] [address] [place], [place] [phone] Maged Ricardo MD Stage 3b chronic kidney disease (HCC) (Primary Dx); Type 2 diabetes mellitus with diabetic chronic kidney disease (HCC); Hypertensive disorder from Last 3 Months Immunizations Immunization Administration Dates Next Due Hepatitis B 12/05/2014,09/03/2014,02/19/2014 [...] Care Team (Late st Contact Info) Description 03/26/2025 3:30 PM EDT Office Visit [facility] [address] [place] [phone] Maged Ricardo MD [address] [facility] [address] [place] [address] Health Maintenance Due Date Last Done Comments [...] age to complete this topic Pneumococcal Vaccine: 50+ Years Completed 03/08/2023, 09/03/2014, 11/04/2006 Pneumococcal Vaccine: Peds (0 to 5 Years) and At-Risk Patients (6 to 49 Years) Discontinued 03/08/2023, 09/03/2014, 11/04/2006 Influenza Vaccine Completed 06/28/2024, , 01/30/2021, Additional history exists Insurance [facility] Care Teams Disbursing Officer Relationship Specialty Start Date End Date Caroline, Winifred Wilson MD PCP - General 10/28/20
--- OUTSIDE RECORDS SUMMARY | 2025-03-06 16:09 | XMS_ITS | Clinical Summary ---
Author Organization [employer] Address [address] [facility] [address] [place] [address] Care Team Providers Care Fagoter Name Role Phone Winifred Herrera MD Primary Care Provider + [phone] Kyleigh Hyman PharmD Unavailable Maged Ricardo MD Unavailable [phone] TeodoroChayo julien OD Unavailable [phone] Melvin Palma Unavailable Allergies No known active allergies Medications Diclofenac Sodium 1 % gelIndications:C hronic shoulder pain, unspecified laterality APPLY TOPICALLY TO THE AFFECTED AREA(S) ONCE OR TWICE DAILY NEEDED FOR PAIN 100 g 3 09/01/20 23 Active fluticasone (Flonase) 50 MCG/ACT nasal sprayIndications :Seasonal allergies USE 1-2 SPRAYS IN EACH NOSTRIL ONCE DAILY NEEDED 16 g 11 02/28/20 24 Active Pentips 32G X 4 MM miscIndications: Type 2 diabetes mellitus with stage 3 chronic kidney disease, with long-term current use of insulin, unspecified whether stage 3a or 3b CKD (CMS/HCC) USE DIRECTED WITH LANTUS AND HUMALOG 100 each 11 04/26/20 24 Active Lancets (OneTouch Delica Plus Phufia32W) miscIndications: Type 2 diabetes mellitus with stage 3 chronic kidney disease, with long-term current use of insulin, unspecified whether stage 3a or 3b CKD (CMS/HCC) TEST BLOOD SUGAR 3 OR 4 TIMES PER DAY 100 each 06/28/20 24 Active Alcohol Swabs (Alcohol Prep) 70 % padsIndications: Type 2 diabetes mellitus with stage 3 chronic kidney disease, with long-term current use of insulin, unspecified whether stage 3a or 3b CKD ([facility]) USE DIRECTED FIVE TIMES DAILY 100 each 06/28/20 24 Active amLODIPine (Norvasc) 5 MG tabletIndication s:Primary hypertension Take 1 tablet (5 mg) by mouth Once per day. Dose decreased 06/28/24 30 tablet 11 06/28/20 24 025 Active lisinopril 40 MG tabletIndication s:Primary hypertension TAKE 1 TABLET BY MOUTH EVERY MORNING 90 tablet 3 09/18/20 24 Active D3 Super Strength 50 MCG (1999) capsuleIndicatio ns:Vitamin D deficiency TAKE 1 CAPSULE BY MOUTH EVERY MORNING 90 capsule 3 10/26/19 25 Active empagliflozin (Jardiance) 25 MGIndications:Ty pe 2 diabetes mellitus with stage 3 chronic kidney disease, with long-term current use of insulin, unspecified whether stage 3a or 3b CKD ([facility]) TAKE 1 TABLET BY MOUTH EVERY MORNING 90 tablet 3 11/08/19 25 Active PARoxetine (Paxil) 10 MG tabletIndication s:Depressive disorder TAKE 1 TABLET BY MOUTH EVERY MORNING 30 tablet 11 11/17/19 25 Active insulin glargine (Lantus SoloStar) 100 UNIT/ML penIndications:T ype 2 diabetes mellitus with stage 3 chronic kidney disease, with long-term current use of insulin, unspecified whether stage 3a or 3b CKD ([facility]) Inject 38 units subcutaneously once daily increased 06/28/24 15 mL 3 12/11/19 25 Active Continuous Glucose Bushel Worker (FreeStyle Russell 3 [place]) device 1 each Once per day. Use as directed for CGM 1 each 12/15/19 25 Active Continuous Glucose Sensor (FreeStyle Russell 3 Plus Sensor) [facility] Apply 1 every 15 days as directed for CGM 2 each 12/15/19 25 Active glucose blood (FreeStyle Precision Jese Test) test strip Use to test blood sugar 3 times daily in case of CGM failure or extremes of BG 100 each 12/15/19 25 026 Active atorvastatin (Lipitor) 40 MG tabletIndication s:Type 2 diabetes mellitus with other diabetic kidney complication, with long-term current use of insulin ([facility]) TAKE 1 TABLET BY MOUTH AT BEDTIME 90 tablet 3 12/20/19 25 Active glucose 4 g chewable tabletIndication s:Type 2 diabetes mellitus with stage 3 chronic kidney disease, with long-term current use of insulin, unspecified whether stage 3a or 3b CKD (CMS/HCC) Chew 4 tablets (16 g) if needed for low blood sugar. 50 tablet 11 12/23/19 25 026 Active Dulaglutide (Trulicity) 3 MG/0.5ML solution auto-injectorInd ications:Type 2 diabetes mellitus with other specified complication, unspecified whether long-term insulin use (CMS/HCC) Inject 3 mg under the skin every 7 (seven) days. 2 mL 3 02/03/20 25 Active Kerendia 10 MG tablet Take 10 mg by mouth Once per day. 01/09/20 25 025 Active ketorolac (Acular) 0.5 % ophthalmic solution PLACE 1 DROP IN THE AFFECTED EYE THREE TIMES DAILY STARTING 2 DAYS BEFORE YOUR PROCEDURE, THEN CONTINUE DIRECTED 01/25/20 25 Active melatonin 3 MG tablet TAKE 1 TO 2 TABLETS BY MOUTH AT BEDTIME NEEDED FOR SLEEP 12/27/19 25 Active insulin lispro (HumaLOG) 100 UNIT/ML injectionIndicat ions:Type 2 diabetes mellitus with stage 3 chronic kidney disease, with long-term current use of insulin, unspecified whether stage 3a or 3b CKD (CMS/HCC) Inject subcutaneously twice daily 14 units before lunch and 18 units before dinner. Do not use if skipping meal. 02/03/20 25 Active Active Problems Patient Care Coordination No te Formatting of this note migh t be different from the original. Enrolled in [facility] DM and [facility] HTN clinic with Kyleigh Hyman, BradenD, [facility] Problem Noted Date Diagnosed Date Preop examination 01/18/2025 Overview (01/18/2025): Patient is acceptable risk for surgery. Ok to proceed to operating room without further risk stratification. Assessment & Plan (01/18/2025 11:39 AM EDT): Patient is acceptable risk for surgery. Ok to proceed to operating room without further risk stratification. Decreased cardiac ejection fraction 01/18/2025 Overview (01/18/2025): Echo 01/16/25 Conclusions: - The left ventricular systolic function is mildly decreased. The visually estimated ejection fraction is between 45-50%. - No obvious valvular pathology seen on this study. Assessment & Plan (01/18/2025 11:24 AM EDT): Echo 01/16/25 Conclusions: - The left ventricular systolic function is mildly decreased. The visually estimated ejection fraction is between 45-50%. - No obvious valvular pathology seen on this study. Class 2 severe obesity due t o excess calories with serious comorbidity and body mass index (BMI) of 39.0 to 39.9 in adult 01/18/2025 Overview (01/18/2025): -Per nephrology note 01/08/25 recommending starting GLP-1(Ozempic), will discuss with [facility] with our PharmD, DRU and pt will have sooner follow-up in the nest month with them 01/18/25 Assessment & Plan (01/18/2025 11:36 AM EDT): -Per nephrology note 01/08/25 recommending starting GLP-1(Ozempic), will discuss with [facility] with our PharmD, DRU and pt will have sooner follow-up in the nest month with them 01/18/25 Dietary counseling 01/18/2025 Assessment & Plan (01/18/2025 11:34 AM EDT): Dietary Recommendations: Fruits, vegetables, whole grains, protein foods, and fat-free or low-fat dairy products are healthy choices. Eat different types of protein foods in your diet. This can include seafood, lean meats, poultry, beans, peas, lentils, nuts, seeds, soy products, and eggs. Limit foods and beverages higher in added sugars, saturated fat, and sodium. Exercise counseling 01/18/2025 Assessment & Plan (01/18/2025 11:34 AM EDT): Exercise Recommendations: At least 150 minutes of moderate-intensity physical activity per week, or an equivalent combination of moderate- and vigorous-intensity activity. Decreased hearing 01/18/2025 Overview (01/18/2025): Reports decreased hearing, desires audiology evaluation. -referred to audiology 01/18/25 Assessment & Plan (01/18/2025 11:33 AM EDT): Reports decreased hearing, desires audiology evaluation. -referred to audiology 01/18/25 Cardiac risk counseling 07/26/2024 Overview (07/26/2024): Calculated [...] due after 12/27/25 -eye care facilitated by [facility] and [facility], seen 12/2024 -has dentures -health care proxy 06/28/24 Assessment & Plan (06/28/2024 3:34 PM EDT): -next physical exam due after 07/28/2024 -eye care facilitated by [facility] next appointment in April 2023. -only has dentures. -health care proxy 06/28/24 Assessment & Plan (07/28/2023 3:38 PM EDT): -next physical exam due after 07/28/2024 -eye care facilitated by [facility] next appointment in April 2023. -dental home is Assessment & Plan (04/14/2023 4:09 PM EDT): -next physical exam due after -eye care facilitated by [facility] next appointment in April 2023. -dental [...] Stage 3b chronic kidney disease 12/26/2020 Overview (01/18/2025): Lab Results Component Value Date CREATININE 1.46 [...] renal func and Uprot; check PTH/vit D Most recent saw Nephrology 01/08/25, plan to Cont To Maximize renal protection: - cont use SHAI-inhibitor ( CLEM or ARB) -cont SGLT2i - cont Kerendia -target LDL < 70 - cont to stress strict BP/BS control and avoid NSAIDS -look to add GLP1a ( Ozempic) -will discuss with [facility] with our PharmD, CDCES and pt will have sooner follow-up in the nest month with them 01/18/25 Assessment & Plan (01/18/2025 11:36 AM EDT): Lab Results Component Value Date CREATININE [...] renal func and Uprot; check PTH/vit D Most recent saw Nephrology 01/08/25, plan to Cont To Maximize renal protection: - cont use SHAI-inhibitor ( CLEM or ARB) -cont SGLT2i - cont Kerendia -target LDL < 70 - cont to stress strict BP/BS control and avoid NSAIDS -look to add GLP1a ( Ozempic) -will discuss with [facility] with our PharmD, CDCES and pt will have sooner follow-up in the nest month with them 01/18/25 Assessment & Plan (12/27/2024 1:18 PM EDT): [...] moderate physical activity discussed. Assessment & Plan (01/18/2025 11:33 AM EDT): -BP at goal -continue lisinopril 40 [...] h diabetic chronic kidney disease 10/18/2003 Overview (01/18/2025): Re-enrolled in [facility] 07/14/24 Lab Results Component Value Date HGBA1C [...] 2 months ago 06/28/24; requested retrial to [facility] RPH and trulicity 0.75mg once weekly restarted 08/11/24 -SMBG via Dexcom G7 -Given lancets to test BGL 06/28/24 -Saw [facility] with our DRU Daniel 12/22/24, Plan: - Increase trulicity to 1.5mg once weekly - Decrease lantus to 38 units once daily - Refill for glucose tablets provided - Continue focus on meal portions and healthy diet and lifestyle -Per nephrology note 01/08/25 recommending starting GLP-1(Ozempic), will discuss with [facility] with our PharmDRU Swain and pt will have sooner follow-up in the nest month with them 01/18/25 Assessment & Plan (01/18/2025 11:36 AM EDT): Re-enrolled in [facility] 07/14/24 Lab Results Component Value Date HGBA1C [...] 2 months ago 06/28/24; requested retrial to [facility] RPH and trulicity 0.75mg once weekly restarted 08/11/24 -SMBG via Dexcom G7 -Given lancets to test BGL 06/28/24 -Saw [facility] with our DRU Daniel 12/22/24, Plan: - Increase trulicity to 1.5mg once weekly - Decrease lantus to 38 units once daily - Refill for glucose tablets provided - Continue focus on meal portions and healthy diet and lifestyle -Per nephrology note 01/08/25 recommending starting GLP-1(Ozempic), will discuss with [facility] with our DRU Daniel and pt will have sooner follow-up in the nest month with them 01/18/25 Assessment & Plan (12/27/2024 1:19 PM EDT): Re-enrolled in [facility] 07/14/24 Lab Results Component Value Date HGBA1C 8.2 (A) 12/27/2024 HGBA1C 8.0 (A) 12/15/2024 HGBA1C 8.4 (H) 07/26/2024 Lab Results Component Value Date MICROALBUR 624.0 07/26/2024 CREATININE 1.46 (H) 07/26/2024 -Clem/Arb: lisinopril 40mg -Statin therapy: atorvastatin 40mg -Diabetic eye exam: Seen by [facility] eye care last done 12/2021. Referral done 04/14/2023. -Diabetic foot exam: Done12/27/24 -Continue lifestyle modifications -metformin discontinued due to CKD in past -Lantus and Humalog titrated by [facility] Assessment & Plan (06/28/2024 3:44 PM EDT): Diabetes is not controlled, A1C worsened compared to last. Lab Results Component Value Date HGBA1C 10.0 (A) 06/28/2024 HGBA1C 9.2 (A) 02/22/2024 HGBA1C 10.3 (A) 07/28/2023 Lab Results Component Value Date MICROALBUR 9.4 12/15/2021 CREATININE 1.57 (H) 03/09/2023 -Clem/Arb: lisinopril 40mg -Statin therapy: atorvastatin 40mg -Diabetic eye exam: Seen by [facility] eye care last done 12/2021. Referral [...] Collaborative Drug Therapy Managment Program with our PharmDDRU. -referred to [facility] Drug Therapy Managment Program [...] atorvastatin 40mg -Diabetic eye exam: Seen by [facility] eye care last done 12/2021. Referral [...] atorvastatin 40mg -Diabetic eye exam: Seen by [facility] eye care last done 12/2021. Referral [...] Encounters Date Type Department Care Team Description 02/02/2025 Travel 01/23/2025 2:00 PM EDT Clinical Support [facility] [place] [address] Christina Lambert RN Type 2 diabetes mellitus with other specified complication, unspecified whether intermediate card tender insulin use ([facility]) 01/23/2025 Travel 01/18/2025 10:45 AM EDT Office Visit [facility] [place] [address] Winifred Herrera MD Preop examination (Primary Dx); Stage 3b chronic kidney disease ([facility]); Type 2 diabetes mellitus with stage 3 chronic kidney disease, with long-term current use of insulin, unspecified whether stage 3a or 3b CKD ([facility]); Primary hypertension; Decreased cardiac ejection fraction; Decreased hearing, unspecified laterality; Class 2 severe obesity due to excess calories with serious comorbidity and body mass index (BMI) of 39.0 to 39.9 in adult ([facility]); Dietary counseling; Exercise counseling; Decreased hearing of both ears 01/18/2025 Travel 01/15/2025 [address] [place] [address] Winifred Herrera MD Pre-op Exam 01/03/2025 Orders Only [facility] [place] [address] Winifred Herrera MD 12/29/2024 [address] [place] [address] Winifred Herrera MD Appointment Request 12/27/2024 10:15 AM EDT Office Visit [facility] [place] [address] Winifred Herrera MD Other specified health status (Primary Dx); Type 2 diabetes mellitus with stage 3 chronic kidney disease, with long-term current use of insulin, unspecified whether stage 3a or 3b CKD ([facility]); Primary hypertension; Recurrent major depressive episodes, moderate ([facility]); Class 2 severe obesity due to excess calories with serious comorbidity and body mass index (BMI) of 38.0 to 38.9 in adult ([facility]); Exercise counseling; Dietary counseling; Stage 3b chronic kidney disease ([facility]); Encounter for immunization; Decreased cardiac ejection fraction 12/27/2024 Travel 12/26/2024 Telephone [facility] [address] [place] [address] Winifred Herrera MD pre-op; chartprep 12/22/2024 Travel 12/19/2024 Orders Only [facility] [address] [place] [address] Winifred Herrera MD 12/18/2024 Refill [facility] [address] [place] [address] Winifred Herrera MD Type 2 diabetes mellitus with other diabetic kidney complication, with long-term current use of insulin (CMS/[facility]) 12/15/2024 Travel 12/15/2024 Patient Outreach [facility] [address] [place] [address] Winifred Herrera MD Pre-visit Planning (Pre-visit planning - LVM ) 12/11/2024 Refill [facility] [address], [place] [phone] Winifred Herrera MD Type 2 diabetes mellitus with stage 3 chronic kidney disease, with long-term current use of insulin, unspecified whether stage 3a or 3b CKD (CMS/[facility]) from Last 3 Months Immunizations Immunization Administration Dates Next Due Hep B, adult [...] Sign Reading Time Taken Comments Blood Pressure 108/58 02/02/2025 3:00 PM EDT Pulse 78 02/02/2025 3:00 PM EDT Temperature 35.9 ??C (96.7 ??F) 01/18/2025 11:08 AM E DT Respiratory Rate 20 01/18/2025 11:08 AM EDT Oxygen Saturation 93% 01/18/2025 11:08 AM EDT Inhaled Oxygen Concentration - - Weight 111 kg (244 lb 6.4 oz) 01/18/2025 11:08 A M EDT Height 168.3 cm (5' 6.25 ) 01/18/2025 11:08 AM E DT Body Mass Index 39.15 01/18/2025 11:08 AM EDT Plan of Treatment Upcoming Encounters Date Type Department Care Team (Late st Contact Info) Description 03/26/2025 1:00 PM EDT Medication Management [facility] [address] [place] [address] Kyleigh Hyman, PharmD [address] [place] [address] Health Maintenance Due Date Last Done Comments CT Colonography 1954 FIT DNA/Cologuard 1954 FIT 1954 FOBT 1955 Sigmoidoscopy 1954 Diabetes: Hemoglobin A1C 03/29/20252 025, 12/15/2024, 07/26/2024, Additional history exists Depression Screening 06/28/2025 06/28/2024, 06/28/20 24 SDOH Screening 06/28/2025 06/28/2024 COVID-19 Vaccine ( season) 2025 12/27/2024, 04/14/2023, 03/12/2022, Additional history exists Lipid Panel 07/26/2025 07/26/2024, 04/1 , 10/13/2021, Additional history exists Eye Exam 09/01/2025 09/01/2024, 08/18, 09/01/2024, Additional history exists Alcohol/Substance Use Screening 12/27/2025 12/27/2024 Diabetes: Foot Exam 12/27/2025 12/27/2024, 12/27/2024, 12/27/2024, Additional history exists Tobacco Screening 01/18/2026 01/18/2025 Colonoscopy 08/12/2027 08/12/2017 Colorectal Cancer Screening 08/12/2027 [...] Aged 60 years or older Completed 07/14/2024 HIB Vaccines Aged Out No longer eligi [...] patient's age to complete this topic Meningococcal B Vaccine Aged Out No l onger eligible based on patient's age to complete [...] Author Blood Pressure < 140/90 Blood Pressure 108/58(2024 3:00 PM EDT) No Kyleigh Ramos, Fredy Hemoglobin A1c < 7 Result Component 8.2( [...] 2:23 PM EDT) Creatinine, Urine 79.71 mg/dL [facility] Microalbumin Urine 427.0 mg/L [facility] Microalbum Creatinine Ratio Ur 535.6(H) <30 ug/mg cr [facility] Comment:Albumin/Creatinine R atio Reference Ranges: Normal: < 30 ug/mg creatinine Microalbuminuria: 30 - 300 ug/mg creatinineClinical Albuminuria: > 300 ug/mg creatinine 01/03/2025 2:23 PM EDT 01/03/2025 4:18 PM EDT Winifred Herrera MD LAB URINE ORDERABLES Final Result Performing Organization Address [facility] Co de Phone Number [facility] [address] [place] [phone] * (ABNORMAL) Basic Metabolic Panel (01/03/2025 2:23 PM EDT) Sodium 140 135 - 145 mmol/L [facility] Potassium 4.2 3.3 - 5.1 mmol/L [facility] Chloride 110(H) 96 - 108 mmol/L [facility] Carbon Dioxide 23 22 - 29 mmol/L [facility] Anion Gap 11(L) 12 - 20 [facility] Urea Nitrogen (BUN) 28(H) 9 - 16 mg/dL [facility] Creatinine, Serum 1.42(H) 0.5 - 1.4 mg/dL [facility] Estimated Glomerular Filt Rate 49 [facility] Comment:Chronic Kidney Disea se: Estimated GFR < 60 mL/min/[id number] Kidney Disease: Estimated GFR < 15 mL/min/1.73m2 Glucose 177(H) 60 - 115 mg/dL [facility] Calcium 9.5 8.4 - 10.2 mg/dL [facility] 01/03/2025 2:23 PM EDT 01/03/2025 4:08 PM EDT Winifred Herrera MD LAB BLOOD ORDERABLES Final Result Performing Organization Address [facility] Co de Phone Number [facility] [address] [place] [phone] * POCT glucose manually resulted (12/27/2024 10:12 AM EDT) Glucose Blood, POC 175 60 - 200 mg/dL [employer] Lot # [id number] Lot# Expiration Date [id number] Blood Capillary blood specimen / Unknown 12/27/2024 10:12 AM EDT Winifred Herrera MD POINT OF CARE TEST ENTER/E DIT ORDERABLES Final Result * (ABNORMAL) POCT glycosylated hemoglobin (Hgb A1c) (12/27/2024 10:11 AM EDT) Pathologist [facility] Hemoglobin A1C 8.2(A) 4.0 - 6.0 % QC Media Lot # [id number] Lot# Expiration Date Blood Capillary blood specimen / Unknown 12/27/2024 10:11 AM EDT Winifred Herrera MD POINT OF CARE TEST ENTER/E DIT ORDERABLES Final Result * (ABNORMAL) POCT A1C (12/15/2024 3:32 PM EST) [facility] Hemoglobin A1C 8.0(A) 4.0 - 6.0 % QC Media Lot # [id number] Lot# Expiration Date Blood 12/15/2024 3:32 PM EST Winifred Herrera MD POINT OF CARE TEST ENTER/E DIT ORDERABLES Final Result * Lipid Panel, Standard (07/26/2024 10:13 AM EDT) Triglycerides 74 <150 mg/dL [facility] Comment:Desirable Triglyceri de: less than 150 mg/dLBorderline High Triglyceride 150-199 mg/dLHigh Triglyceride: 200-499 mg/dLVery High Triglyceride: greater than or equal to 5OO mg/dL Cholesterol 98 <200 mg/dL [facility] Comment:Desirable Cholestero l: less than 200 mg/dLBorderline High Cholesterol: 200-239 mg/dLHigh Cholesterol: greater than 239 mg/dL LDL Cholesterol Calculated 42 <100 mg/dL [facility] Comment:Desirable LDL: less than 100 mg/dLNear Optimal/Above Optimal LDL: 110- 129 mg/dLBorderline High LDL: 130-159 mg/dLHigh LDL: 160-189 mg/dLVery High LDL: greater than or equal to 190 mg/dL HDL Cholesterol 42 >40 mg/dL [facility] Comment:Desirable HDL: great er than 40 mg/dL Note: This HDL assay may give artificially low results in patients with liver disease. Blood Venous blood specimen / Unknown 07/26/2024 10:13 AM EDT 07/26/2024 11:34 AM EDT Winifred Herrera MD LAB BLOOD ORDERABLES Final Result Performing Organization Address [facility] Co de Phone Number [facility] [address] [place] [phone] * Hepatitis C Antibody with Reflex to HCV, RNA, Quantitative, Real-Time PCR (03/02/2023 3:17 PM EDT) Hepatitis C Antibody NON-REACT PHILIPP NON-REACT PHILIPP [facility] [place] [facility] Index 0.16 <1.00 [facility] Comment: HCV antibody was non-reactive. There is no laboratory evidence of HCV infection. In most cases, no further action is required. However, if recent HCV exposure is suspected, a test for HCV RNA (test code 69831) is suggested. For additional information please refer to http://education.Intralign.DanceTrippin/faq/NEX50c7 (This link is being provided for informational/ educational purposes only.) 03/02/2023 3:17 PM EDT 03/02/2023 3:17 PM EDT Narrative [facility] - 03/03/2023 8:57 AM EDT FASTING:NO FASTING: NO Winifred Herrera MD LAB BLOOD ORDERABLES Final Result [facility] [address], [place] [phone] [facility] [address] [place] [address] * Hm Colonoscopy (08/12/2017) Colonoscopy hyperplastic plyp Dr. 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
--- OUTSIDE RECORDS SUMMARY | 2025-03-06 16:09 | XMS_ITS | Encounter Summary ---
Author Organization [employer] Address 75 [facility] 7t [place] [address] Care Team Providers Care Wire Roller Name Role Phone Winifred Herrera MD Primary Care Provider Kyleigh Hyman PharmD Unavailable [phone] Maged Ricardo MD Unavailable [phone] Teodoro Chayo OD Unavailable [phone] Melvin Palma Unavailable Encounter Details Date Type Department Care Team (Late st Contact Info) Description 09/17/2023 Abstract [facility] 230 [place], [place] [phone] Winifred Hrerera MD 230 [place], [place] [phone] Social History Tobacco Use Types Packs/Day Years [...] Description 03/26/2025 1:00 PM EDT Medication Management [facility] 230 [place] [address] Randys-Kyleigh Weiss, PharmD 230 [place] [address] documented as of this encounter Goals Goal Patient Goal Type Associated Problems Recent Progress Patient-Stated? Author Blood Pressure < 140/90 Blood Pressure 108/58(2024 3:00 PM EDT) No Piers-Gambl e, Kyleigh, PharmD Hemoglobin [...] documented as of this encounter Care Teams Wire Roller Relationship Specialty Start Date End Date [place], Winifred, MD 230 [place] [address] PCP - General Family Medicine 10/18/18 Kyleigh Hyman PharmD 230 [place] [address] Pharmacist Internal Medicine 02/15/23 Maged Ricardo MD 100 [facility] LAINEY JIGAR 200 [place] [address] Nephrology 12/19/24 Chayo Valerio OD [address] [place] [address] Optometry 12/19/24 Melvin Palma [address] [place] [address] Ophthalmology 01/01/25 documented as of this encounter
--- OUTSIDE RECORDS SUMMARY | 2025-03-06 16:10 | XMS_ITS | Encounter Summary ---
Author Organization [employer] Address 75 [facility] 7t [place] [address] Care Team Providers Care Laboratory Technical Specialist Name Role Phone Winifred Herrera MD Primary Care Provider [phone] Kyleigh Hyman PharmD Unavailable Maged Ricardo MD Unavailable Chayo Valerio SONNY Unavailable Melvin Palma Unavailable Encounter Details Date Type Department Care Team (Late st Contact Info) Description 11/02/2022 Abstract [facility] MEDICINE [address] [place] [phone] Winifred Herrera MD 230 [place], [place] [phone] Social History Tobacco Use Types Packs/Day Years [...] Description 03/26/2025 1:00 PM EDT Medication Management [facility]INE 230 [place] [address] Kyleigh Hyman, PharmD 230 [place], [place] [phone] documented as of this encounter Procedures Procedure Name Priority Date/Time Associated Diagnosis Comments COLONOSCOPY Routine 08/12/2017 documented in this encounter Results * Colonoscopy (08/12/2017) Colonoscopy hyperplastic plyp Dr. Navarrete us Historical Provider HEALTH MAINTENANCE Final Result documented in this encounter Visit Diagnoses Not on filedocumented in this encounter Care Teams Laboratory Technical Specialist Relationship Specialty Start Date End Date Winifred Herrera MD 230 [place] [address] PCP - General Family Medicine 10/18/18 Kyleigh Hyman PharmD 230 [place] [address] Pharmacist Internal Medicine 02/15/23 Maged Ricardo MD 100 [facility] MARIA DEL CARMEN [address] [address] Nephrology 12/19/24 Chayo Valerio OD [address] [place] [address] Optometry 12/19/24 Melvin Palma [address] [place] [address] Ophthalmology 01/01/25 documented as of this encounter
--- OUTSIDE RECORDS SUMMARY | 2025-03-06 16:10 | XMS_ITS | Encounter Summary ---
Author Organization [email or web address] Address 75 [facility] 7t [place] [address] Care Team Providers Care Pharmaceutical Process Engineer Name Role Phone BellWinifred ni MD Primary Care Provider + [phone] Kyleigh Hyman PharmD Unavailable Maged Ricardo MD Unavailable [phone] Teodoro Chayo OD Unavailable [phone] Melvin Palma Unavailable Reason for Visit * Reason Comments Med Refill Encounter Details Date Type Department Care Team (Late st Contact Info) Description 07/07/2024 Refill [facility] MED[facility]INE 230 [place], [place] [phone] Kyleigh Hyman, PharmD 230 [place] [address] Social History Tobacco Use Types Packs/Day Years [...] Description 03/26/2025 1:00 PM EDT Medication Management [facility] 230 [place] [address] Piers-Weiss, Kyleigh, PharmD 230 [place] [address] documented as of this encounter Goals Goal [...] documented as of this encounter Care Teams Pharmaceutical Process Engineer Relationship Specialty Start Date End Date Winifred Herrera MD 230 [place] [address] PCP - General Family Medicine 10/18/18 Kyleigh Hyman PharmD 230 [place] [address] Pharmacist Internal Medicine 02/15/23 Maged Ricardo MD 100 JENA JOYCE JIGAR 200 [place] [address] Nephrology 12/19/24 Chayo Valerio OD [address] [place] [address] Optometry 12/19/24 Melvin Palma [address] [place] [address] Ophthalmology 01/01/25 documented as of this encounter
--- OUTSIDE RECORDS SUMMARY | 2025-03-06 16:10 | XMS_ITS | Encounter Summary ---
Author Organization [employer] Address 75 [facility] 7t [place] [address] Care Team Providers Care Material Controller Name Role Phone Winifred Herrera MD Primary Care Provider [phone] Kyleigh Hyman PharmD Unavailable Maged Ricardo MD Unavailable Chayo Valerio OD Unavailable [phone] Melvin Palma Unavailable Reason for Visit * Reason Onset Date Comments Glucose Device 02/12/2023 Appointment Confirmation 02/12/2023 Encounter Details Date Type Department Care Team (Late st Contact Info) Description 02/12/2023 Telephone [facility] 230 [place], [place] [phone] Winifred Herrera MD 230 [place], [place] [phone] Glucose Device; Appointment Confirmation Social History Tobacco [...] Sharon followup of bilateral leg swelling in [facility] 03/02. No answer, left V/M. Will retask to swapna kerr for second attempt * Telephone Encounter - Tejal Kenny RN - 02/26/2023 10:45 AM EDT ----- Message from Winifred Herrera MD sent at 02/23/2023 7:45 AM EDT ----- ----- Message ----- From: Jamilah Goddard RN Sent: 02/22/2023 4:49 PM EDT To: Winifred Herrera MD Please review message from [facility] provider. No available appts on the team for the next week. Please advise team nurses if pt can be scheduled with you on one of the days you are on [facility]. ----- Message ----- From: SUE Preciado Sent: 02/22/2023 3:42 PM EDT To: [place] [facility] Team Nurses Please schedule followup [...] Winifred Herrera MD Please review message from [facility] provider. No available appts on the team for the next week. Please advise team nurses if pt can be scheduled with you on one of the days you are on [facility]. ----- Message ----- From: SUE Preciado Sent: 02/22/2023 3:42 PM EDT To: [facility] Team Nurses Please schedule followup of bilateral leg swelling with PCP in 1 week, ordered labs as well to assess secondary causes. Thank you * Telephone Encounter - Collins Lam - 02/12/2023 4:22 PM EDT Tc from pt requesting a new script for Continuous Blood Gluc Ethernet Network Architect (FreeStyle Russell 2 Delta) device. Pt states that he lost previous one today after appt of CD[facility]. Please contact pt at [phone] documented in this encounter Plan of Treatment Upcoming Encounters Date Type Department Care Team (Late st Contact Info) Description 03/26/2025 1:00 PM EDT Medication Management [facility] 230 [place] [address] Kyleigh Hyman PharmD 230 [place] [address] documented as of this encounter Goals Goal Patient Goal Type Associated Problems Recent Progress Patient-Stated? Author Blood Pressure < 140/90 Blood Pressure 108/58(2024 3:00 PM EDT) No Kyleigh Ramos PharmD Hemoglobin A1c < 7 Result Component 8.2( 5 10:11 AM EDT) No Kyleigh Ramos PharmD documented as of this encounter Visit Diagnoses Diagnosis Type 2 diabetes mellitus with other specified complication, unspecified whether correction insulin use ([facility]) documented in this encounter Additional Health Concerns Assessment Noted Time PHQ-9 Depression Total Score: 0 02/11/20 23 10:41 AM EDT documented as of this encounter Care Teams Material Controller Relationship Specialty Start Date End Date Winifred Herrera MD 230 [place] [address] PCP - General Family Medicine 10/18/18 Kyleigh Hyman PharmD [address] [place] [address] Pharmacist Internal Medicine 02/15/23 Maged Ricardo MD [address] [address] Nephrology 12/19/24 Chayo Valerio OD [address] [place] [address] Optometry 12/19/24 Melvin Palma [address] [place] [address] Ophthalmology 01/01/25 documented as of this encounter
--- OUTSIDE RECORDS SUMMARY | 2025-03-06 16:10 | XMS_ITS | Encounter Summary ---
Author Organization [facility] Address [address] 200 [place] [address] Phone Care Team Providers Care Quality Supervisor Name Role Phone Winifred Herrera MD Primary Care Provider U bellcarline Encounter Details Date Type Department Care Team (Late Contact Info) Description 03/17/2023 Telephone [facility] [address] [facility] 200 [place] [address] Susan Wolff Social History Tobacco [...] Susan Wolff - 03/17/2023 9:22 AM EDT [facility] called tot relay med changes on this mutual PT. D/C hydrochlorothiazide Insulin Lantus 28 units once a day Insulin Lispro 6 units lunch, 8 units for dinner documented in this encounter Plan of Treatment Upcoming Encounters Date Type Department Care Team (Late st Contact Info) Description 03/26/2025 3:30 PM EDT Office Visit [facility] [address] [place] [place] [phone] Maged Ricardo MD 7678 [facility] 204 [place] [address] documented as of this encounter Visit Diagnoses Not on filedocumented in this encounter Care Teams Quality Supervisor Relationship Specialty Start Date End Date Winifred Herrera, MD PCP - General 10/28/20 documented as of this encounter
--- OUTSIDE RECORDS SUMMARY | 2025-03-06 16:10 | XMS_ITS | Encounter Summary ---
Author Organization [employer] Address 75 [facility] 7t [place] [address] Care Team Providers Care Rn Med Surg Name Role Phone [place], Winifred ADAME Primary Care Provider [phone] Kyleigh Hyman PharmD Unavailable Maged Ricardo MD Unavailable [phone] Teodoro, Chayo OD Unavailable [phone] Melvin Palma Unavailable Encounter Details Date Type Department Care Team (Late st Contact Info) Description 03/08/2023 Orders Only [facility]INE 230 [place], [place] [phone] Temitope Lo MD 230 [place], [place] [phone] Social History Tobacco Use Types Packs/Day Years [...] Description 03/26/2025 1:00 PM EDT Medication Management [facility] 230 [place] [address] Kyleigh Hyman PharmD [address] [place] [address] documented as of this encounter Goals Goal Patient Goal Type Associated Problems Recent Progress Patient-Stated? Author Blood Pressure < 140/90 Blood Pressure 108/58(2024 3:00 PM EDT) No Kyleigh Ramos, PharmD Hemoglobin A1c [...] PM EDT Narrative 03/31/2023 4:58 PM EDT ?[place] [facility] ?[address] ?[place] [address] ?XRay Report ? Signed ? Patient: Macias,Jourdan ?MR#: [id number] ? : 1955 ?Acct:[id number] ? Age/Sex: 67 / M ?ADM Date: 03/31/23 ? Loc: HO.HHCX ? Attending Dr: Ruth Bland MD ? Ordering Physician: Ruth Bland MD ?? Date of Service: 03/31/23 ?? Procedure(s): XR wrist RT w scaphoid ?? Accession Number(s): [id number] ? cc: Ruth Bland MD ? EXAMINATION: [...] 1655 ? DD/ 1544 ? TD/TT: ? Director Oracle Database: VILLEGAS ? Procedure Note Tawnya, Image - 04/14/[address] [address] XRay Report Signed Patient: Comfort Macias#: [id number] : 4Acct:[id number] Age/Sex: 67 / MADM Date: 03/31/23 Loc: HO.HHCX Attending Dr: Ruth Bland MD Ordering Physician: Ruth Bland MD Date of Service: 03/31/23 Procedure(s): XR wrist RT w scaphoid Accession Number(s): [id number] cc: Ruth Bland MD EXAMINATION: XR WRIST, [...] in OV> 03/31/23 1655 DD/ 1544 TD/TT: Director Oracle Database: VILLEGAS [facility] External Provider IMG XR PROCEDURES Final Result * XR Ankle 3+ Views Left (03/31/2023 3:44 PM EDT) Anatomical Region Laterality Modality Lower Extremities, Ankle Left Radiogr aphic Imaging 03/31/2023 3:44 PM EDT Narrative 03/31/2023 4:51 PM EDT ?[facility] ?[address] ?[place] [address] ?XRay Report ? Signed ? Patient: Colleen,Jourdan ?MR#: [id number] ? : 1955 ?Acct:[id number] ? Age/Sex: 67 / M ?ADM Date: 06/14/23 ? Loc: HO.HHCX ? Attending Dr: Ruth Bland MD ? Ordering Physician: Ruth Bland MD ?? Date of Service: 03/31/23 ?? Procedure(s): XR ankle LT min 3V ?? Accession Number(s): [id number] ? cc: Ruth Bland MD ? 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 ? Dictated By: ?tSepan Doyle MD ? Signed By: ?<Electronically signed by Stepan Doyle MD in OV> ?03/31/23 1649 ? DD/ 1544 ? TD/TT: ? Director Oracle Database: VILLEGAS ? Procedure Note Tawnya, Image - 04/14/2023 [facility] [address] [place] [address] XRay Report Signed Patient: Comfort Macias#: [id number] : 4Acct:[id number] Age/Sex: 67 / MADM Date: 03/31/23 Loc: HO.HHCX Attending Dr: Ruth Bland MD Ordering Physician: Ruth Bland MD Date of Service: 03/31/23 Procedure(s): XR ankle LT min 3V Accession Number(s): [id number] cc: Ruth Bland MD EXAMINATION: XR ANKLE, [...] in OV> 03/31/23 1649 DD/ 1544 TD/TT: Director Oracle Database: VILLEGAS [facility] External Provider IMG XR PROCEDURES Final Result documented in this encounter Visit Diagnoses Not on filedocumented in this encounter Additional Health Concerns Assessment Noted Time PHQ-9 Depression Total Score: 0 02/11/20 10:41 AM EDT documented as of this encounter Care Teams Rn Med Surg Relationship Specialty Start Date End Date Winifred Herrera MD [address] [place] [address] PCP - General Family Medicine 10/18/18 Kyleigh Hyman PharmD [address] [place] [address] Pharmacist Internal Medicine 02/15/23 Maged Ricardo MD 100 J[address] JOYCE JIGAR 200 [place] [address] Nephrology 12/19/24 Chayo Valerio OD [address] [place] [address] Optometry 12/19/24 Melvin Palma [address] [place] [address] Ophthalmology 01/01/25 documented as of this encounter
--- OUTSIDE RECORDS SUMMARY | 2025-03-06 16:10 | XMS_ITS | Encounter Summary ---
Author Organization [facility] Address 100 [facility] 200 [place] [address] Phone Care Team Providers Care Engineering Director Name Role Phone Winifred Herrera MD Primary Care Provider [place] horn Encounter Details Date Type Department Care Team (Late st Contact Info) Description 01/08/2021 Orders Only [facility] 100 [facility] 200 [place] [address] ProviderJoe MD [address] [place] [phone] Social History Tobacco Use Types Packs/Day Years [...] Visit [facility] [address] [place] [phone] Maged Ricardo MD 7515 [facility] 204 [place] [phone] documented as of this encounter Procedures Procedure Name Priority Date/Time Associated Diagnosis Comments EXT RESULT ENTRY Routine 01/08/2021 documented in this encounter Results * EXT RESULT ENTRY (01/08/2021) us Historical Provider LAB BLOOD ORDERABLES Martha l Result documented in this encounter Visit Diagnoses Not on filedocumented in this encounter Care Teams Engineering Director Relationship Specialty Start Date End Date Sharon, Winifred Wilson MD PCP - General 10/28/20 documented as of this encounter
== END 2025-03-06 15:04 | disposition home or self-care (01) ==
LOC: HO.SH 15:03
PROVIDERS: Visit Provider Family Medicine
DX: Z01.118 Encounter for examination of ears and hearing with other abnormal findings (principal); H90.3 Sensorineural hearing loss, bilateral
CPT/HCPCS: 92557; 92567

== ENCOUNTER 2025-03-22 07:59 | Outpatient (REF) | payer MEDICARE, SELFPAY ==
--- OUTSIDE RECORDS SUMMARY | 2025-03-22 08:06 | XMS_ITS | Clinical Summary ---
Author Organization [facility] Address [address] [facility] [address] [address] [place] [address] Phone Care Team Providers Care Cleaner Name Role Phone Winifred Herrera MD Primary [...] due after 07/28/2024 -eye care facilitated by [facility] next appointment in April 2023. -dental home is Last Assessment & Plan: -next physical exam due after 07/28/2024 -eye care facilitated by [facility] next appointment in April 2023. -dental home [...] Orders Only [facility] [address] [place] [address] 204 [place] [address] Barb Smith MA 02/05/2025 Orders Only [facility] [address] [place] [address] Maged Ricardo MD Stage 3b chronic kidney disease (HCC); Type 2 diabetes mellitus with diabetic chronic kidney disease (HCC); Hypertensive disorder 01/08/2025 2:15 PM EDT Office Visit [facility] [address] [place], [place] [address] Maged Ricardo MD Stage 3b chronic kidney [...] Visit [facility] [address] [place] [address] Maged Ricardo MD [address] [facility] 204 [place] [address] Health Maintenance Due Date Last Done Comments [...] 06/28/2024, , 01/30/2021, Additional history exists Insurance [facility] Care Teams Cleaner Relationship Specialty Start Date End Date Waldo, Winifred Wilson MD PCP - General 10/28/20
[2025-03-22 08:58] LABS: Appearance Urine Clear; Color Urine Yellow; Glucose Urine UA >=1000 mg/dL (Negative); Leukocyte Esterase Urine Negative (Negative); Nitrite Urine Negative (Negative); PH 5.5 (5.0-9.0); Specific Gravity - Urine >= 1.030 (1.005-1.025); UMIC TRIGGER UA YES; Urine Blood Trace (Negative); Urine Ketones Negative (Negative); Urine Protein 100 (2+) mg/dL (Neg-Trace)
[2025-03-22 09:01] LABS: Bacteria Urine None Seen (None Seen); Hyaline Casts Urine 0-2 /LPF (0-2); RBC Urine 0-2 /HPF (0-2); Squamous Epithelial Cell Urine 0-2 /HPF (0-2); WBC Urine 0-5 /HPF (0-5)
[2025-03-22 09:18] LABS: Anion Gap 9 (12-20); Blood Urea Nitrogen 29 mg/dL (9-16); Calcium 9.9 mg/dL (8.4-10.2); Carbon Dioxide 27 mmol/L (22-29); Chloride 110 mmol/L (96-108); Estimated Glomerular Filt Rate 44; Potassium 4.1 mmol/L (3.3-5.1); Sodium 142 mmol/L (135-145)
[2025-03-22 09:49] LABS: Creatinine Urine 97.26 mg/dL; Protein/Creatinine Ratio, Ur 0.89 (<0.2); Total Protein Urine Random 87 mg/dL (<12)
[2025-03-22 10:00] LABS: Microalbum/Creatinine Ratio Ur 598.3 ug/mg cr (<30)
== END 2025-03-22 08:00 | disposition home or self-care (01) ==
LOC: HO.LAB 07:59
PROVIDERS: PCP Family Medicine; Visit Provider Internal Medicine Nephrology
DX: N18.32 Chronic kidney disease, stage 3b (principal); E11.22 Type 2 diabetes mellitus with diabetic chronic kidney disease; I10 Essential (primary) hypertension
CPT/HCPCS: 36415; 80051; 81001; 82043; 82310; 82565; 82570; 84156; 84520

== ENCOUNTER 2025-09-11 09:22 | Outpatient (REF) | payer MEDICARE, SELFPAY ==
--- OUTSIDE RECORDS SUMMARY | 2025-09-11 10:38 | XMS_ITS | Clinical Summary ---
Author Organization [facility] Address [address] [facility] [address] [place] [address] Phone Care Team Providers Care Health Support Specialist Name Role Phone Winifred Herrera MD [...] EVERY EVENING 30 tablet 11 08/06/2023 Active Dulaglutide (Trulicity) 3 MG/0.5ML solution auto-injector Inject 3 mg under the skin once a week 02/02/2025 Active Kerendia 10 MG tablet TAKE 1 TABLET BY MOUTH EVERY MORNING 30 tablet 2 06/14/2025 Active Active Problems Problem Noted Date Diagnosed Date Proteinuria 03/26/2025 Renal osteodystrophy 03/26/2025 Stage 3b chronic kidney disease 01/03/2024 Stage 3b chronic kidney disease 08/16/2023 Type 2 diabetes mellitus wit h diabetic chronic kidney disease 08/16/2023 Patient encounter status 04/14/2023 023 Overview (08/16/2023): -next physical exam due after 07/28/2024 -eye care facilitated by [facility] next appointment in April 2023. -dental home is Last Assessment & Plan: -next physical exam due after 07/28/2024 -eye care facilitated by [facility] next appointment in April 2023. -dental [...] Encounters Date Type Department Care Team Description 06/14/2025 Refill [facility] [address] [address] Maged Ricardo MD from Last 3 Months Immunizations Immunization Administration [...] Sign Reading Time Taken Comments Blood Pressure 138/70 03/26/2025 3:18 PM EDT Pulse 78 01/08/2025 2:18 PM EDT Temperature - - Respiratory Rate - - Oxygen Saturation 99% 01/08/2025 2:18 PM EDT Inhaled Oxygen Concentration - - Weight 110 kg (242 lb 3.2 oz) 03/26/2025 3:18 PM EDT Height 167.6 cm (5' 6 ) 09/20/2020 12:00 PM EST Body Mass Index 39.09 09/20/2020 12:00 PM EST Plan of Treatment Upcoming Encounters Date Type Department Care Team (Late st Contact Info) Description 09/24/2025 3:15 PM EST Office Visit [facility] [address] [place] [address] Maged Ricardo MD 67[address] [facility] 204 [place] [address] Health Maintenance Due Date Last Done Comments Colorectal Cancer Screening: Annual FOBT 2003 Colorectal Cancer Screening: Colonoscopy 2003 Colorectal Cancer Screening: Sigmoidoscopy 2003 Diabetes: Pedal Pulse Checked 02/15/2023 Diabetes: Sensory Foot Exam 02/15/2023 Diabetes: Visual Foot Exam 02/15/2023 Influenza Vaccine (#1) 2025 4, 07/25/2021, 01/30/2021, Additional history exists Diabetes: Hemoglobin A1C 06/26/2025 025, 12/27/2024, 12/15/2024, Additional history exists Diabetes: Ophthalmology Exam 06/05/2026 06/05/2025 Hepatitis B Vaccine Aged Out 12/05/2014, 09/03/2014, 02/19/2014 No longer eligible based on patient's age to complete this topic Pneumococcal Vaccine: 50+ Years Completed 03/08/2023, 09/03/2014, 11/04/2006 Pneumococcal Vaccine: Peds (0 to 5 Years) and At-Risk Patients (6 to 49 Years) Discontinued 03/08/2023, 09/03/2014, 11/04/2006 Insurance [facility] Care Teams Health Support Specialist Relationship Specialty Start Date End Date Fentress, Winifred Wilson MD PCP - General 10/28/20
--- OUTSIDE RECORDS SUMMARY | 2025-09-11 10:38 | XMS_ITS | Encounter Summary ---
Author Organization [employer] Address 75 [facility] 7t [place] [address] Care Team Providers Care Maid Cleaning Cooking Name Role Phone Winifred Herrera MD Primary Care Provider + [phone] Kyleigh Hyman PharmD Unavailable [phone] Maegd Ricardo MD Unavailable [phone] Teodoro Chayo OD Unavailable [phone] Melvin Palma Unavailable Encounter Details Date Type Department Care Team (Late st Contact Info) Description 09/17/2023 Abstract [facility] MEDICINE 230 [place], [place] [phone] Winifred Herrera MD 230 [place], [place] [phone] Social History Tobacco Use Types Packs/Day Years [...] Care Team (Late st Contact Info) Description 10/03/2025 2:00 PM EST Office Visit [facility] OPTOMETRY [address] [place] [address] TeodoroVinicius julienn, OD 230 [place] [address] 10/08/2025 3:00 PM EST Medication Management [facility] MEDICINE 230 [place] [address] Kyleigh Hyman, PharmD 230 [place] [address] 10/24/2025 2:00 PM EST Office Visit [facility] MEDICINE 230 [place] [address] Winifred Herrera MD 230 [place] [address] documented as of this encounter Goals Goal Patient Goal Type Associated Problems Recent Progress Patient-Stated? Author Blood Pressure < 140/90 Blood Pressure 108/58(2024 3:08 PM EST) No Randys-Kyleigh Mason, PharmD Hemoglobin A1c < 7 Result Component 8(07/19/2025 10:46 AM EDT) No Kyleigh Ramos PharmD documented [...] documented as of this encounter Care Teams Maid Cleaning Cooking Relationship Specialty Start Date End Date Winifred Herrera MD 230 [place] [address] PCP - General Family Medicine 10/18/18 Kyleigh Hyman, BradenD 230 [place] [address] Pharmacist Internal Medicine 02/15/23 Maged Ricardo MD [address] [address] Nephrology 12/19/24 Chayo Valerio OD [address] [place] [address] Optometry 12/19/24 Melvin Palma [address] [place] [address] Ophthalmology 01/01/25 documented as of this encounter
--- OUTSIDE RECORDS SUMMARY | 2025-09-11 10:39 | XMS_ITS | Encounter Summary ---
Author Organization [employer] Address [address] [facility] 7t [place] [address] Care Team Providers Care Vp Home Health Name Role Phone Winifred Herrera MD Primary Care Provider + [phone] Kyleigh Hyman PharmD Unavailable Maged Ricardo MD Unavailable [phone] Chayo Valerio OD Unavailable [phone] Melvin Palma Unavailable Reason for Visit * Reason Comments Med Refill Encounter Details Date Type Department Care Team (Late st Contact Info) Description 09/11/2025 Refill [facility] [address] [place], [place] [phone] Winifred Herrera MD [address] [place], [place] [phone] Primary hypertension Social History Tobacco Use Types Packs/Day Years Used Date Smoking Tobacco: Never Passive Smoke Exposure: Never Smokeless Tobacco: Never Depression Answer Date Recorded Patient Health Questionnaire-9 Score 0 07/19/2025 Patient Health Questionnaire-9 Score 0 07/19/2025 Last PHQ-9: Questionnaire Data Not on file 1 Housing Stability Answer Date Recorded What is your housing situation today? Not on dre e 07/19/[address] you li ve. Do you have problems with any of the following? None of the above 07/19/2025 Food Insecurity Answer Date Recorded Within the past 12 months, y ou worried that your food would run out before you got money to buy more: Never True 07/19/2025 Within the past 12 months,th e food you bought just didn't last and you didn't have enough money to get more: Never True 11/2024 Transportation Answer Date Recorded In the past 12 months, has l ack of transportation kept you from medical appts, meetings, work or from getting things needed for daily living? No 07/19/2025 Utilities Answer Date Recorded In the past 12 months, has t he electric, gas, oil or water company threatened to shut off services in your home? No 07/19/2025 Depression Answer Date Recorded Patient Health Questionnaire-2 Score 0 07/19/2025 Internet Access Answer Date Recorded Internet Access Q1 No 07/19/2025 Internet Access Q2 I do not want or need it 11/2024 Sex and Gender Information Value Date Recorded Sex Assigned at Male 08/17/2022 10:15 AM EDT Legal Sex Male 10:15 AM EDT Gender Identity Male 08/17/2022 10:15 AM EDT Sexual Orientation Straight 08/17/2022 10 :15 AM EDT documented as of this encounter Plan of Treatment Upcoming Encounters Date Type Department Care Team (Late st Contact Info) Description 10/03/2025 2:00 PM EST Office Visit [facility] [address] [place] [address] Teodoro, Chayo, OD [address] [place] [address] 10/08/2025 3:00 PM EST Medication Management [facility] [address] [place] [address] Kyleigh Hyman, PharmD [address] [place] [address] 10/24/2025 2:00 PM EST Office Visit [facility] [address] [place] [address] Winifred Herrera MD [address] [place] [address] documented as of this encounter Goals Goal Patient Goal Type Associated Problems Recent Progress Patient-Stated? Author Blood Pressure < 140/90 Blood Pressure 108/58(2024 3:08 PM EST) No Kyleigh Ramos PharmD Hemoglobin A1c < 7 Result Component 8(07/19/2025 10:46 AM EDT) No Kyleigh Ramos PharmD documented as of this encounter Visit Diagnoses Diagnosis Primary hypertension Unspecified essential hypertension documented in this encounter Additional Health Concerns Assessment Noted Time PHQ-9 Depression Total Score: 0 07/19/20 25 10:48 AM EDT documented as of this encounter Care Teams Vp Home Health Relationship Specialty Start Date End Date Winifred Herrera MD [address] [place] [address] PCP - General Family Medicine 10/18/18 Kyleigh Hyman PharmD [address] [place] [phone] Pharmacist Internal Medicine 02/15/23 Maged Ricardo MD [address] [address] Nephrology 12/19/24 Chayo Valerio OD [address] [place] [address] Optometry 12/19/24 Melvin Palma [address] [place] [address] Ophthalmology 01/01/25 documented as of this encounter
--- OUTSIDE RECORDS SUMMARY | 2025-09-11 10:39 | XMS_ITS | Encounter Summary ---
Author Organization [employer] Address [address] [facility] 7t [place] [address] Care Team Providers Care Ground Transportation Operator Name Role Phone Winifred Herrera MD Primary Care Provider [phone] Kyleigh Hyman PharmD Unavailable Maged Ricardo MD Unavailable Chayo Valerio OD Unavailable Melvin Palma Unavailable Reason for Visit * Reason Onset Date Comments Glucose Device 02/12/2023 Appointment Confirmation 02/12/2023 Encounter Details Date Type Department Care Team (Late st Contact Info) Description 02/12/2023 Telephone [facility] [address] [place], [place] [phone] Winifred Herrera MD [address] [place], [place] [phone] Glucose Device; Appointment Confirmation Social History Tobacco [...] Sharon followup of bilateral leg swelling in [facility] 03/02. No answer, left V/M. Will retask to [facility] for second attempt * Telephone Encounter - Tejal Kenny RN - 02/26/2023 10:45 AM EDT ----- Message from Winifred Herrera MD sent at 02/23/2023 7:45 AM EDT ----- ----- Message ----- From: Jamilah Goddard RN Sent: 02/22/2023 4:49 PM EDT To: Winifred Herrera MD Please review message from [facility] provider. No available appts on the team for the next week. Please advise team nurses if pt can be scheduled with you on one of the days you are on [facility]. ----- Message ----- From: SUE Preciado Sent: 02/22/2023 3:42 PM EDT To: [facility] Team Nurses Please schedule followup [...] Winifred Herrera MD Please review message from [facility] provider. No available appts on the team for the next week. Please advise team nurses if pt can be scheduled with you on one of the days you are on [facility]. ----- Message ----- From: SUE Preciado Sent: 02/22/2023 3:42 PM EDT To: [facility] Team Nurses Please schedule followup of bilateral leg swelling with PCP in 1 week, ordered labs as well to assess secondary causes. Thank you * Telephone Encounter - Collins Lam - 02/12/2023 4:22 PM EDT Tc from pt requesting a new script for Continuous Blood Gluc Data Management Specialist ([employer] [place] [address] [place]) device. Pt states that he lost previous one today after appt of CD[facility]. Please contact pt at [phone] documented in this encounter Plan of Treatment Upcoming Encounters Date Type Department Care Team (Late st Contact Info) Description 10/03/2025 2:00 PM EST Office Visit [facility] OPTOM[facility]RY [address] [place] [address] Chayo Valerio, OD [address] [place] [address] 10/08/2025 3:00 PM EST Medication Management [facility] MEDICINE [address] [place] [address] Kyleigh Hyman, PharmD [address] [place] [address] 10/24/2025 2:00 PM EST Office Visit [facility] MEDICINE [address] [place] [address] Winifred Herrera MD [address] [place] [address] documented as of this encounter Goals Goal Patient Goal Type Associated Problems Recent Progress Patient-Stated? Author Blood Pressure < 140/90 Blood Pressure 108/58(2024 3:08 PM EST) No Kyleigh Ramos PharmWiliam Hemoglobin A1c < 7 Result Component 8(07/19/2025 10:46 AM EDT) No Kyleigh Ramos PharmD documented as of this encounter Visit Diagnoses Diagnosis Type 2 diabetes mellitus with other specified complication, unspecified whether skilled nursing insulin use (HCC) documented in this encounter Additional Health Concerns Assessment Noted Time PHQ-9 Depression Total Score: 0 02/11/20 23 10:41 AM EDT documented as of this encounter Care Teams Ground Transportation Operator Relationship Specialty Start Date End Date Winifred Herrera MD [address] [place] [address] PCP - General Family Medicine 10/18/18 Kyleigh Hyman, BradenD [address] [place] [address] Pharmacist Internal Medicine 02/15/23 Maged Ricardo MD [address] [phone] Nephrology 12/19/24 Chayo Valerio OD [address] [place] [address] Optometry 12/19/24 Melvin Palma [address] [place] [address] Ophthalmology 01/01/25 documented as of this encounter
--- OUTSIDE RECORDS SUMMARY | 2025-09-11 10:39 | XMS_ITS | Encounter Summary ---
Author Organization [employer] Address 75 [facility] 7t [place] [address] Care Team Providers Care Master Chef Name Role Phone SharonWinifred ni MD Primary Care Provider + [phone] Kyleigh Hyman PharmD Unavailable [phone] Maged Ricardo MD Unavailable [phone] Teodoro Chayo OD Unavailable [phone] Melvin aPlma Unavailable Reason for Visit * Reason Comments Med Refill Encounter Details Date Type Department Care Team (Late st Contact Info) Description 07/07/2024 Refill [facility] [address] [place], [place] [phone] Kyleigh Hyman, PharmD [address] [place] [address] Social History Tobacco Use Types Packs/Day Years [...] Description 10/03/2025 2:00 PM EST Office Visit [facility] OPTOMET[facility] [address] [place] [address] Teodoro, Chayo, OD [address] [place] [address] 10/08/2025 3:00 PM EST Medication Management [facility] [address] [place] [address] Kyleigh Hyman, PharmD [address] [place] [address] 10/24/2025 2:00 PM EST Office Visit [facility] [address] [place] [address] Winifred Herrera MD [address] [place] [address] documented as of this encounter Goals Goal Patient Goal Type Associated Problems Recent Progress Patient-Stated? Author Blood Pressure < 140/90 Blood Pressure 108/58(2024 3:08 PM EST) No PiersKyleigh Link PharmD Hemoglobin A1c < 7 Result Component 8(07/19/2025 10:46 AM EDT) No Kyleigh Ramos PharmD documented as of this encounter Visit Diagnoses Not on filedocumented in this encounter Additional Health Concerns Assessment Noted Time PHQ-9 Depression Total Score: 0 06/28/20 24 3:55 PM EDT documented as of this encounter Care Teams Master Chef Relationship Specialty Start Date End Date Winifred Herrera MD [address] [place] [address] PCP - General Family Medicine 10/18/18 Kyleigh Hyman PharmD [address] [place] [address] Pharmacist Internal Medicine 02/15/23 Maged Ricardo MD [address] [facility] [address] [phone] Nephrology 12/19/24 Chayo Valerio OD [address] [place] [address] Optometry 12/19/24 Melvin Palma [address] [place] [address] Ophthalmology 01/01/25 documented as of this encounter
--- OUTSIDE RECORDS SUMMARY | 2025-09-11 10:39 | XMS_ITS | Clinical Summary ---
Author Organization [employer] Address [address] [facility] [address] [place] [address] Care Team Providers Care Best Second Jobs Name Role Phone Winifred Herrera MD Primary Care Provider + [phone] Kyleigh Hyman PharmD Unavailable [phone] Maged Ricardo MD Unavailable [phone] Teodoro, Chayo OD Unavailable [phone] Palma Unavailable Allergies No known active allergies Medications Diclofenac Sodium 1 % gelIndications: Chronic shoulder pain, unspecified laterality APPLY TOPICALLY TO THE AFFECTED AREA(S) ONCE OR TWICE DAILY NEEDED FOR PAIN 100 g 3 023 Active Lancets (OneTouch Delica Plus [id number]) miscIndications :Type 2 diabetes mellitus with stage 3 chronic kidney disease, with long-term current use of insulin, unspecified whether stage 3a or 3b CKD (HCC) TEST BLOOD SUGAR 3 OR 4 TIMES PER DAY 100 each 11 024 Active lisinopril 40 MG tabletIndicatio ns:Primary hypertension TAKE 1 TABLET BY MOUTH EVERY MORNING 90 tablet 3 024 Active D3 Super Strength 50 MCG (1999) capsuleIndicati ons:Vitamin D deficiency TAKE 1 CAPSULE BY MOUTH EVERY MORNING 90 capsule 3 025 Active empagliflozin (Jardiance) 25 MGIndications:T ype 2 diabetes mellitus with stage 3 chronic kidney disease, with long-term current use of insulin, unspecified whether stage 3a or 3b CKD (HCC) TAKE 1 TABLET BY MOUTH EVERY MORNING 90 tablet 3 025 Active PARoxetine (Paxil) 10 MG tabletIndicatio ns:Depressive disorder TAKE 1 TABLET BY MOUTH EVERY MORNING 30 tablet Active Continuous Glucose Mannequin Sander And Finisher (FreeStyle Russell 3 Marshall) device 1 each Once per day. Use as directed for CGM 1 each Active Continuous Glucose Sensor (FreeStyle Russell 3 Plus Sensor) misc Apply 1 every 15 days as directed for CGM 2 each Active glucose blood (FreeStyle Precision Jese Test) test strip Use to test blood sugar 3 times daily in case of CGM failure or extremes of BG 100 each 2025 Active atorvastatin (Lipitor) 40 MG tabletIndicatio ns:Type 2 diabetes mellitus with other diabetic kidney complication, with long-term current use of insulin (HCC) TAKE 1 TABLET BY MOUTH AT BEDTIME 90 tablet Active glucose 4 g chewable tabletIndicatio ns:Type 2 diabetes mellitus with stage 3 chronic kidney disease, with long-term current use of insulin, unspecified whether stage 3a or 3b CKD (HCC) Chew 4 tablets (16 g) if needed for low blood sugar. 50 tablet 2025 Active ketorolac (Acular) 0.5 % ophthalmic solution PLACE 1 DROP IN THE AFFECTED EYE THREE TIMES DAILY STARTING 2 DAYS BEFORE YOUR PROCEDURE, THEN CONTINUE DIRECTED Active melatonin 3 MG tablet TAKE 1 TO 2 TABLETS BY MOUTH AT BEDTIME NEEDED FOR SLEEP Active fluticasone (Flonase) 50 MCG/ACT nasal sprayIndication s:Seasonal allergies INHALE 1-2 SPRAYS IN EACH NOSTRIL ONCE DAILY NEEDED 16 g Active Pentips Generic Pen [place] 32G X 4 MM miscIndications :Type 2 diabetes mellitus with stage 3 chronic kidney disease, with long-term current use of insulin, unspecified whether stage 3a or 3b CKD (HCC) USE FOUR TIMES DAILY DIRECTED WITH LANTUS AND HUMALOG 100 each Active Kerendia 10 MG tablet Take 1 tablet by mouth once daily Active amLODIPine (Norvasc) 5 MG tabletIndicatio ns:Primary hypertension TAKE 1 TABLET BY MOUTH EVERY MORNING 30 tablet Active Alcohol Swabs (Alcohol Prep) 70 % padsIndications :Type 2 diabetes mellitus with stage 3 chronic kidney disease, with long-term current use of insulin, unspecified whether stage 3a or 3b CKD (HCC) USE DIRECTED FIVE TIMES DAILY 100 each Active insulin glargine (Lantus SoloStar) 100 UNIT/ML penIndications: Type 2 diabetes mellitus with stage 3 chronic kidney disease, with long-term current use of insulin, unspecified whether stage 3a or 3b CKD (HCC) Inject 54 units subcutaneously once daily 15 mL Active insulin lispro (HumaLOG) 100 UNIT/ML injectionIndica tions:Type 2 diabetes mellitus with stage 3 chronic kidney disease, with long-term current use of insulin, unspecified whether stage 3a or 3b CKD (HCC) Inject subcutaneously twice daily 18 units before lunch and 24 units before dinner. Do not use if skipping meal. 15 mL Active Trulicity 4.5 MG/0.5ML solution auto-injectorIn dications:Type 2 diabetes mellitus with other specified complication, unspecified whether usp insulin use (HCC) INJECT ONE PEN (= 4.5MG) SUBCUTANEOUSLY ONCE A WEEK DIRECTED 2 mL Active Dulaglutide (Trulicity) 4.5 MG/0.5ML solution auto-injectorIn dications:Type 2 diabetes mellitus with other specified complication, unspecified whether usp insulin use (HCC) Inject 4.5 mg under the skin every 7 (seven) days. 2 mL 025 2024 Discontinued insulin glargine (Lantus SoloStar) 100 UNIT/ML penIndications: Type 2 diabetes mellitus with stage 3 chronic kidney disease, with long-term current use of insulin, unspecified whether stage 3a or 3b CKD (HCC) Inject 50 units subcutaneously once daily 15 mL 025 2024 Discontinued(R eorder (will not trigger notification to Pharmacy)) insulin lispro (HumaLOG) 100 UNIT/ML injectionIndica tions:Type 2 diabetes mellitus with stage 3 chronic kidney disease, with long-term current use of insulin, unspecified whether stage 3a or 3b CKD (HCC) Inject subcutaneously twice daily 18 units before lunch and 22 units before dinner. Do not use if skipping meal. 15 mL 3 025 2024 Discontinued(R eorder (will not trigger notification to Pharmacy)) Active Problems Patient Care Coordination No te Formatting of this note migh t be different from the original. Enrolled in [facility] DM and [facility] HTN clinic with Kyleigh Hyman, Fredy, DRU Problem Noted Date Diagnosed Date Renal osteodystrophy 03/26/2025 Decreased cardiac ejection fraction 01/18/2025 Overview (01/18/2025): [...] in the nest month with them 01/18/25 Decreased hearing 01/18/2025 Overview (03/14/2025): Reports decreased hearing, desires audiology evaluation. -audiogram 03/06/25 reveals mild to moderate sensorineural hearing loss. Amplification recommended to facilitate improved communication. 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 Re-evaluate in 1 year to monitor. Assessment & Plan (01/18/2025 11:33 AM EDT): Reports decreased hearing, desires audiology evaluation. -referred to audiology 01/18/25 Cardiac risk counseling 07/26/2024 Overview (07/26/2024): Calculated 07/26/24 The ASCVD Risk score (Selvin SMTIH, et al., 2019) failed to calculate for [...] due after 12/27/25 -eye care facilitated by [facility] and [facility], seen 12/2024 -has dentures -health care proxy 06/28/24 Assessment & Plan (06/28/2024 3:34 PM EDT): -next physical exam due after 07/28/2024 -eye care facilitated by [facility] next appointment in April 2023. -only has dentures. -health care proxy 06/28/24 Assessment & Plan (07/28/2023 3:38 PM EDT): -next physical exam due after 07/28/2024 -eye care facilitated by [facility] next appointment in April 2023. -dental home is Assessment & Plan (04/14/2023 4:09 PM EDT): -next physical exam due after -eye care facilitated by [facility] next appointment in April 2023. -dental home [...] EF 45-50% Recurrent major depressive episodes, moderate (C MS/HCC) 10/16/2022 Overview (12/27/2024): Denies suicidial or homacidial ideation. [...] of TARA but has never tolerated C-PAP. Stage 3b chronic kidney disease (CMS/HCC) 2020 Overview (01/18/2025): Lab Results Component Value Date [...] reflux disease 06/27/2012 Hypertensive disorder 06/27/2012 Overview (07/19/2025): -BP at goal -continue lisinopril 40 mg qd -continue amlodipine to 5 mg qd. -Importance of low-sodium diet and regular moderate physical activity discussed. Assessment & Plan (07/19/2025 11:22 AM EDT): -BP at goal -continue lisinopril 40 mg qd -continue amlodipine to 5 mg qd. -Importance of [...] discussed. Type 2 diabetes mellitus wit h stage 3b chronic kidney disease, with long-term current use of insulin 10/18/2003 Overview (08/06/2025): Re-enrolled in [facility] 07/14/24 Lab Results Component Value Date HGBA1C 8.0 (A) 07/19/2025 HGBA1C 8.1 (A) 06/29/2025 HGBA1C 8.0 (A) 03/26/2025 Lab Results Component Value Date MICROALBUR 427.0 01/03/2025 CREATININE 1.42 (H) 01/03/2025 -Clem/Arb: lisinopril 40mg -Statin therapy: atorvastatin 40mg -Diabetic eye exam: with [facility] 12/31/24 -Diabetic foot exam: Done12/27/24 -Continue lifestyle modifications -metformin discontinued due to CKD in past -Lantus and Humalog titrated by [facility] -Jardiance increased to 25mg once daily by [facility] 08/11/24 -Trulicity increased to 4.5mg once weekly by [facility] 06/29/25 -SMBG via Russell 3 plus CGM -Given lancets to test BGL 06/28/24 Was last seen in [facility] clinic 08/06/25: -Continue Trulicity 4.5mg once weekly - Lantus and Humalog titrated for further management of hyperglycemia - Continue focus on meal portions and healthy diet and lifestyle Assessment & Plan (01/18/2025 11:36 AM EDT): Re-enrolled in [facility] 07/14/24 Lab Results Component Value Date HGBA1C [...] Plan (12/27/2024 1:19 PM EDT): Re-enrolled in [facility] 07/14/24 Lab Results Component Value Date HGBA1C 8.2 (A) 12/27/2024 HGBA1C 8.0 (A) 12/15/2024 HGBA1C 8.4 (H) 07/26/2024 Lab Results Component Value Date MICROALBUR 624.0 07/26/2024 CREATININE 1.46 (H) 07/26/2024 -Clem/Arb: lisinopril 40mg -Statin therapy: atorvastatin 40mg -Diabetic eye exam: Seen by [facility] eye care last done 12/2021. Referral done [...] atorvastatin 40mg -Diabetic eye exam: Seen by [facility] eye care last done 12/2021. Referral done [...] atorvastatin 40mg -Diabetic eye exam: Seen by [facility] eye care last done 12/2021. Referral done [...] atorvastatin 40mg -Diabetic eye exam: Seen by [facility] eye care last done 12/2021. Referral done 04/14/2023. -Diabetic foot exam: -Continue lifestyle modifications -Continue Lantus -Humalog -Jardiance 10mg Resolved Problems Problem Noted Date Diagnosed Date Resolved Date Preop examination 01/18/2025 03/14/2025 Overview (01/18/2025): Patient is acceptable risk for surgery. Ok to proceed to operating room without further risk stratification. Assessment & Plan (01/18/2025 11:39 AM EDT): Patient is acceptable risk for surgery. Ok to proceed to operating room without further risk stratification. Dietary counseling 01/18/2025 Assessment & Plan (01/18/2025 [...] saturated fat, and sodium. Exercise counseling 01/18/2025 03/14/20 Assessment & Plan (01/18/2025 11:34 AM EDT): Exercise Recommendations: At least 150 minutes of moderate-intensity physical activity per week, or an equivalent combination of moderate- and vigorous-intensity activity. Type 2 diabetes mellitus wit h retinopathy [...] Epigastric pain 10/16/2022 06/28/2024 Hypercalcemia 12/26/2020 06/28/2024 Hypertensive heart disease w [facility] heart failure 12/26/2020 08/08/2025 Shoulder pain 05/30/2014 12/27/2024 Depressive disorder 06/27/2012 02/11/20 23 Overview (02/09/2023): -Doing much better. -Given LBBB will given paroxetine 10mgd daily. Max dose 40 given renal insuffiency. Assessment & Plan (02/09/2023 9:08 AM EDT): -Doing much better. -Given LBBB will given paroxetine 10mgd daily. Max dose 40 given renal insuffiency. Obesity 06/27/2012 06/28/2024 Onychomycosis 06/27/2012 06/28/2024 Encounters Date Type Department Care Team Description 09/11/2025 Refill [facility] MED & PEDS [address] [place], [place] [phone] Winifred Herrera MD Primary hypertension 08/30/2025 Refill [facility] MEDICINE [address] [place] [address] Kyleigh Hyman, PharmWiliam Type 2 diabetes mellitus with other specified complication, unspecified whether small battery plate assembler insulin use (HCC) 08/27/2025 Patient Outreach [facility] [address] [place] [address] Winifred Herrera MD Care Coordination (CHW outreach for SDOH food needs-LVM /) 08/27/2025 Telephone [facility] MEDICINE [address] [place] [address] Kyleigh Hyman PharmD 08/24/2025 Travel 08/17/2025 Telephone [facility] MED[facility]INE [address] [place] [address] Winifred Herrera MD October Recalls 08/06/2025 Travel 07/24/2025 Refill [facility]INE [address] [place] [phone] Winifred Herrera MD Type 2 diabetes mellitus with stage 3 chronic kidney disease, with long-term current use of insulin, unspecified whether stage 3a or 3b CKD (HCC) 07/19/2025 10:30 AM EDT Office Visit [address] [address] Winifred Herrera MD Type 2 diabetes mellitus with other specified complication, unspecified whether small battery plate assembler insulin use (HCC) (Primary Dx); Primary hypertension; Encounter for immunization; Encounter for vaccination; Type 2 diabetes mellitus with stage 3 chronic kidney disease, with long-term current use of insulin, unspecified whether stage 3a or 3b CKD (HCC) 07/19/2025 Travel 07/18/2025 Telephone [facility] [address] [place] [phone] Winifred Herrera MD chart prep 07/12/2025 Patient Outreach [facility] [address], [place] [phone] Winifred Herrera MD Pre-visit Planning ([facility] unable to reach LVM ) 06/29/2025 Travel 06/14/[address] [address] Winifred Herrera MD Primary hypertension from Last 3 Months Immunizations Immunization Administration Dates Next Due Hep B, adult 12/05/2014,09/03/2014,02/19/2014 Influenza High-dose Quadriva lent Preservative Free 07/25/2021,01/30/2021 Influenza injectable quadriv alent IIV4 with preservative 08/25/2018,10/01/2017,08/12/2016 Influenza injectable quadriv alent preservative free 08/29/2015 Influenza, High Dose Seasona l, Preservative Free 07/19/2025,06/28/2024,10/26/2019 Influenza, IIV3, injectable 08/24/2014,0 07/01/2011,07/16/2010,11/04 Influenza, Split (incl. jeff fied surface antigen) 08/02/2013,06/27/2012 Influenza, Unspecified 07/25/2021,2020,08/24/2014,07/01,07/16/2010,11/04/2006 Pfizer Covid-19 Vaccine 12+ 07/19/2025, Pfizer Covid-19 Vaccine 12+ Bivalent 04/14/2023 Pneumococcal Conjugate PCV 20 03/08/2023 Pneumococcal Polysaccharide PPSV23 09/03/2014, RSV Bivalent 07/14/2024 Tdap 04/14/2023,06/27/2012,04/29/2007 Zoster, Recombinant 06/09/2022, 2,03/31/2022,03/31 Zoster, live 09/17/2014 Family History Medical History [...] Reading Time Taken Comments Blood Pressure 108/58 08/24/2025 3:08 PM EST Pulse 75 08/24/2025 3:08 PM EST Temperature 36.9 C (98.4 F) 07/19/2025 10:45 AM EDT Respiratory Rate 16 07/19/2025 10:45 AM EDT Oxygen Saturation 99% 07/19/2025 10:45 AM EDT Inhaled Oxygen Concentration - - Weight 108 kg (237 lb) 07/19/2025 10:45 AM EDT Height 167.6 cm (5' 6 ) 07/19/2025 10:45 AM EDT Body Mass Index 38.25 07/19/2025 10:45 AM EDT Plan of Treatment Upcoming Encounters Date Type Department Care Team (Late st Contact Info) Description 10/03/2025 2:00 PM EST Office Visit [facility] OPTOMETRY [address] [place] [address] Teodoro, Chayo, OD [address] [place] [address] 10/08/2025 3:00 PM EST Medication Management [facility] MEDICINE [address] [place] [address] Kyleigh Hyman, PharmD [address] [place] [address] 10/24/2025 2:00 PM EST Office Visit [facility] MEDICINE [address] [place] [phone] Winifred Herrera MD [address] [place] [address] Health Maintenance Due Date Last Done Comments CT Colonography 1954 FIT DNA/Cologuard 1954 FIT 1954 FOBT 1954 Sigmoidoscopy 1954 SDOH Screening 06/28/2025 06/28/2024 Lipid Panel 07/26/2025 07/26/2024, 01/16, 10/13/2021, Additional history exists Diabetes: Hemoglobin A1C 10/19/2025 025, 06/29/2025, 03/26/2025, Additional history exists Alcohol/Substance Use Screening 12/27/2025 12/27/2024 COVID-19 Vaccine ( season) 2026 07/19/2025, 12/27/2024, 04/14/2023, Additional history exists Eye Exam 06/05/2026 06/05/2025, 08/18, 09/01/2024, Additional history exists Depression Screening 07/19/2026 07/19/2025, 07/19/20 25 Diabetes: Foot Exam 07/19/2026 07/19/2025, 07/19/2025, 07/19/2025, Additional history exists Tobacco Screening 07/19/2026 07/19/2025 Colonoscopy 08/12/2027 08/12/2017 Colorectal Cancer Screening 08/12/2027 DTaP/Tdap/Td Vaccines (4 - Td or Tdap) 04/14/2033 04/14/2023, 06/27/2012, 04/29/2007 Hepatitis B Vaccines Completed 12/05/2014, 09/03/2014, 02/19/2014 Zoster Vaccines Completed 06/09/2022, 05/19, 03/31/2022, Additional history exists Hepatitis C Screening Completed 03/02/2023 Pneumococcal Vaccine: 50+ Years Completed 03/08/2023, 09/03/2014, 11/04/2006 RSV Patients and Patients Aged 60 years or older Completed 07/14/2024 Influenza Vaccine Completed 07/19/2025, , 07/25/2021, Additional history exists HIB Vaccines Aged Out [...] 10:46 AM EDT) No Kyleigh Ramos PharmD Procedures Procedure Name Priority Date/Time Associated Diagnosis Comments POCT GLUCOSE Routine 08/06/2025 2:45 PM EDT Type 2 diabetes mellitus with stage 3 chronic kidney disease, with long-term current use of insulin, unspecified whether stage 3a or 3b CKD (HCC) POCT GLUCOSE Routine 08/06/2025 2:30 PM EDT Type 2 diabetes mellitus with stage 3 chronic kidney disease, with long-term current use of insulin, unspecified whether stage 3a or 3b CKD (HCC) POCT GLYCATED HEMOGLOBIN, TOTAL Routine 07/19/2025 10:46 AM EDT Type 2 diabetes mellitus with other specified complication, unspecified whether small battery plate assembler insulin use (HCC) POCT GLUCOSE Routine 07/19/2025 10:46 AM EDT Type 2 diabetes mellitus with other specified complication, unspecified whether small battery plate assembler insulin use (HCC) POCT GLYCATED HEMOGLOBIN, TOTAL Routine 06/29/2025 2:07 PM EDT Type 2 diabetes mellitus with other specified complication, unspecified whether small battery plate assembler insulin use (CMS/HCC) AMB REFERRAL TO OPHTHALMOLOGY Routine 06/05/2025 Combined forms of age-related cataract of both eyes LIPID PANEL, STANDARD Routine 07/26/2024 10:13 AM EDT Type 2 diabetes mellitus with stage 3 chronic kidney disease, with long-term current use of insulin, unspecified whether stage 3a or 3b CKD (CMS/HCC) HEPATITIS C AB W/REFL TO HCV RNA, QN, PCR Routine 03/02/2023 3:17 PM EDT HM COLONOSCOPY Routine 08/12/2017 from Last 3 Months or Most Recently Relevant to Health Maintenance Results * POCT Glucose (08/06/2025 2:45 PM EDT) Only the most recent of3 resultswithin the time period is included. Glucose Blood, POC 112 60 - 200 mg/dL QC Media Lot # [id number] Lot# Expiration Date 2482, Blood Capillary blood specimen / Unknown 08/06/2025 2:45 PM EDT Winifred Herrera MD POINT OF CARE TEST ENTER/E DIT ORDERABLES Final Result * (ABNORMAL) POCT Hgb A1c (07/19/2025 10:46 AM EDT) Only the most recent of2 resultswithin the time period is included. Hemoglobin A1C 8.0(A) 4.0 - 5.7 % QC Media Lot # [id number] Lot# Expiration Date ,135,125 Blood 07/19/2025 10:4 6 AM EDT us Winifred Herrera MD POINT OF CARE TEST ENTER/E DIT ORDERABLES Final Result * Referral to Ophthalmology (06/05/2025) us Chayo Valerio OD OUTPATIENT REFERRAL ORDERABLE S Final Result * Lipid Panel, Standard (07/26/2024 10:13 AM EDT) Triglycerides 74 <150 mg/dL [facility] Comment:Desirable Triglyceri de: less than 150 mg/dLBorderline High Triglyceride 150-199 mg/dLHigh Triglyceride: 200-499 mg/dLVery High Triglyceride: greater than or equal to 5OO mg/dL Cholesterol 98 <200 mg/dL [facility] Comment:Desirable Cholestero l: less than 200 mg/dLBorderline High Cholesterol: 200-239 mg/dLHigh Cholesterol: greater than 239 mg/dL LDL Cholesterol Calculated 42 <100 mg/dL [facility] Comment:Desirable LDL: less than 100 mg/dLNear Optimal/Above Optimal LDL: 110- 129 mg/dLBorderline High LDL: 130-159 mg/dLHigh LDL: 160-189 mg/dLVery High LDL: greater than or equal to 190 mg/dL HDL Cholesterol 42 >40 mg/dL [facility] Comment:Desirable HDL: great er than 40 mg/dL Note: This HDL assay may give artificially low results in patients with liver disease. Blood Venous blood specimen / Unknown 07/26/2024 10:13 AM EDT 07/26/2024 11:34 AM EDT us Winifred Herrera MD LAB BLOOD ORDERABLES Final Result [facility] [address] [place] [phone] * Hepatitis C Antibody with Reflex to HCV, RNA, Quantitative, Real-Time PCR (03/02/2023 3:17 PM EDT) Hepatitis C Antibody NON-REACT PHILIPP NON-REACT PHILIPP [facility] Index 0.16 <1.00 [facility] Comment: HCV antibody was non-reactive. There is no laboratory evidence of HCV infection. In most cases, no further action is required. However, if recent HCV exposure is suspected, a test for HCV RNA (test code 76212) is suggested. For additional information please refer to http://education.2CRisk/faq/TTT47m8 (This link is being provided for informational/ educational purposes only.) 03/02/2023 3:17 PM EDT 03/02/2023 3:17 PM EDT Narrative [facility] - 03/03/2023 8:57 AM EDT FASTING:NO FASTING: NO Winifred Herrera MD LAB BLOOD ORDERABLES Final Result [facility] [address], [place] [address] [facility] [address] [place] [address] * Hm Colonoscopy (08/12/2017) Colonoscopy hyperplastic plyp Dr. Navarrete Historical Provider HEALTH MAINTENANCE Final Result from Last 3 Months or Most Recently Relevant to Health Maintenance Insurance [facility] [employer] STANDARD Advance Directives Documents on File Type Date Recorded Patient Psychologist Industrial [employer]ational [employer] anation Advance Directives and Living Will 06/28/2024 Health Care Proxy 06/28/24 Care Teams Best Second Jobs Relationship Specialty Start Date End Date [place], [place] Winifred [address] [place] [address] PCP - General Family Medicine 10/18/18 Kyleigh Hyman, BradenD [address] [place] [address] Pharmacist Internal Medicine 02/15/23 Maged Ricardo MD [address] [facility] MARIA DEL CARMEN [address] [phone] Nephrology 12/19/24 Chayo Valerio OD [address] [place] [phone] Optometry 12/19/24 Melvin Palma [address] [place] [address] Ophthalmology 01/01/25
--- OUTSIDE RECORDS SUMMARY | 2025-09-11 10:39 | XMS_ITS | Encounter Summary ---
Author Organization [facility] Address [address] [facility] [address] [place] [address] Phone Care Team Providers Care Access Tech Name Role Phone Winifred Herrera MD Primary Care Provider [place] horn Encounter Details Date Type Department Care Team (Late st Contact Info) Description 01/08/2021 Orders Only [facility] [address] [facility] [address] [place] [address] ProviderJoe MD Social History Tobacco Use Types Packs/Day Years [...] Visit [facility] [address] [place] [address] Maged Ricardo MD [address] [facility] [address] [place] [phone] documented as of this encounter Procedures Procedure Name Priority Date/Time Associated Diagnosis Comments EXT RESULT ENTRY Routine 01/08/2021 documented in this encounter Results * EXT RESULT ENTRY (01/08/2021) Historical Provider LAB BLOOD ORDERABLES Martha l Result documented in this encounter Visit Diagnoses Not on filedocumented in this encounter Care Teams Access Tech Relationship Specialty Start Date End Date Winifred Herrera MD PCP - General 10/28/20 documented as of this encounter
--- OUTSIDE RECORDS SUMMARY | 2025-09-11 10:39 | XMS_ITS | Encounter Summary ---
Author Organization [facility] Address [address] [place] [address] Phone Care Team Providers Care Travel Ot Name Role Phone Winifred Herrera MD Primary Care Provider U belldarrelrocky Encounter Details Date Type Department Care Team (Late Contact Info) Description 03/17/2023 Telephone [facility] [address] [place] [address] Susan Wolff Social History Tobacco [...] Susan Wolff - 03/17/2023 9:22 AM EDT [facility] called tot relay med changes on this mutual PT. D/C hydrochlorothiazide Insulin Lantus 28 units once a day Insulin Lispro 6 units lunch, 8 units for dinner documented in this encounter Plan of Treatment Upcoming Encounters Date Type Department Care Team (Late st Contact Info) Description 09/24/2025 3:15 PM EST Office Visit [facility] [address] [place] [address] [place] [phone] Maged Ricardo MD [address] [facility] [address] [place] [address] documented as of this encounter Visit Diagnoses Not on filedocumented in this encounter Care Teams Travel Ot Relationship Specialty Start Date End Date Winifred Herrera MD PCP - General 10/28/20 documented as of this encounter
--- OUTSIDE RECORDS SUMMARY | 2025-09-11 10:39 | XMS_ITS | Encounter Summary ---
Author Organization [employer] Address [address] [facility] [address] [place] [address] Care Team Providers Care Service Electrician Name Role Phone Winifred Herrera MD Primary Care Provider [phone] Kyleigh Hyman PharmD Unavailable Maged Ricardo MD Unavailable Chayo Valerio OD Unavailable Melvin Palma Unavailable Encounter Details Date Type Department Care Team (Late st Contact Info) Description 11/02/2022 Abstract [facility] [address] [place] [address] Winifred Herrera MD [address] [place], [place] [phone] Social History Tobacco Use Types Packs/Day Years [...] Description 10/03/2025 2:00 PM EST Office Visit [facility] [address] [place], [place] [phone] Chayo Valerio, OD [address] [place] [address] 10/08/2025 3:00 PM EST Medication Management [address] [address] Kyleigh Hyman PharmD [address] [place] [address] 10/24/2025 2:00 PM EST Office Visit [address] [address] Winifred Herrera MD [address] [place] [phone] documented as of this encounter Procedures Procedure Name Priority Date/Time Associated Diagnosis Comments COLONOSCOPY Routine 08/12/2017 documented in this encounter Results * Colonoscopy (08/12/2017) Colonoscopy hyperplastic plyp Dr. Navarrete Historical Provider HEALTH MAINTENANCE Final Result documented in this encounter Visit Diagnoses Not on filedocumented in this encounter Care Teams Service Electrician Relationship Specialty Start Date End Date Winifred Herrera MD [address] [place] [address] PCP - General Family Medicine 10/18/18 Kyleigh Hyman, PharmD [address] [place] [address] Pharmacist Internal Medicine 02/15/23 Maged Ricardo MD [address] [address] Nephrology 12/19/24 Chayo Valerio OD [address] [place] [address] Optometry 12/19/24 Melvin Palma [address] [place] [address] Ophthalmology 01/01/25 documented as of this encounter
--- OUTSIDE RECORDS SUMMARY | 2025-09-11 10:39 | XMS_ITS | Encounter Summary ---
Author Organization [employer] Address [address] [facility] [address] [place] [address] Care Team Providers Care Liner Roll Changer Name Role Phone Bibb, Winifred ADAME Primary Care Provider [phone]- [phone] Kyleigh Hyman PharmD Unavailable Maged Ricardo MD Unavailable Teodoro, Chayo OD Unavailable [phone] Melvin Palma Unavailable Encounter Details Date Type Department Care Team (Late st Contact Info) Description 03/08/2023 Orders Only [facility] [address] [place], [place] [phone] Temitope Lo MD [address] [place], [place] [phone] Social History Tobacco Use Types Packs/Day Years [...] Description 10/03/2025 2:00 PM EST Office Visit [facility] [address] [place] [address] TeodoroChayo julien, OD [address] [place] [address] 10/08/2025 3:00 PM EST Medication Management [facility] [address] [place] [address] Kyleigh Hyman, PharmD [address] [place] [address] 10/24/2025 2:00 PM EST Office Visit [facility] [address] [place] [address] Winifred Herrera MD [address] [place] [address] documented as of this encounter Goals Goal Patient Goal Type Associated Problems Recent Progress Patient-Stated? Author Blood Pressure < 140/90 Blood Pressure 108/58(2024 3:08 PM EST) No RandysKyleigh Link, PharmD Hemoglobin A1c < 7 Result Component 8(07/19/2025 10:46 AM EDT) No Kyleigh Ramos, PharmD documented [...] PM EDT Narrative 03/31/2023 4:58 PM EDT [address] [address] XRay Report Signed Patient: Jourdan Macias MR#: [id number] : 1955 Acct:[id number] Age/Sex: 67 / M ADM Date: 03/31/23 Loc: HO.HHCX Attending Dr: Ruth Bland MD Ordering Physician: Ruth Bland MD Date of Service: 03/31/23 Procedure(s): XR wrist RT w scaphoid Accession Number(s): [id number] cc: Ruth Bland MD EXAMINATION: XR WRIST, [...] in OV> 03/31/23 1655 DD/ 1544 TD/TT: Social Media Senior Associate: VILLEGAS Procedure Note Donotuseinterpreter, Image - 04/14/2023 [facility] [address] [place] [address] XRay Report Signed Patient: Jourdan MaciasMR#: [id number] : 1955cct:[id number] Age/Sex: 67 / MADM Date: 03/31/23 Loc: HO.HHCX Attending Dr: Ruth Bland MD Ordering Physician: Ruth Bland MD Date of Service: 03/31/23 Procedure(s): XR wrist RT w scaphoid Accession Number(s): [id number] cc: Ruth Bland MD EXAMINATION: XR WRIST, [...] in OV> 03/31/23 1655 DD/ 1544 TD/TT: Social Media Senior Associate: VILLEGAS [facility] External Provider IMG XR PROCEDURES Final Result * XR Ankle 3+ Views Left (03/31/2023 3:44 PM EDT) Anatomical Region Laterality Modality Lower Extremities, Ankle Left Radiogr aphic Imaging 03/31/2023 3:44 PM EDT Narrative 03/31/2023 4:51 PM EDT [facility] [address] [place] [address] XRay Report Signed Patient: Jourdan Macias MR#: [id number] : 1955 Acct:[id number] Age/Sex: 67 / M ADM Date: 03/31/23 Loc: HO.HHCX Attending Dr: Ruth Bland MD Ordering Physician: Ruth Bland MD Date of Service: 03/31/23 Procedure(s): XR ankle LT min 3V Accession Number(s): [id number] cc: Ruth Bland MD EXAMINATION: XR ANKLE, [...] in OV> 03/31/23 1649 DD/ 1544 TD/TT: Social Media Senior Associate: VILLEGAS Procedure Note Donotuseinterpreter, Image - 04/14/[address] [address] XRay Report Signed Patient: Jourdan MaciasMR#: [id number] : 4Acct:[id number] Age/Sex: 67 / MADM Date: 03/31/23 Loc: HO.HHCX Attending Dr: Ruth Bland MD Ordering Physician: Ruth Bland MD Date of Service: 03/31/23 Procedure(s): XR ankle LT min 3V Accession Number(s): [id number] cc: Ruth Bland MD EXAMINATION: XR ANKLE, [...] in OV> 03/31/23 1649 DD/ 1544 TD/TT: Social Media Senior Associate: VILLEGAS [facility] External Provider IMG XR PROCEDURES Final Result documented in this encounter Visit Diagnoses Not on filedocumented in this encounter Additional Health Concerns Assessment Noted Time PHQ-9 Depression Total Score: 0 02/11/20 23 10:41 AM EDT documented as of this encounter Care Teams Liner Roll Changer Relationship Specialty Start Date End Date Winifred Herrera MD [address] [place] [address] PCP - General Family Medicine 10/18/18 Kyleigh Hyman PharmD [address] [place] [address] Pharmacist Internal Medicine 02/15/23 Maged Ricardo MD [address] [facility] [address] [place] [address] Nephrology 12/19/24 Chayo Valerio OD [address] [place] [address] Optometry 12/19/24 Melvin Palma [address] [place] [address] Ophthalmology 01/01/25 documented as of this encounter
[2025-09-11 12:08] LABS: Microalbum/Creatinine Ratio Ur 299.2 ug/mg cr (<30)
[2025-09-11 12:14] LABS: Alanine Aminotransferase 32 U/L (0-40); Albumin Level 4.5 g/dL (3.5-5.0); Alkaline Phosphatase 96 U/L (39-117); Anion Gap 12 (12-20); Aspartate Amino Transferase 34 U/L (5-37); Blood Urea Nitrogen 41 mg/dL (9-16); Calcium 11.1 mg/dL (8.4-10.2); Carbon Dioxide 27 mmol/L (22-29); Chloride 102 mmol/L (96-108); Cholesterol 94 mg/dL (<200); Estimated Glomerular Filt Rate 29; HDL Cholesterol 33 mg/dL (>40); Potassium 4.4 mmol/L (3.3-5.1); Sodium 137 mmol/L (135-145); Total Protein 7.8 g/dL (6.5-8.0); Triglycerides 83 mg/dL (<150)
== END 2025-09-11 09:23 | disposition home or self-care (01) ==
LOC: HO.HHCL 09:22
PROVIDERS: PCP Family Medicine; Visit Provider Family Medicine
DX: E11.8 Type 2 diabetes mellitus with unspecified complications (principal)
CPT/HCPCS: 36415; 80048; 80061; 80076; 82043; 82570; 83036

== ENCOUNTER 2025-09-25 14:04 | Outpatient (REF) | payer OTHER, SELFPAY ==
--- OUTSIDE RECORDS SUMMARY | 2025-09-24 15:15 | XMS_ITS | Encounter Summary ---
Author Organization [facility] Address [address] [address] Phone Care Team Providers Care Director Process Engineering Name Role Phone Winifred Herrera MD Primary Care Provider [place] kory Encounter Details Date Type Department Care Team (Latest Contact Info) Description 09/24/2025 3:15 PM EST Office Visit [facility] [address] [place] [phone] Maged Ricardo MD [address] [phone] Stage 3b chronic kidney disease (HCC) (Primary Dx); Type 2 diabetes mellitus with diabetic chronic kidney disease, not otherwise specified (HCC); Hypertensive heart disease with heart failure (HCC); Renal osteodystrophy Social History Tobacco Use Types Packs/Day Years Used Date Smoking Tobacco: Never Smokeless Tobacco: Never Sex and Gender Information Value Date Recorded Sex Assigned at Not on file Legal Sex Male 4:55 PM EST Gender Identity Not on file Sexual Orientation Not on file documented as of this encounter Last Filed Vital Signs Vital Sign Reading Time Taken Comments Blood Pressure 138/70 09/24/2025 3:07 PM EST Pulse 78 09/24/2025 3:07 PM EST Temperature - - Respiratory Rate - - Oxygen Saturation 98% 09/24/2025 3:07 PM EST Inhaled Oxygen Concentration - - Weight 106 kg (232 lb 12.8 oz) 09/24/2025 3:07 P M EST Height - - Body Mass Index 37.57 09/20/2020 12:00 PM EST documented in this encounter Functional Status * BP Answer Date of Assessment Author 138/70 09/24/2025 3:07 PM EST Barb Smith MA * Pulse Answer Date of Assessment Author 78 09/24/2025 3:07 PM Barb Morales MA * SpO2 Answer Date of Assessment Author 98 09/24/2025 3:07 PM Barb Morales MA * Weight Answer Date of Assessment Author 3724.8 09/24/2025 3:07 PM Barb Morales MA * BP Answer Date of Assessment Author 138/70 09/24/2025 3:07 PM Barb Morales MA * Weight Answer Date of Assessment Author 3724.8 09/24/2025 3:07 PM Barb Morales MA documented as of this encounter Patient Instructions * Patient Instructions* Maged Ricardo MD - 09/24/2025 3:15 PM EST Sodium and Your CKD Diet: How to Spice Up Your Cooking What is sodium? Sodium is a mineral found naturally in foods and is the major part of table salt. What are the effects of eating too much sodium? When your kidneys are not healthy, extra sodium and fluid build up in your body. This can cause swollen ankles, puffiness, a rise in blood pressure, shortness of breath, and/or fluid around your heart and lungs. See the following table for suggestions on how to reduce sodium in your diet. LIMIT THE [AMOUNT OF... FOOD TO LIMIT BECAUSE OF THEIR HIGH SODIUM CONTENT ACCEPTABLE SUBSTITUTES SALT & SALT SEASONINGS Table salt Seasoning salt Garlic salt Onion salt Celery salt Lemon pepper Lite salt Meat tenderizer Bouillon cubes Flavor enhancers Fresh garlic, fresh onion, garlic powder, onion powder, black [pepper, lemon juice, low-sodium/salt-free seasoning blends, vinegar SALTY FOODS Barbecue sauce Steak sauce Soy sauce Teriaky sauce Oyster sauce Salted Snacks such as Crackers Potato chips Kennard chips Pretzels Tortilla chips Nuts Popcorn [place]'S seeds Homemade or low- sodium sauces and salad dressings; Vinegar, dry mustard, unsalted popcorn, pretzels, tortilla or corn chips Cured Foods Ham Salt pork Stafford Sauerkraut Pickles, pickle relish Lox & Link Olives Fresh beef, veal, pork, poultry, fish, eggs [place] [employer] Hot Dogs Cold cuts, deli meats Pastrami Sausage Corned beef Spam Low-salt deli meats PROCESSED FOODS Buttermilk Cheese Canned: Soups Tomato products Vegetable juices Canned vegetables Convenience Foods such as: TV Dinners Canned raviolis Loda Macaroni & Cheese Spaghetti Frozen prepared foods Fast foods Natural cheese (1-2 oz Per week) Homemade or rebecca,1- sodium soups, canned food without added salt Homemade casseroles without added salt, made with fresh or raw vegetables, fresh meat, william, pasta, or unsalted canned vegetables Some salt or sodium is needed for body water balance. But when your kidneys lose the ability to control sodium and water balance, you may experience the following: thirst fluid gain high blood pressure discomfort during dialysis By using less sodium in your diet, you can control these problems. Hints to keep your sodium intake down Cook with herbs and spices instead of salt. (Refer to Spice Up Your Cooking section for further suggestions.) Read food labels and choose those foods low in sodium. Avoid salt substitutes and specialty low-sodium foods made with salt substitutes because they are high in potassium. When eating out, ask for meat or fish without salt. Ask for gravy or sauce on the side; these may contain large amounts of salt and should be used in small amounts . Limit use of canned, processed and frozen foods. Some information about reading labels Understanding the terms: Sodium Free - Only a trivial amount of sodium per serving. Very Low Sodium - 35 mg or less per serving. Low Sodium - 140 mg or less per serving. Reduced Sodium - Foods in which the level of sodium is reduced by 25%. Light or Lite in Sodium - Foods in which the sodium is reduced by at least 50% . Simple rule of thumb : If salt is listed in the first five ingredients, the item is probably too high in sodium to use. All food labels now have milligrams (mg) of sodium listed. Follow these steps when reading the sodiwn information on the label: 1. Know how much sodium you are allowed each day. Remember that there are 1000 milligrams (mg) in 1gram. For [id number], if your diet prescription is 2 grams of sodium , your limit is 2000 milligrams per day. Consider the sodium value or other food to be eaten during the day. 2. Look at the package label. Check the serving size. Nutrition values are expressed per marshall g. How does this compare to your total daily allowance? If the sodium level is 500 mg or more per serving, the item is not a good choice. 3. Compare labels of similar products. Select the lowest sodium level for the same serving size. How to Spice Up Your Cooking Giving up salt does not mean giving up flavor. Learn to season your food with herbs and spices. Be creative and experiment for a new and exciting flavor. What kinds of spices and herbs should I use instead of salt to add flavor? Try the following spices with the foods listed. Allspice: Use with beef, fish, beets, cabbage, canots, peas, fruit. Basil: Use with beef, pork, most vegetables. [place]: Use with beef, pork, most vegetables. [place]: Use with beef, pork, green beans, cauliflower, cabbage, beets, asparagus, and in dips and marinades. Cardamom: Use with fruit and in baked goods. Salazar: Use with beef, chicken, pork, fish, green beans, carrots and in marinades. Dill: Use with beef, chicken, green beans, cabbage, carrots, peas and in dips. Nasreen: Use with beef, chicken, pork, green beans, cauliflower and eggplant. Marjoram: Use with beef, chicken, pork, green beans, cauliflower and eggplant. Aleta: Use with chicken, pork, cauliflower, peas and in marinades. Thyme: Use with beef, chicken, pork, fish, green beans, beets and carrots. Uriel: Use with chicken, pork, eggplant and in dressing. Tarragon: Use with fish, chicken, asparagus, beets, cabbage, cauliflower and in marinades. Tips for cooking with herbs and spices Purchase spices and herbs in small amounts . When they sit on the shelf for years they lose their flavor. Use no more than ?? teaspoon of dried spice (?? of fresh) per pound of meat. Add ground spices to food about 15 minutes before the end of the cooking period. Add whole spices to food at least one hour before the end of the cooking period. Combine herbs with oil or butter, set for 30 minutes to bring out their flavor, then brush on foodswhile they cook, or brush meat with oil and sprinkle herbs one hour before coolcing. Crush dried herbs before adding to foods. Can I use salt substitutes? Caution! If you are told to limit potassium in your diet, be very cautious about using salt substitutes because most of them contain some form of potassium. Check with your doctor or dietitian beforeusing and salt substitute. Bonesteel and create your own seasoning containing those spices that you like. If you would like to become a volunteer and find out more about what's happening where you live, contact your local [facility] Affiliate. No NSAIDS - Do not take non-steroidal anti-inflammatory medications (NSAIDS) such as Ibuprofen (Advil, Motrin, etc), Naproxen (Aleve, etc), Celecoxib (Celebrex) or Ketoprofen. These common arthritis medications can cause permanent kidney damage or worsen your kidney damage. For mild occasional pain, Acetaminophen (Tylenol, etc) is safe for your kidneys. Blood pressure monitoring education: Monitor home blood pressure values after sitting for 5 minutes with back and arm support. Keep a log. Bring your log and blood pressure cuff to your next visit. documented in this encounter Progress Notes * Maged Ricardo MD - 09/24/2025 3:15 PM EST Images from the original note were not included. Patient Name: Jourdan Macias, Male Date of : 1955, 70 y.o. Date: 09/24/25 [] New Patient [x] Established Patient [] New Hospital Follow Up [] Established Hospital Follow Up [] Telemed Visit [] H&P Referring MD: Winifred Herrera MD PCP: Winifred Herrera MD Reason For Visit: CKD 3, DM, HTN Jourdan Macias is a 70 y.o. male seen today in f/u re: CKD 3 in setting of DM/HTN. Overall doing well. C/O MSK aches involving thigh pain and wrist pain. Meds reveiwed: cont on LUCIEN, SGLT2i and Kerendia and homa all meds well Last labs Scr 2.3 ( 08/2025) which is signif incr form previous BSL 1.5 to 1.7 range Denies chest pain or shortness of breath. No blood in the urine or difficulties urinating. Complains of mild arthritic complaints but avoids use of NSAIDs. The following portions of the patient's chart were reviewed in this encounter and updated as appropriate: Meds Constitutional: Negative for chills and fever. Respiratory: Negative for cough and shortness of breath. Cardiovascular: Negative for chest pain, palpitations and leg swelling. Gastrointestinal: Negative for abdominal pain, nausea and vomiting. Genitourinary: Negative for dysuria, frequency, hematuria and urgency. Full 13 point review of systems unremarkable except as noted above. Past Medical History: Diagnosis Date Chronic kidney disease stage 2 Chronic kidney disease stage 2 Chronic kidney disease stage 3B (HCC) Depressive disorder Gastroesophageal reflux disease Hypercalcemia Hypertension Hypertensive heart disease without heart failure Obesity Onychomycosis Osteonecrosis (HCC) Proteinuria Renal osteodystrophy Sleep apnea Small bowel obstruction (HCC) Type 2 diabetes mellitus (HCC) Past Surgical History: Procedure Laterality Date APPENDECTOMY Social History Tobacco Use Smoking status: Never Smokeless tobacco: Never Substance Use Topics Alcohol use: Not on file Comment: Alcoholic Drinks/day: Occasional social drink Family History Family history unknown: Yes Current Outpatient Medications Medication Sig Dispense Refill Acetaminophen Extra Strength 500 MG tablet Take 500 mg by mouth every 6 (six) hours if needed amLODIPine (NORVASC) 10 MG tablet TAKE 1 TABLET BY MOUTH EVERY EVENING 30 tablet 11 atorvastatin (LIPITOR) 40 MG tablet Take 1 tablet by mouth 1 (one) time each day cholecalciferol (VITAMIN D-3) 50 MCG (2000 UT) capsule Take 2,000 Units by mouth Dulaglutide (Trulicity) 3 MG/0.5ML solution auto-injector Inject 3 mg under the skin once a week Finerenone (Kerendia) 10 MG tablet Take 1 tablet by mouth every morning 30 tablet 2 insulin aspart (NovoLOG FLEXPEN) 100 UNIT/ML injection insulin glargine (Lantus SoloStar) 100 UNIT/ML injection 38 Units Insulin Lispro, 1 Unit Dial, 100 UNIT/ML solution pen-injector 10 units in the am and 14 units before dinner Jardiance 10 MG tablet Take 1 tablet by mouth lisinopril (PRINIVIL,ZESTRIL) 40 MG tablet Take 1 tablet by mouth 1 (one) time each day PARoxetine (PAXIL) 10 MG tablet Take 10 mg by mouth No current facility-administered medications for this visit. No Known Allergies Objective: Vitals: 09/24/25 1507 BP: 138/70 Pulse: 78 SpO2: 98% Weight: 232 lb 12.8 oz (106 kg) 132/70 Vitals reviewed. Constitutional: No distress. Cardiovascular: Normal rate, regular rhythm and normal heart sounds. He exhibits no edema. Pulmonary/Chest: Effort normal and breath sounds normal. No respiratory distress. Abdominal: Soft. There is no abdominal tenderness. No hernia. Skin: Skin is warm and dry. Psychiatric: He has a normal mood and affect. His behavior is normal. eGFR Date Value Ref Range Status 01/31/2020 73 >60 ml/min eGFR Non- Date Value Ref Range Status 12/15/2021 30 (L) > OR = 60 mL/min/1.73m2 Final Chemistry Lab Units 09/11/25 0932 03/22/25 0811 01/03/25 1423 07/26/24 1013 01/27/24 1337 CREATININE mg/dL 2.24* 1.57* 1.42* 1.46* 1.67* BUN mg/dL 41* 29* 28* 27* 30* GLUCOSE mg/dL 120* -- 177* 122* -- POTASSIUM mmol/L 4.4 4.1 4.2 4 4.2 SODIUM mmol/L 137 142 140 142 138 CO2 mmol/L 27 27 23 26 24 CHLORIDE mmol/L 102 110* 110* 110* 106 ALBUMIN g/dL -- -- -- -- 4.2 HEMOGLOBIN A1C % 7.9* -- -- 8.4* -- Bone Mineral Lab Units 09/11/25 0932 03/22/25 0811 01/03/25 1423 07/26/24 1013 01/27/24 1337 CALCIUM mg/dL 11.1* 9.9 9.5 9.2 9.8 PHOSPHORUS mg/dL -- -- -- -- 3.0 MAGNESIUM mg/dL -- -- -- -- 1.9 PTH pg/mL -- -- -- -- 43.6 VITAMIN D ng/mL -- -- -- -- 38.5 CBC Lab Units 01/27/24 1337 WBC AUTO X10*3/uL 8.7 RBC AUTO X10*6/uL 5.13 MCV fL 91.2 HEMATOCRIT % 46.8 HEMOGLOBIN g/dl 15.4 PLATELETS AUTO X10*3/uL 287 Urine Lab Units 03/22/25 0847 01/27/24 1443 PROT/CREAT RATIO UR 0.89* 0.45* ALB MG/G CREAT UR ug/mg cr 598.3* 243.1* Urine Lab Units 03/22/25 0847 01/27/24 1443 PH U 5.5 6.0 COLOR U Yellow Yellow GLUCOSE U MG/DL mg/dL >=1000* >=1000* WBC UR HPF /HPF 0-5 0-5 RBC UR HPF /HPF 0-2 0-2 PLAN: Assessment & Plan 70 Y/O M Acute Renal Disease ( ACD) on CKD 3 in DIABETIC HYPERTENSIVE PATINET ACD: incr Scr 1.6--> 2.3 is cocnerning and unclear if it was a transient or new BSL or new renalimjury event CKD 3b: c/w DN/HTN renal dis HTN: boderline controlled; goal < 130/80 DM Metabolic Bone Disease of CKD: cont to track CA, Phos, HCO3, PTH and vit D levels and treat accordingly Cont To Maximize renal protection: - cont use SHAI-inhibitor ( LUCIEN or ARB) -cont SGLT2i - cont Kerendia -target LDL < 70 - cont to stress strict BP/BS control and avoid NSAIDS -look to add GLP1a ( Ozempic) based on the FLOW trial PLAN: repeat renal labs and proceed with sero/urine studies and renal U/S; if repeat Scr remains > 2.0 then will d/c lsiinopril; avoid NSAIDs, check PTH/vit D 1. Stage 3b chronic kidney disease (HCC) 2. Type 2 diabetes mellitus with diabetic chronic kidney disease, not otherwise specified (HCC) 3. Hypertensive heart disease with heart failure (HCC) 4. Renal osteodystrophy Orders Placed This Encounter PTH, Intact Renal Function Panel Urinalysis with microscopic Urine Albumin / Creatinine Ratio Protein, Total, Random Urine w/Creatinine (Protein/Creat Ratio) Vitamin D 25 Hydroxy CBC Phosphorus Magnesium Albumin Calcium Creatine Kinase Return in about 3 months (around 12/23/2025). Maged Ricardo MD documented in this encounter Plan of Treatment Upcoming Encounters Date Type Department Care Team (Late st Contact Info) Description 12/24/2025 2:30 PM EDT Office Visit [facility] [address] [place] [phone] Maged Ricardo MD [phone] [facility] [address] [place] [phone] Scheduled Orders Name Type Priority Associated Diagnoses Orde r Schedule PTH, Intact Lab Routine Stage 3b chronic kidney disease (HCC) Type 2 diabetes mellitus with diabetic chronic kidney disease, not otherwise specified (HCC) Hypertensive heart disease with heart failure (HCC) Renal osteodystrophy Expected: 09/24/2025, Expires: 10/25/2026 Renal Function Panel Lab Routine Stage 3b chronic kidney disease (HCC) Type 2 diabetes mellitus with diabetic chronic kidney disease, not otherwise specified (HCC) Hypertensive heart disease with heart failure (HCC) Renal osteodystrophy Expected: 09/24/2025, Expires: 10/25/2026 Urinalysis with microscopic Lab Routine Stage 3b chronic kidney disease (HCC) Type 2 diabetes mellitus with diabetic chronic kidney disease, not otherwise specified (HCC) Hypertensive heart disease with heart failure (HCC) Renal osteodystrophy Expected: 09/24/2025, Expires: 10/25/2026 Urine Albumin / Creatinine Ratio Lab Routine Stage 3b chronic kidney disease (HCC) Type 2 diabetes mellitus with diabetic chronic kidney disease, not otherwise specified (HCC) Hypertensive heart disease with heart failure (HCC) Renal osteodystrophy Expected: 09/24/2025, Expires: 10/25/2026 Protein, Total, Random Urine w/Creatinine (Protein/Creat Ratio) Lab Routine Stage 3b chronic kidney disease (HCC) Type 2 diabetes mellitus with diabetic chronic kidney disease, not otherwise specified (HCC) Hypertensive heart disease with heart failure (HCC) Renal osteodystrophy Expected: 09/24/2025, Expires: 10/25/2026 Vitamin D 25 Hydroxy Lab Routine Stage 3b chronic kidney disease (HCC) Type 2 diabetes mellitus with diabetic chronic kidney disease, not otherwise specified (HCC) Hypertensive heart disease with heart failure (HCC) Renal osteodystrophy Expected: 09/24/2025, Expires: 10/25/2026 CBC Lab Routine Stage 3b chronic kidney disease (HCC) Type 2 diabetes mellitus with diabetic chronic kidney disease, not otherwise specified (HCC) Hypertensive heart disease with heart failure (HCC) Renal osteodystrophy Expected: 09/24/2025, Expires: 10/25/2026 Phosphorus Lab Routine Stage 3b chronic kidney disease (HCC) Type 2 diabetes mellitus with diabetic chronic kidney disease, not otherwise specified (HCC) Hypertensive heart disease with heart failure (HCC) Renal osteodystrophy Expected: 09/24/2025, Expires: 10/25/2026 Magnesium Lab Routine Stage 3b chronic kidney disease (HCC) Type 2 diabetes mellitus with diabetic chronic kidney disease, not otherwise specified (HCC) Hypertensive heart disease with heart failure (HCC) Renal osteodystrophy Expected: 09/24/2025, Expires: 10/25/2026 Albumin Lab Routine Stage 3b chronic kidney disease (HCC) Type 2 diabetes mellitus with diabetic chronic kidney disease, not otherwise specified (HCC) Hypertensive heart disease with heart failure (HCC) Renal osteodystrophy Expected: 09/24/2025, Expires: 10/25/2026 Calcium Lab Routine Stage 3b chronic kidney disease (HCC) Type 2 diabetes mellitus with diabetic chronic kidney disease, not otherwise specified (HCC) Hypertensive heart disease with heart failure (HCC) Renal osteodystrophy Expected: 09/24/2025, Expires: 10/25/2026 documented as of this encounter Procedures Procedure Name Priority Date/Time Associated Diagnosis Comments CREATINE KINASE Routine 09/25/2025 2:17 PM EST Stage 3b chronic kidney disease (HCC) Type 2 diabetes mellitus with diabetic chronic kidney disease, not otherwise specified (HCC) Hypertensive heart disease with heart failure (HCC) Renal osteodystrophy documented in this encounter Results * (ABNORMAL) Creatine Kinase (09/25/2025 2:17 PM EST) Creatine Kinase (CK/CPK) 180(H) 38 - 174 U/L See order comments Blood Venous blood / Unknown 09/25/2025 2:17 PM EST 09/25/2025 2:17 PM EST us Maged Ricardo MD LAB BLOOD ORDERABLES Final Re sult WANDER See order comments [place] [address] documented in this encounter Visit Diagnoses Diagnosis Stage 3b chronic kidney disease (HCC)- Primary Type 2 diabetes mellitus with diabetic chronic kidney disease, not otherwise specified (HCC) Hypertensive heart disease with heart failure (HCC) Hypertensive heart disease with heart failure Renal osteodystrophy documented in this encounter Care Teams Director Process Engineering Relationship Specialty Start Date End Date Winifred Herrera MD PCP - General 10/28/20 documented as of this encounter
--- OUTSIDE RECORDS SUMMARY | 2025-09-25 20:03 | XMS_ITS | Encounter Summary ---
Author Organization [facility] Address [address] [phone] Phone Care Team Providers Care Contract Management Specialist Name Role Phone Winifred Herrera MD Primary Care Provider U navailable Reason for Visit * Reason Onset Date Comments Med Refill 09/20/2025 Encounter Details Date Type Department Care Team (Late st Contact Info) Description 09/20/2025 Refill [facility] [address] [phone] Corinne Diaz [address] [phone] Social History Tobacco Use Types Packs/Day Years [...] Office Visit [facility] [address] [place] [address] Maged Ricardo MD [address] [phone] documented as of this encounter Visit Diagnoses Not on filedocumented in this encounter Care Teams Contract Management Specialist Relationship Specialty Start Date End Date Winifred Herrera MD PCP - General 10/28/20 documented as of this encounter
--- OUTSIDE RECORDS SUMMARY | 2025-09-25 20:03 | XMS_ITS | Clinical Summary ---
Author Organization [facility] Address [address] [place] [address] Phone Care Team Providers Care Mail Processing Machine Operator Name Role Phone Winifred Herrera [...] mouth every 6 (six) hours if needed 2 Active cholecalciferol (VITAMIN D-3) 50 MCG (1999 UT) capsule Take 2,000 Units by mouth 2 Active Jardiance 10 MG tablet Take 1 tablet by mouth 2 Active PARoxetine (PAXIL) 10 MG tablet Take 10 mg by mouth 2 Active Insulin Lispro, 1 Unit Dial, 100 UNIT/ML solution pen-injector 10 units in the am and 14 units before dinner 3 Active amLODIPine (NORVASC) 10 MG tablet TAKE 1 TABLET BY MOUTH EVERY EVENING 30 tablet 11 3 Active Dulaglutide (Trulicity) 3 MG/0.5ML solution auto-injector Inject 3 mg under the skin once a week 5 Active Finerenone (Kerendia) 10 MG tablet Take 1 tablet by mouth every morning 30 tablet 2 5 Active Kerendia 10 MG tablet TAKE 1 TABLET BY MOUTH EVERY MORNING 30 tablet 2 5 09/20/20 25 Discontinu ed(Reorder (does not appear on AVS)) Active Problems Problem Noted Date Diagnosed Date Stage 3b chronic kidney disease 09/24/2025 Renal osteodystrophy 03/26/2025 Stage 3b chronic kidney disease 01/03/2024 Stage 3b chronic kidney disease 08/16/2023 Type 2 diabetes mellitus wit h diabetic chronic kidney disease 08/16/2023 Patient encounter status 04/14/2023 023 Overview (08/16/2023): -next physical exam due after 07/28/2024 -eye care facilitated by [facility] next appointment in April 2023. -dental home is Last Assessment & Plan: -next physical exam due after 07/28/2024 -eye care facilitated by [facility] next appointment in April 2023. -dental home is Dependent edema 03/02/2023 08/16/2023 Overview (08/16/2023): Encouraged to get labs today, if normal consider decreasing amlodipine. -Follow up CDTM as schdueled. Last Assessment & Plan: Encouraged to get labs today, if normal consider decreasing amlodipine. -Follow up CDTM as schdueled. Chronic kidney disease stage 2 12/26/2020 Hypertensive disorder 12/26/2020 Hypertensive heart disease [...] Encounters Date Type Department Care Team Description 09/24/2025 3:15 PM EST Office Visit [facility] [address] [place] [address] Maged Ricardo MD Stage 3b chronic kidney disease (HCC) (Primary Dx); Type 2 diabetes mellitus with diabetic chronic kidney disease, not otherwise specified (HCC); Hypertensive heart disease with heart failure (HCC); Renal osteodystrophy 09/20/2025 Refill [facility] [address] [address] Corinne Diaz 09/18/2025 Refill [facility] [address] [address] Zoila Barrera from Last 3 Months Immunizations Immunization Administration [...] oz) 09/24/2025 3:07 P M EST Height 167.6 cm (5' 6 ) 09/20/2020 12:00 PM EST Body Mass Index 37.57 09/20/2020 12:00 PM EST Plan of Treatment Upcoming Encounters Date Type Department Care Team (Late st Contact Info) Description 12/24/2025 2:30 PM EDT Office Visit [facility] [address] [place] [address] Maged Ricardo MD [address] [facility] [address] [place] [address] Health Maintenance Due Date Last Done Comments Colorectal Cancer Screening: Annual FOBT 2003 Colorectal Cancer Screening: Colonoscopy 2003 Colorectal Cancer Screening: Sigmoidoscopy 2003 Diabetes: Pedal Pulse Checked 02/15/2023 Diabetes: Sensory Foot Exam 02/15/2023 Diabetes: Visual Foot Exam 02/15/2023 Diabetes: Hemoglobin A1C 12/12/2025 025, 07/19/2025, 06/29/2025, Additional history exists Diabetes: Ophthalmology Exam 06/05/2026 06/05/2025 Hepatitis B Vaccine Aged Out 12/05/2014, 09/03/2014, 02/19/2014 No longer eligible based on patient's age to complete this topic Pneumococcal Vaccine: 50+ Years Completed 03/08/2023, 09/03/2014, 11/04/2006 Pneumococcal Vaccine: Peds (0 to 5 Years) and At-Risk Patients (6 to 49 Years) Discontinued 03/08/2023, 09/03/2014, 11/04/2006 Influenza Vaccine Completed 07/19/2025, , 07/25/2021, Additional history exists Procedures Procedure Name Priority Date/Time Associated Diagnosis Comments CREATINE KINASE Routine 09/25/2025 2:17 PM EST Stage 3b chronic kidney disease (HCC) Type 2 diabetes mellitus with diabetic chronic kidney disease, not otherwise specified (HCC) Hypertensive heart disease with heart failure (HCC) Renal osteodystrophy from Last 3 Months Results * (ABNORMAL) Creatine Kinase (09/25/2025 2:17 PM EST) Creatine Kinase (CK/CPK) 180(H) 38 - 174 U/L See order comments Blood Venous blood / Unknown 09/25/2025 2:17 PM EST 09/25/2025 2:17 PM EST us Maged Ricardo MD LAB BLOOD ORDERABLES Final Re sult [place] See order comments [place] [address] from Last 3 Months Insurance [facility] Care Teams Mail Processing Machine Operator Relationship Specialty Start Date End Date [place], Winifred Wilson MD PCP - General 10/28/20
--- OUTSIDE RECORDS SUMMARY | 2025-09-25 20:03 | XMS_ITS | Encounter Summary ---
Author Organization [facility] Address [address] [facility] [address] [place] [address] Phone Care Team Providers Care Blind Escort Name Role Phone Winifred Herrera MD Primary Care Provider [place] horn Encounter Details Date Type Department Care Team (Late st Contact Info) Description 01/08/2021 Orders Only [facility] [address] [facility] [address] [place] [address] ProviderJoe MD Social History Tobacco [...] Visit [facility] [address] [place] [phone] Maged Ricardo MD [address] [facility] [address] [place] [phone] documented as of this encounter Procedures Procedure Name Priority Date/Time Associated Diagnosis Comments EXT RESULT ENTRY Routine 01/08/2021 documented in this encounter Results * EXT RESULT ENTRY (01/08/2021) Historical Provider LAB BLOOD ORDERABLES Martha l Result documented in this encounter Visit Diagnoses Not on filedocumented in this encounter Care Teams Blind Escort Relationship Specialty Start Date End Date Winifred Herrera MD PCP - General 10/28/20 documented as of this encounter
--- OUTSIDE RECORDS SUMMARY | 2025-09-25 20:03 | XMS_ITS | Encounter Summary ---
Author Organization [facility] Address [address] [facility] [address] [place] [address] Phone Care Team Providers Care Relief Manager Name Role Phone Winifred Herrera MD Primary Care Provider U bellcarline Encounter Details Date Type Department Care Team (Late Contact Info) Description 03/17/2023 Telephone [facility] [address] [facility] [address] [place] [address] Susan Wolff Social History Tobacco [...] Susan Wolff - 03/17/2023 9:22 AM EDT [facility] called tot relay med changes on this mutual PT. D/C hydrochlorothiazide Insulin Lantus 28 units once a day Insulin Lispro 6 units lunch, 8 units for dinner documented in this encounter Plan of Treatment Upcoming Encounters Date Type Department Care Team (Late st Contact Info) Description 12/24/2025 2:30 PM EDT Office Visit [facility] [address] [place] [phone] Maged Ricardo MD [address] [facility] [address] [place] [address] documented as of this encounter Visit Diagnoses Not on filedocumented in this encounter Care Teams Relief Manager Relationship Specialty Start Date End Date Winifred Herrera, MD PCP - General 10/28/20 documented as of this encounter
== END 2025-09-25 14:05 ==
LOC: HO.LAB 14:04
PROVIDERS: PCP Family Medicine; Visit Provider Internal Medicine Nephrology
DX: I12.9 Hypertensive chronic kidney disease with stage 1 through stage 4 chronic kidney disease, or unspecified chronic kidney disease (principal); N18.32 Chronic kidney disease, stage 3b; E11.22 Type 2 diabetes mellitus with diabetic chronic kidney disease; N25.0 Renal osteodystrophy
CPT/HCPCS: 36415; 82550

== ENCOUNTER 2025-09-27 10:38 | Outpatient (REF) | payer OTHER, SELFPAY ==
[2025-09-27 10:53] LABS: MANUAL DIFF FLAG NO
[2025-09-27 11:17] LABS: Hematocrit 48.4 % (42.0-52.0); Hemoglobin 15.5 g/dl (14.0-18.0); Imm Gran Abs Auto 0.07 X10*3/uL (0.00-0.03); Imm Gran Pct Auto 0.9 % (0.0-0.4); Lymphocytes Absolute Auto 2.0 X10*3/uL (1.2-4.9); Mean Corpuscular HGB Conc 32.0 g/dl (31.0-36.0); Mean Corpuscular Hemoglobin 30.1 pg (27.0-33.0); Mean Corpuscular Volume 94.0 fL (80.0-98.0); NRBC Abs Auto 0.000 X10*3/uL (0.0-0.012); NRBC Pct Auto 0.0 /100WBC (0.0-0.2); Platelet Count 392 X10*3/uL (160-400); Red Blood Count 5.15 X10*6/uL (4.60-5.80); White Blood Count 7.8 X10*3/uL (4.8-10.8)
[2025-09-27 11:56] LABS: Parathyroid Hormone Intact 16.1 pg/mL (8.7-77.1)
[2025-09-27 11:57] LABS: Albumin Level 4.3 g/dL (3.5-5.0); Anion Gap 10 (12-20); Blood Urea Nitrogen 47 mg/dL (9-16); Calcium 10.7 mg/dL (8.4-10.2); Carbon Dioxide 26 mmol/L (22-29); Chloride 106 mmol/L (96-108); Magnesium 1.9 mg/dL (1.6-2.6); Potassium 4.4 mmol/L (3.3-5.1); Sodium 138 mmol/L (135-145)
[2025-09-27 12:14] LABS: Appearance Urine Clear; Glucose Urine UA >=1000 mg/dL (Negative); PH 5.5 (5.0-9.0); Specific Gravity - Urine 1.020 (1.005-1.025); UMIC TRIGGER UA YES
[2025-09-27 12:42] LABS: Microalbum/Creatinine Ratio Ur 253.1 ug/mg cr (<30); Protein/Creatinine Ratio, Ur 0.42 (<0.2); Total Protein Urine Random 37 mg/dL (<12)
== END 2025-09-27 10:39 ==
LOC: HO.LAB 10:38
PROVIDERS: Absent Provider Internal Medicine Nephrology; PCP Family Medicine; Visit Provider Family Medicine
DX: I12.9 Hypertensive chronic kidney disease with stage 1 through stage 4 chronic kidney disease, or unspecified chronic kidney disease (principal); E11.22 Type 2 diabetes mellitus with diabetic chronic kidney disease; N18.32 Chronic kidney disease, stage 3b; N25.0 Renal osteodystrophy
CPT/HCPCS: 36415; 80069; 81001; 82043; 82306; 82570; 83735; 83970; 84156; 85025